=== PATIENT | female | born 1980 | race Caucasian/White ===

== ENCOUNTER → 2016-05-18 | Outpatient (REF) | payer BC ==
[~2016-05-18] MED LIST: /ESOM40CA PO; /ONDA4TA PO; ACET65TA OR; ALBU17IN INH; ALBU83IN INH; BACITAB3 PO; CETI10TA OR; CHOL4POW4 PO; CHOLPOW PO; CITA20TA4 PO; COUM1TAB17 PO; Celebrex PO; DOCU10CA PO; DYMI137S; FIRS1SOL3 PO; HYOS0.374 PO; IBUP80TA PO; LOPE-3 PO; LOVE0.8I3 SC; MAALOX OR; MAALSUS2 PO; MAALSUS8 PO; MACRODANTIN OR; METR500T10 PO; MULTTAB4 PO; MYLASUS2 PO; NORC5TAB PO; NORCOTAB PO; ONDA4TAB6 PO; PREN1TAB11 PO; PROT1TAB2 PO; PROTPAK PO; SING10TA32 PO; SUCR1TA PO; SUMA25TA3 PO; TYLE325T5 PO; Tramadol PO; VANC250C2 PO; VICO5TAB16 PO; VITA10002 PO; WARF-18 PO; WARF-23 PO; XARE20TA PO; ZOFR20TA PO; ZOFR4TAB3 PO; ZYRT10CA PO; prenatal vitamins OR
== END | disposition home or self-care (01) ==
LOC: M LAB REF 08:47
PROVIDERS: ATTEND Physician Assistant
DX: J11.1 Influenza due to unidentified influenza virus with other respiratory manifestations (principal)

== ENCOUNTER → 2016-06-17 | Outpatient (REF) | payer BC | LOC: M LAB REF 17:30 | PROVIDERS: ATTEND Advanced Practice Midwife | DX: Z12.4 Encounter for screening for malignant neoplasm of cervix (principal); R87.610 Atypical squamous cells of undetermined significance on cytologic smear of cervix (ASC-US) ==

== ENCOUNTER 2017-04-11 20:28 | Emergency (ER) | payer BC ==
[2017-04-11] MEDS: NS 1,000 ML IV (21:15)
[2017-04-11] MEDS: ONDANSETRON 4MG/2ML VIAL (J2405) IV (21:15)
[2017-04-11] MEDS: GASTROGRAFIN SOLUTION 30ML PO (21:30)
[2017-04-11 21:37] LABS: KETONE, URINE AUTO RFX TRACE mg/dL (NEGATIVE); LEUKOCYTE ESTERASE UR AUTO RFX NEGATIVE (NEGATIVE); MUCUS, URINE RFX SMALL (NEGATIVE); NITRITE, URINE AUTO RFX NEGATIVE (NEGATIVE); RBC, URINE AUTO RFX 2 /HPF (0-3); SPECIFIC GRAVITY UR AUTO RFX 1.025 (1.002-1.035); SQUAM EPITHELIAL CELL UR AURFX 1 /HPF (0-6); WBC, URINE AUTO RFX 2 /HPF (0-3)
[2017-04-11] MEDS: MORPHINE 2 MG/ML 1ML SYRINGE IV (21:55)
[2017-04-11 22:00] LABS: BASO # 0.1 10^3/uL (0.0-0.2); BASO % 0.3 % (0.0-1.0); EOS % 0.1 % (0.0-3.0); HEMATOCRIT 44.7 % (36.0-47.0); HEMOGLOBIN 14.6 g/dl (12.0-16.0); IMMATURE GRANULOCYTE # 0.1 10^3/uL (0-0); IMMATURE GRANULOCYTE % 0.4 % (0-0); LYMPH # 1.6 10^3/uL (1.5-4.5); LYMPH % 9.3 % (24.0-44.0); MEAN CORPUSCULAR HEMOGLOBIN 29.9 pg (27.0-33.0); MEAN CORPUSCULAR HGB CONC 32.7 g/dl (32.0-36.5); MEAN CORPUSCULAR VOLUME 91.6 fl (80.0-96.0); MONO # 0.6 10^3/uL (0.0-0.8); MONO % 3.7 % (0.0-5.0); NEUTROPHILS # 14.4 10^3/uL (1.8-7.7); NEUTROPHILS % 86.2 % (36.0-66.0); PLATELET COUNT, AUTOMATED 353 10^3/uL (150-450); RED BLOOD COUNT 4.88 10^6/uL (4.00-5.40); RED CELL DISTRIBUTION WIDTH 12.4 % (11.5-14.5); WHITE BLOOD COUNT 16.8 10^3/uL (4.0-10.0)
[2017-04-11 22:15] LABS: CONTROL LINE UCG INT CTR LINE PRESENT; URINE PREG TEST NEGATIVE (NEGATIVE)
[2017-04-11 22:16] LABS: INR 1.16
[2017-04-11 22:25] LABS: ALBUMIN 3.6 GM/DL (3.2-5.2); ALBUMIN/GLOBULIN RATIO 0.73 (1.00-1.93); ALKALINE PHOSPHATASE 146 U/L (45-117); ALT/SGPT 22 U/L (12-78); ANION GAP 8 MEQ/L (8-16); AST/SGOT 14 U/L (7-37); BILIRUBIN,DIRECT < 0.1 MG/DL (0.0-0.2); BILIRUBIN,TOTAL 0.3 MG/DL (0.2-1.0); BLOOD UREA NITROGEN 9 MG/DL (7-18); CALCIUM LEVEL 8.7 MG/DL (8.5-10.1); CARBON DIOXIDE LEVEL 25 MEQ/L (21-32); CHLORIDE LEVEL 107 MEQ/L (98-107); CREATININE FOR GFR 0.78 MG/DL (0.55-1.02); GLOMERULAR FILTRATION RATE > 60.0 (>60); GLUCOSE, FASTING 82 MG/DL (70-105); LIPASE 108 U/L (73-393); POTASSIUM SERUM 3.6 MEQ/L (3.5-5.1); SODIUM LEVEL 140 MEQ/L (136-145); TOTAL PROTEIN 8.5 GM/DL (6.4-8.2)
[2017-04-11] MEDS: GASTROGRAFIN SOLUTION 30ML (Q9963) PO (22:35)
[2017-04-11] MEDS ORDERED: ISOVUE-370 76% 100ML VIAL (Q9967) As Ordered (22:43)
[2017-04-12] MEDS: CIPROFLOXACIN 500 MG TAB PO (00:02)
[2017-04-12] MEDS: NORCO 5/325MG TABLET (BULK FOR ED) PO (00:03)
== END 2017-04-12 00:11 | disposition home or self-care (01) ==
LOC: M ED 04-12 00:11
DX: N83.299 Other ovarian cyst, unspecified side (principal); N39.0 Urinary tract infection, site not specified; R10.9 Unspecified abdominal pain; Z87.440 Personal history of urinary (tract) infections; K58.9 Irritable bowel syndrome, unspecified; K21.9 Gastro-esophageal reflux disease without esophagitis; K57.90 Diverticulosis of intestine, part unspecified, without perforation or abscess without bleeding; Z97.5 Presence of (intrauterine) contraceptive device; Z79.899 Other long term (current) drug therapy; Z88.0 Allergy status to penicillin; Z88.8 Allergy status to other drugs, medicaments and biological substances; Z88.5 Allergy status to narcotic agent
CPT/HCPCS: Q9963

== ENCOUNTER → 2017-04-17 | Outpatient (REF) | payer BC | LOC: M LAB REF 18:14 | DX: R31.9 Hematuria, unspecified (principal) | CPT/HCPCS: 87086 ==

== ENCOUNTER → 2017-09-21 | Outpatient (CLI) | payer SELFPAY | LOC: M WUC 15:52 | DX: S60.211A Contusion of right wrist, initial encounter (principal); X58.XXXA Exposure to other specified factors, initial encounter; Y92.9 Unspecified place or not applicable; Y93.9 Activity, unspecified | CPT/HCPCS: 73110 ==

== ENCOUNTER 2018-03-05 14:21 | Emergency (ER) | payer BC, OTHER, SELFPAY ==
[2018-03-05] MEDS ORDERED: GI COCKTAIL 50ML BTL(HYOSCYAMINE/MAALOX/LIDOCAINE VISCOUS)(1:3:1) As Ordered (15:32)
[2018-03-05] MEDS: GI COCKTAIL 50ML BTL(HYOSCYAMINE/MAALOX/LIDOCAINE VISCOUS)(1:3:1) PO (15:35)
[2018-03-05 15:44] LABS: BASO % 0.2 % (0.0-1.0); HEMATOCRIT 40.3 % (36.0-47.0); HEMOGLOBIN 13.3 g/dl (12.0-15.5); IMMATURE GRANULOCYTE % 0.3 % (0-3.0); LYMPH # 0.8 10^3/uL (1.5-4.5); LYMPH % 4.7 % (24.0-44.0); MEAN CORPUSCULAR HEMOGLOBIN 29.7 pg (27.0-33.0); MONO # 0.7 10^3/uL (0.0-0.8); NEUTROPHILS % 90.8 % (36.0-66.0); PLATELET COUNT, AUTOMATED 368 10^3/uL (150-450); RED BLOOD COUNT 4.48 10^6/uL (4.00-5.40); RED CELL DISTRIBUTION WIDTH 12.7 % (11.5-14.5); WHITE BLOOD COUNT 17.6 10^3/uL (4.0-10.0)
[2018-03-05 15:50] LABS: CONTROL LINE HCG INT CTR LINE PRESENT; HCG, SERUM QUALITATIVE NEGATIVE (NEGATIVE); INR 1.58; PROTHROMBIN TIME 19.2 SECONDS (12.1-14.4)
[2018-03-05 15:51] LABS: PARTIAL THROMBOPLASTIN TIME 34.4 SECONDS (25.4-37.6)
[2018-03-05 15:58] LABS: ANION GAP 8 MEQ/L (8-16); BLOOD UREA NITROGEN 9 MG/DL (7-18); C REACTIVE PROTEIN QUANTITATIV 2.37 MG/DL (0.00-0.30); CALCIUM LEVEL 8.5 MG/DL (8.5-10.1); CARBON DIOXIDE LEVEL 24 MEQ/L (21-32); CHLORIDE LEVEL 105 MEQ/L (98-107); CK-MB VALUE MASS < 1.0 NG/ML (<3.6); CPK CREATINE PHOSPHOKINASE 78 U/L (26-192); CREATININE FOR GFR 0.96 MG/DL (0.55-1.30); GLOMERULAR FILTRATION RATE > 60.0 (>60); GLUCOSE, FASTING 100 MG/DL (70-100); MB/CK RELATIVE INDEX 1.28 (< OR =4); NT-PRO BNP 47 PG/ML (<125); POTASSIUM SERUM 3.8 MEQ/L (3.5-5.1); SODIUM LEVEL 137 MEQ/L (136-145); TROPONIN I < 0.02 NG/ML (< 0.10)
[2018-03-05 16:02] LABS: ERYTHROCYTE SEDIMENTATION RATE 28 mm/hr (0-20)
[2018-03-05] MEDS: ACETAMINOPHEN TAB 650MG DOSE (2X325MG) PO (16:03)
[2018-03-05] MEDS: NS 1,000 ML IV (16:04)
[2018-03-05] MEDS: KETOROLAC 30 MG/ML VIAL (J1885) IV (18:30)
[2018-03-05] MEDS ORDERED: ISOVUE-370 76% 100ML VIAL (Q9967) As Ordered (18:33)
[2018-03-05] MEDS: CLINDAMYCIN 150 MG CAP PO (20:00)
[2018-03-05] MEDS: NORCO 5/325MG TABLET (BULK FOR ED) PO (20:15)
== END 2018-03-05 20:24 | disposition home or self-care (01) ==
LOC: M ED 14:21
DX: J69.0 Pneumonitis due to inhalation of food and vomit (principal); K21.9 Gastro-esophageal reflux disease without esophagitis; G43.909 Migraine, unspecified, not intractable, without status migrainosus; F90.9 Attention-deficit hyperactivity disorder, unspecified type; M19.90 Unspecified osteoarthritis, unspecified site; K58.9 Irritable bowel syndrome, unspecified; Z86.711 Personal history of pulmonary embolism; Z86.19 Personal history of other infectious and parasitic diseases; Z79.01 Long term (current) use of anticoagulants; Z87.891 Personal history of nicotine dependence
CPT/HCPCS: Q9967

== ENCOUNTER → 2018-03-11 | Outpatient (REF) | payer OTHER | LOC: M LAB REF 13:28 | DX: R19.7 Diarrhea, unspecified (principal) | CPT/HCPCS: 87507 ==

== ENCOUNTER → 2018-07-17 | Outpatient (REF) | payer OTHER ==
[~2018-07-17] MED LIST changes: -/ESOM40CA PO; -/ONDA4TA PO; +BACITAB PO; -BACITAB3 PO; +BUPR300T34 PO; +BUSP10TA PO; +CIPR-249 PO; -CITA20TA4 PO; +CITA20TA6 PO; +CLIN150C14 PO; +CLON0.5T8 PO; +FERR325T3 PO; -FIRS1SOL3 PO; +FIRS50SO PO; +HYDR-3715 PO; +MAGN200T PO; +MELA3TAB49 PO; +METR-265 PO; -METR500T10 PO; +MYLASUS16 PO; -MYLASUS2 PO; +NEXI1CAP3 PO; +NEXI40CA PO; +NORC1TAB7 PO; -NORC5TAB PO; -NORCOTAB PO; +ONDA-1 PO; +RANI150T PO; -VANC250C2 PO; +VANC250C3 PO; -VICO5TAB16 PO; +VICO5TAB17 PO; +VYVA30CA4 PO; -ZOFR20TA PO; +ZOFR4TAB14 PO; +ZOFR4TAB16 PO; -ZOFR4TAB3 PO
== END ==
LOC: M LAB REF 12:25
PROVIDERS: ATTEND Nurse Practitioner Family
DX: N76.0 Acute vaginitis (principal)

== ENCOUNTER → 2018-12-15 | Outpatient (REF) | payer OTHER ==
[~2018-12-15] MED LIST changes: +CYAN100049 PO; -VITA10002 PO
[2018-12-18 14:42] LABS: HPV HYBRID CAPTURE II Negative (Negative)
== END ==
LOC: M LAB REF 14:56
PROVIDERS: ATTEND Advanced Practice Midwife
DX: Z12.4 Encounter for screening for malignant neoplasm of cervix (principal)
CPT/HCPCS: 87624; G0123

== ENCOUNTER → 2018-12-15 | Outpatient (REF) | payer OTHER ==
[2018-12-15 15:15] LABS: CHLAMYDIA DNA AMPLIFICATION NEGATIVE (NEGATIVE); GC DNA AMPLIFICATION NEGATIVE (NEGATIVE)
== END ==
LOC: M LAB REF 13:18
PROVIDERS: ATTEND Advanced Practice Midwife
DX: R10.2 Pelvic and perineal pain (principal)

== ENCOUNTER → 2018-12-22 | Outpatient (CLI) | payer BC, OTHER ==
[~2018-12-22] MED LIST changes: -BUPR300T34 PO; +BUPR300T92 PO; +CLON0.5T2 PO; -CLON0.5T8 PO; +LEVA45AE INH; +OMEP-221 OR; +RISP0.5T3 OR; +TRAZ-257 OR
--- NOTE | 2018-12-22 09:54 | REPMRS ---
Patient History The patient states she had a clinical breast exam in 2018. Family history of breast cancer at age 58 in mother, ovarian cancer at age 60 in maternal aunt, bladder cancer in father. Taking hormonal contraceptives for 2 years 6 months. 3D TOMOSYNTHESIS WAS PERFORMED. Digital Mammo Diagnostic Bilateral: December 22, 2018 - Exam #: [id number] Bilateral CC and MLO view(s) were taken. Technologist: Daphne Hunter, Technologist FINDINGS: The breast tissue is extremely dense which could obscure a lesion on mammography. There is no evidence of cancer on this mammogram. Assessment: BI-RADS/ACR category 2 mammogram. Benign Findings. Recommendation Routine screening mammogram of both breasts in 1 year (for women over age 40). This mammogram was interpreted with the aid of an FDA-approved computer-aided dectection system. THE LIFETIME RISK OF BREAST CANCER IS 28.6%, THEREFORE SUPPLEMENTAL SCREENING MRI OF THE BREASTS IS RECOMMENDED IN 6 MONTHS. Electronically Signed By: Jose Aguilera MD 12/22/18 0974
--- NOTE | 2018-12-23 04:41 | REP ---
Clinical: Irregular menstrual cycles and menorrhagia . Technique: Transabdominal pelvic ultrasound with color Doppler evaluation of the ovaries. Findings: Bladder is unremarkable and measures 7.2 x 2.1 x 5.0 cm Normal anteverted uterus measures 8.8 x 3.8 x 5.6 cm . The endometrial complex measures 2.5 mm thickness. No discrete uterine or endometrial abnormalities are appreciated. IUD identified in satisfactory position. Bilateral ovaries are normal in appearance and vascularity without evidence for torsion. Right ovary measures 3.2 x 2.0 x 2.4 cm ; R I = 0.58 . Left ovary measures 3.2 x 1.3 x 1.9 cm ; R I = 0.70. Incidental 2.1 cm right ovarian cyst likely physiologic. No pelvic free fluid or adnexal mass lesion Impression: 1. Normal pelvic ultrasound. Electronically Signed by Lenny Chahal MD 12/23/2018 04:32 A
== END ==
LOC: M RAD 09:07
PROVIDERS: ATTEND Advanced Practice Midwife
DX: N63.20 Unspecified lump in the left breast, unspecified quadrant (principal); N92.6 Irregular menstruation, unspecified

== ENCOUNTER 2019-03-01 14:13 | Emergency (ER) | payer BC, OTHER ==
[~2019-03-01] VITALS: Ht 162.6 cm; Wt 103.4 kg
[~2019-03-01 14:13] MED LIST changes: +BUPR300T34 PO; -BUPR300T92 PO; -LEVA45AE INH; -OMEP-221 OR; -RISP0.5T3 OR; -TRAZ-257 OR
--- NOTE | 2019-03-01 14:56 | REP ---
Head CT without contrast: History: Injury in a fall. Patient on blood thinner. Comparison study: November 17, 2011. CT findings: Bone window settings demonstrate an intact bony calvarium. There is no evidence of skull fracture or incidental bony calvarial lesion. The visualized paranasal sinuses appear clear. No intraorbital abnormality is seen. On soft tissue window setting images; the lateral, third, and fourth ventricles are normal in size and position. Aguilera-white differentiation pattern is normal above and below the tentorium. There are is no evidence of intracranial hemorrhage. No mass, edema, infarction, or midline shift is seen. No extra-axial fluid collection is appreciated. Impression: Negative noncontrast head CT. Electronically Signed by Kam Hsu MD 03/01/2019 02:47 P
--- NOTE | 2019-03-01 14:57 | REP ---
CT study of the cervical spine without contrast: History: Injury in a fall. Patient on blood thinner. Technique: Helical scanning is acquired and overlapping 2 mm high resolution axial images were generated and reviewed at bone and soft tissue window settings. Coronal and sagittal multiplanar re-formations images are generated. CT findings: There is no evidence of cervical spine element fracture. No skull base fracture is seen. Cervical vertebral body heights are preserved. Alignment is normal. Facet joints are normally aligned bilaterally at each cervical level on multiplanar re-formations images. There is no evidence of intraspinal or paraspinal hematoma. No extra vertebral abnormality is seen. There is minimal degenerative uncovertebral spurring on the left at C3-C4. There is straightening. No other finding. Impression: Minimal discogenic uncovertebral spurring on the left at C3-4. Straightening. Otherwise negative CT study of the cervical spine without contrast. No fracture seen. Electronically Signed by Kam Hsu MD 03/01/2019 02:49 P
[2019-03-01] MEDS ORDERED: LEVA45AE INH (15:06)
[2019-03-01] MEDS ORDERED: RISP0.5T3 OR (15:06)
[2019-03-01] MEDS ORDERED: TRAZ-163 OR (15:06)
[2019-03-01] MEDS ORDERED: OMEP-221 OR (15:06)
[2019-03-01 15:37] LABS: BASO # 0.1 10^3/uL (0.0-0.2); BASO % 0.6 % (0.0-1.0); EOS # 0.1 10^3/uL (0.0-0.5); EOS % 0.8 % (0.0-3.0); HEMATOCRIT 42.2 % (36.0-47.0); HEMOGLOBIN 13.5 g/dl (12.0-15.5); LYMPH # 1.8 10^3/uL (1.5-5.0); LYMPH % 22.9 % (24.0-44.0); MEAN CORPUSCULAR HEMOGLOBIN 29.3 pg (27.0-33.0); MEAN CORPUSCULAR VOLUME 91.5 fl (80.0-96.0); MONO # 0.5 10^3/uL (0.0-0.8); MONO % 6.7 % (0.0-5.0); NEUTROPHILS # 5.4 10^3/uL (1.5-8.5); NEUTROPHILS % 68.6 % (36.0-66.0); PLATELET COUNT, AUTOMATED 346 10^3/uL (150-450); RED BLOOD COUNT 4.61 10^6/uL (4.00-5.40); WHITE BLOOD COUNT 7.9 10^3/uL (4.0-10.0)
[2019-03-01 16:04] LABS: ALBUMIN 3.3 GM/DL (3.2-5.2); ALT/SGPT 14 U/L (12-78); BILIRUBIN,DIRECT < 0.1 MG/DL (0.0-0.2); BILIRUBIN,TOTAL 0.2 MG/DL (0.2-1.0); BLOOD UREA NITROGEN 5 MG/DL (7-18); CALCIUM LEVEL 8.5 MG/DL (8.5-10.1); CARBON DIOXIDE LEVEL 26 MEQ/L (21-32); CHLORIDE LEVEL 106 MEQ/L (98-107); CREATININE FOR GFR 0.94 MG/DL (0.55-1.30); GLOMERULAR FILTRATION RATE > 60.0 (>60); GLUCOSE, FASTING 85 MG/DL (70-100); LIPASE 50 U/L (73-393); SODIUM LEVEL 139 MEQ/L (136-145); TOTAL PROTEIN 7.3 GM/DL (6.4-8.2)
[2019-03-01] MEDS ORDERED: ISOVUE-370 76% 100ML VIAL (Q9967) As Ordered ONE (16:09)
--- NOTE | 2019-03-01 16:32 | REP ---
RIGHT ELBOW, FOUR VIEWS: There is no evidence of an acute fracture, dislocation or intrinsic bone disease. IMPRESSION: No fracture or dislocation. Electronically Signed by Jose Aguilera MD 03/02/2019 09:52 A
--- NOTE | 2019-03-01 16:33 | REP ---
RIGHT WRIST, FOUR VIEWS: There is no evidence of an acute fracture, dislocation or intrinsic bone disease. IMPRESSION: No fracture or dislocation. Electronically Signed by Jose Aguilera MD 03/02/2019 09:52 A
--- NOTE | 2019-03-01 16:47 | REP ---
Clinical: Intra-abdominal trauma. Technique: Axial contrast enhanced images from the lung bases to the pubic symphysis with coronal and sagittal re-formations using 100 ml Isovue 370 intravenous contrast material. Comparison: 04/11/2017. Findings: Lung bases are clear. Visualized heart and pericardium normal. No evidence for solid organ injury. Liver, spleen, pancreas, bilateral adrenal glands and kidneys are normal. Evidence of prior cholecystectomy. The enteric system is without obstruction or acute inflammatory process. Pelvis demonstrates normal bladder and age-appropriate uterus/adnexa with IUD in satisfactory position. No ascites. No free air. No adenopathy. Abdominal aorta and vasculature appear normal. Musculoskeletal structures are intact. Impression: No acute abdominopelvic pathology or trauma/injury. Electronically Signed by Lenny Chahal MD 03/01/2019 04:39 P
--- NOTE | 2019-03-01 17:12 | REP ---
Lumbar spine series: Five views. History: Trauma. Findings: Five views of the lumbar spine presented. There are clips in right upper quadrant of the abdomen post cholecystectomy. An IUD is seen in the central pelvis. Lumbar vertebral body heights are preserved. Alignment is normal. Disc spaces are maintained. There is no evidence of spondylolysis or spondylolisthesis. No fracture or collapse is seen. No transverse process fracture is seen. Psoas margins are intact. Sacrum and SI joints are intact. There is mild facet hypertrophy bilaterally at L5-S1. Impression: Negative lumbar spine radiographs. No traumatic abnormality noted. Surgical clips in the right upper quadrant. IUD projects in the central pelvis. Electronically Signed by Kam Hsu MD 03/02/2019 10:44 A
[2019-03-01] MEDS ORDERED: ACETAMINOPHEN TAB 650MG DOSE (2X325MG) PO ONE (17:45)
[2019-03-01 18:11] VITALS: BP 125/72
== END 2019-03-01 18:15 | disposition home or self-care (01) ==
LOC: M ED 14:13
DX: S09.90XA Unspecified injury of head, initial encounter (principal); S50.01XA Contusion of right elbow, initial encounter; S63.501A Unspecified sprain of right wrist, initial encounter; S16.1XXA Strain of muscle, fascia and tendon at neck level, initial encounter; S30.0XXA Contusion of lower back and pelvis, initial encounter; W10.8XXA Fall (on) (from) other stairs and steps, initial encounter; Y92.018 Other place in single-family (private) house as the place of occurrence of the external cause; J45.909 Unspecified asthma, uncomplicated; F33.9 Major depressive disorder, recurrent, unspecified; F41.9 Anxiety disorder, unspecified; F43.10 Post-traumatic stress disorder, unspecified; Z79.899 Other long term (current) drug therapy; Z79.01 Long term (current) use of anticoagulants; Z88.0 Allergy status to penicillin; Z88.1 Allergy status to other antibiotic agents; Z88.5 Allergy status to narcotic agent; Z88.8 Allergy status to other drugs, medicaments and biological substances
CPT/HCPCS: 36415; 70450; 72110; 72125; 73080; 73110; 74177; 80048; 80076; 81001; 83690; 85025; 99283; Q9967

== ENCOUNTER → 2019-12-03 | Outpatient (CLI) | payer BC, OTHER ==
[~2019-12-03] MED LIST changes: +BUPR15TA PO; -BUPR300T34 PO; +BUPR300T92 PO; +FAMO40TA3 PO; +FROV2.5T6 PO; +LEVA45AE INH; +OMEP-221 OR; +PRED20TA PO; +RISP0.5T3 OR; +TRAZ-257 OR
--- NOTE | 2019-12-21 15:57 | REP ---
CHEST X-RAY: HISTORY: Costochondral junction syndrome. TECHNIQUE: PA and lateral COMPARISON: 07/31/15 FINDINGS: Mediastinum and cardiac silhouette are normal. Lung oviedo are clear. No focal consolidation, effusion or pneumothorax. Surrounding musculoskeletal structure are intact and normal in appearance. IMPRESSION: Normal chest x-ray. MTDD
== END ==
LOC: M WUC 11:42
PROVIDERS: ATTEND Registered Nurse
DX: M94.0 Chondrocostal junction syndrome [Tietze] (principal)

== ENCOUNTER 2020-01-03 19:58 | Emergency (ER) | payer BC, OTHER ==
[~2020-01-03] VITALS: Ht 162.6 cm; Wt 111.9 kg
[~2020-01-03 19:58] MED LIST changes: -BUPR15TA PO; -FAMO40TA3 PO; -FROV2.5T6 PO; -PRED20TA PO
[2020-01-03] MEDS ORDERED: FAMO40TA3 PO (20:16)
[2020-01-03] MEDS ORDERED: FROV2.5T6 PO (20:16)
[2020-01-03] MEDS ORDERED: BUPR15TA PO (20:19)
[2020-01-03] MEDS ORDERED: COMBIVENT RESPIMAT 100-20MCG INHALER 4GM INH SCH (21:00)
[2020-01-03] MEDS ORDERED: dexameTHASONE 20MG/5ML VIAL (J1100 PER 1MG) IV ONE (21:00)
[2020-01-03 21:10] LABS: BASO % 0.4 % (0.0-1.0); EOS # 0.1 10^3/uL (0.0-0.5); EOS % 0.9 % (0.0-3.0); HEMATOCRIT 39.6 % (36.0-47.0); HEMOGLOBIN 13.1 g/dl (12.0-15.5); LYMPH # 2.3 10^3/uL (1.5-5.0); LYMPH % 26.2 % (24.0-44.0); MEAN CORPUSCULAR HEMOGLOBIN 28.9 pg (27.0-33.0); MEAN CORPUSCULAR HGB CONC 33.1 g/dl (32.0-36.5); MEAN CORPUSCULAR VOLUME 87.2 fl (80.0-96.0); MONO # 0.5 10^3/uL (0.0-0.8); MONO % 5.8 % (0.0-5.0); NEUTROPHILS # 5.9 10^3/uL (1.5-8.5); NEUTROPHILS % 66.4 % (36.0-66.0); PLATELET COUNT, AUTOMATED 411 10^3/uL (150-450); RED BLOOD COUNT 4.54 10^6/uL (4.00-5.40); WHITE BLOOD COUNT 8.9 10^3/uL (4.0-10.0)
[2020-01-03 21:21] LABS: INR 1.13; PROTHROMBIN TIME 14.7 SECONDS (12.5-14.3)
[2020-01-03 21:45] LABS: ALBUMIN 3.2 GM/DL (3.2-5.2); ALT/SGPT 23 U/L (12-78); BILIRUBIN,DIRECT < 0.1 MG/DL (0.0-0.2); BILIRUBIN,TOTAL 0.2 MG/DL (0.2-1.0); BLOOD UREA NITROGEN 9 MG/DL (7-18); CALCIUM LEVEL 9.2 MG/DL (8.5-10.1); CARBON DIOXIDE LEVEL 24 MEQ/L (21-32); CHLORIDE LEVEL 107 MEQ/L (98-107); CK-MB VALUE MASS < 1.0 NG/ML (<3.6); CPK CREATINE PHOSPHOKINASE 63 U/L (26-192); GLOMERULAR FILTRATION RATE > 60.0 (>58); GLUCOSE, FASTING 88 MG/DL (70-100); MB/CK RELATIVE INDEX 1.59 (< OR =4); NT-PRO BNP 10 PG/ML (<125); SODIUM LEVEL 137 MEQ/L (136-145); THYROXINE (T4) 8.9 UG/DL (4.5-12.0); TOTAL PROTEIN 7.5 GM/DL (6.4-8.2); TROPONIN I < 0.02 NG/ML (< 0.10)
[2020-01-03 21:52] LABS: HCG, SERUM QUALITATIVE NEGATIVE (NEGATIVE)
--- NOTE | 2020-01-03 22:24 | REPVR ---
PROCEDURE INFORMATION: Exam: XR Chest, 1 View Exam date and time: 01/03/2020 8:47 PM Age: 39 years old Clinical indication: Chest pain; Type not specified; Additional info: Dyspnea/cough TECHNIQUE: Imaging protocol: XR of the chest Views: 1 view. COMPARISON: CR CHEST 2 VIEW 12/03/2019 11:57 AM FINDINGS: Lungs: Unremarkable. No consolidation. Pleural space: Unremarkable. No pleural effusion. No pneumothorax. Heart/Mediastinum: Unremarkable. No cardiomegaly. Bones/joints: Unremarkable. IMPRESSION: No acute findings. Electronically signed by: Maxim Figueroa On 01/03/2020 22:24:34 PM
[2020-01-03] MEDS ORDERED: PRED20TA PO (23:12)
[2020-01-03 23:30] VITALS: BP 120/83
--- NOTE | 2020-01-04 09:39 | ECGEPIP ---
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
== END 2020-01-03 23:57 | disposition home or self-care (01) ==
LOC: M ED 19:58
DX: J45.901 Unspecified asthma with (acute) exacerbation (principal); K21.9 Gastro-esophageal reflux disease without esophagitis; J30.2 Other seasonal allergic rhinitis; Z88.1 Allergy status to other antibiotic agents; Z88.8 Allergy status to other drugs, medicaments and biological substances; Z88.5 Allergy status to narcotic agent; Z79.3 Long term (current) use of hormonal contraceptives; Z79.899 Other long term (current) drug therapy
CPT/HCPCS: 71045; 80048; 80076; 82550; 82553; 83880; 84436; 84443; 84484; 84703; 85025; 85610; 87040; 93005; 93041; 94640; 94760; 96374; 99285; J1100

== ENCOUNTER → 2020-04-12 | Outpatient (CLI) | payer BC, OTHER ==
[~2020-04-12] MED LIST changes: +BUPR15TA PO; +FAMO40TA3 PO; +FROV2.5T6 PO; +PRED20TA PO; +RISP-7 OR; -RISP0.5T3 OR
[2020-04-12 14:30] LABS: MAGNESIUM LEVEL 2.2 MG/DL (1.8-2.4); PHOSPHORUS LEVEL 2.2 MG/DL (2.5-4.9)
== END ==
LOC: M LAB 12:09
PROVIDERS: ATTEND Internal Medicine
DX: M79.10 Myalgia, unspecified site (principal)

== ENCOUNTER → 2020-04-27 | Outpatient (CLI) | payer BC, OTHER ==
[~2020-04-27] MED LIST changes: -CLIN150C14 PO; +CLIN150C15 PO
--- NOTE | 2020-04-27 11:10 | REPMRS ---
Patient History The patient states she had a clinical breast exam in April 2020. Family history of breast cancer at age 58 in mother, ovarian cancer at age 60 in maternal aunt, unknown cancer in father. Took hormonal contraceptives for 4 years 10 months. 3D TOMOSYNTHESIS WAS PERFORMED. Volpara breast density a. Digital Woman Screen Mammo: April 27, 2020 - Exam #: [id number] Bilateral CC and MLO view(s) were taken. Technologist: Alix Crenshaw, Technologist Prior study comparison: December 22, 2018, digital mammo diagnostic bilateral, performed at [facility]. FINDINGS: There are scattered fibroglandular densities. There has been no change in the appearance of the mammogram from the prior studies. There is a mild amount of residual fibroglandular tissue which is fairly symmetric. There is no interval development of dominant mass, architectural distortion, or clustered microcalcification suggestive of malignancy. Assessment: BI-RADS/ACR category 1 mammogram. Negative Mammogram. Recommendation Routine screening mammogram in 1 year (for women over age 40). This mammogram was interpreted with the aid of an FDA-approved computer-aided dectection system. THE LIFETIME RISK OF BREAST CANCER IS 28.4%, THEREFORE SUPPLEMENTAL SCREENING MRI OF THE BREASTS IS RECOMMENDED IN 6 MONTHS. Electronically Signed By: Jose Aguilera MD 04/27/20 0232
== END ==
LOC: M WHC 09:33
PROVIDERS: ATTEND Advanced Practice Midwife
DX: Z12.31 Encounter for screening mammogram for malignant neoplasm of breast (principal)

== ENCOUNTER → 2020-05-25 | Outpatient (REF) | payer OTHER | LOC: M PLALAB 12:37 | PROVIDERS: ATTEND Nurse Practitioner Family | DX: E83.39 Other disorders of phosphorus metabolism (principal) ==

== ENCOUNTER → 2020-07-28 | Outpatient (REF) | payer OTHER | LOC: M SFHCRHEU 13:06 | PROVIDERS: ATTEND Internal Medicine | DX: E83.39 Other disorders of phosphorus metabolism (principal) ==

== ENCOUNTER → 2020-12-18 | Outpatient (CLI) | payer OTHER ==
[~2020-12-18] MED LIST changes: -CLIN150C15 PO; +CLIN150C17 PO
[2020-12-18 12:37] LABS: C REACTIVE PROTEIN QUANTITATIV 1.29 MG/DL (0.00-0.30); CPK CREATINE PHOSPHOKINASE 43 U/L (26-192); IRON (FE) 64 UG/DL (50-170); MAGNESIUM LEVEL 2.3 MG/DL (1.8-2.4); PHOSPHORUS LEVEL 2.1 MG/DL (2.5-4.9); RHEUMATOID FACTOR QUANT < 10.0 IU/ML (<15.0); TOTAL 25(OH) VITAMIN D 30.4 NG/ML (30.0-100.0); VITAMIN B12 LEVEL 432 PG/ML (247-911)
[2020-12-19 23:07] LABS: ANA (HEP2) Negative (.); CYCLIC CITRULLINATED PEPTIDE 7 units (0-19)
== END ==
LOC: M PLALAB 08:35
PROVIDERS: ATTEND Internal Medicine
DX: M79.10 Myalgia, unspecified site (principal); M25.50 Pain in unspecified joint

== ENCOUNTER → 2021-01-11 | Outpatient (CLI) | payer BC, OTHER ==
--- NOTE | 2021-01-16 16:41 | SLEEPHOME ---
DATE: 01/11/2021 ORDERED BY: Dr. Natalee Ramos Diagnostic home sleep testing was performed due to concern for the obstructive sleep apnea syndrome in this patient with a history of fatigue. For testing, a NOX T3 respiratory monitoring device was used. Continuous record was made of pulse, oxygen saturation, air flow, chest and abdominal strain, and body position. There was 9 hours and 59 minutes of data reviewed. There was 7 hours and 32 minutes marked as time in bed. During the interval marked time in bed, there were 41 respiratory events identified of 10 seconds in duration or greater for a respiratory event index of 5.4. The events were obstructive. Baseline pulse rate 85. Pulse rate ranged 67-105. Baseline saturation 95%. Saturations fell to 86%, and testing was performed in both the supine and nonsupine positions. IMPRESSION: Abnormal home sleep testing with repetitive respiratory events and oxygen desaturations to 86% with a respiratory event index of 5.4 is consistent with the obstructive sleep apnea syndrome. RECOMMENDATION: The patient should be encouraged to undergo formal sleep evaluation.
== END ==
LOC: M SLEEP HO 10:36
PROVIDERS: ATTEND Internal Medicine
DX: R53.83 Other fatigue (principal)

== ENCOUNTER 2021-02-14 20:24 | Emergency (ER) | payer BC, OTHER ==
[~2021-02-14] VITALS: Ht 162.6 cm; Wt 115.5 kg
--- OUTSIDE RECORDS SUMMARY | 2021-02-14 20:34 | CCD | Continuity of Care Document ---
Author Organization Unknown Address Unknown Phone Unavailable Care Team Providers Care Physiologist Name Role Phone Carol Tracey AUTM [phone] Rehana Hall AUTM [phone] Problems Description No Information Available Social History Type Date Description Comments Sex Unknown ETOH Use Denies alcohol use Tobacco Use Start: Unknown Patient has never smoked Allergies, Adverse Reactions, Alerts Active Allergies Criticality Reaction | Severity Comments Date Ceftin Unable to assess criticality Cruz 02/14/2015 Oxycodone Unable to assess criticality anxiety 02/14/2015 Inactive Allergies NKDA Unable to assess criticality 02/14/2015 Medications Active Medications SIG Qnty Indications Ordering Provide r Date Fluconazole 150mg Tablets Take 1 Tablet By Mouth Today. Repeat In 2 Days 2tabs KYLE Elizondo 12/15/2019 Famotidine 40mg Tablets Take 1 Tablet By Mouth Every Day 90tabs Chacorta Caicedo MD 07/13/2019 Nebulizer Device use as d irected Josefina Morales FNP 07/09/2019 Nebulizer Kit/Tubing/Mouthpiece K it use four times a day dx j44.9 Josefina Morales FNP Omeprazole 40mg Capsules DR Take 1 Capsule By Mouth Twice Daily 60caps KYLE Elizondo 02/08/20 17 Zyrtec Allergy 10mg Tablets 1 by mouth every day prn KYLE Traylor 01/05/2016 Tums 500mg Chewtabs as needed KYLE Florez 06/13/2015 Mirena 20mcg/24HR IUD Unknown 05/23/2015 Xarelto 20mg Tablets Take 1 Tablet By Mouth Every Day 30tabs Ratna Portillo M.D. 05/12/19 16 Hyoscyamine Sulfate ER 0.375mg Tablets ER 12HR Take 1 Tablet By Mouth Every 12 Hours as Directed 60tabs Rehana Hall, [facility] 2015 Zofran 4mg Tablets 1 by mouth every 6 hrs. as needed nausea 40tabs R19.7 Yrn Gil, [facility] 04/04/2015 [place] Carbonate 300mg Capsules one at bedtime Unknown Arnuity Ellipta 100mcg/Act Aerosol 1 inhalation daily Unknown Vyvanse 50mg Capsules Take one capsule PO once daily Unknown Aimovig 140mg/ml Solution Auto-Inject Unknown Benzonatate 100mg Capsules take 1 capsule by mouth three times a day as needed cough 60caps Colli molly Caicedo MD Trazodone HCL 100mg Tablets take one tablet by mouth at bedtime Unknown Frovatriptan Succinate 2.5mg Table ts take 1 tablet by mouth two times a day for 7 days before menses Unknown Levalbuterol Tartrate 45mcg/Act Ae rosol inhale 2 puffs by mouth four times a day Unknown Wellbutrin SR 150mg Tablets ER 12H R by mouth bid a day as directed Unknown Risperidone 0.5mg Tablets 1 by mouth Twice A Day Unknown Clonazepam 0.5mg Tablets 1 by mouth Twice a day Unknown Montelukast Sodium 10mg Tablets one at bedtime 30tabs KAMERON Melo JR 0 000 Medications Administered in Office Medication SIG Qnty Indications Ordering Provider Date Immunization Adminstration,1 Vaccine/Tox oid Injection Yrn Gil, [facility] 04/15/2018 Immunizations CPT Code Status Date Vaccine Lot # U-Flu Given 04/14/2020 Influenza,Unspecified [id number] Given 04/15/2018 Adacel- Tetanus Diphtheria P ertussis (Age64 & Under) [id number] Refused 01/23/2018 Influenza Virus Vaccine, Quadrivalent (Cciiv4), Derived From Cell [id number] Refused 01/13/2017 Influenza Vaccin e Quadrivalent Preser/Antibiotic Free Im Use [id number] Refused 01/13/2017 Influenza Vaccin e Quadrivalent Preser/Antibiotic Free Im Use Vital Signs Date Vital Result Comment 07/14/2020 11:29am BP Systolic 100 mmHg BP Diastolic 60 mmHg Height 64.25 inches 5'4.25" Weight 254.00 lb BMI (Body Mass Index) 43.3 kg/m2 12/09/2019 1:56pm BP Systolic 102 mmHg RT Arm BP Diastolic 60 mmHg RT Arm Heart Rate 108 /min Height 64.25 inches 5'4.25" Weight 247.00 lb BMI (Body Mass Index) 42.1 kg/m2 Results Test Acquired Date Facility Test Result H/L Range Note Laboratory test finding 12/18/2020 [facility] [address] [place] [address] [phone] Erythrocyte Sedimentation Rate 49 mm/hr High 0 -20 Phosphorus Level 2.1 mg/dL Low 2.5-4.9 CPK Creatine Phosphokinase 43 U/L Normal 26-192 Magnesium Level 2.3 mg/dL Normal 1.8-2.4 Iron (Fe) 64 g/dL Normal 50-170 Thyroid Stimulating Hormone 3.370 uIU/ML Normal 0.358-3.740 Vitamin B12 Level 432 pg/mL Normal 247-911 1 Total 25(Oh) Vitamin D 30.4 NG/ML Normal 30.0-100.0 Rheumatoid Factor Quant < 10.0 IU/mL Normal <15.0 C Reactive Protein Quantitativ 1.29 mg/dL High 0.00-0.30 Cyclic Citrullinated Peptide 7 units Normal 0-19 2 Landy Titer & Pattern 12/18/2020 [facility] nter [address] [place] [address] [phone] Landy (Hep2) Negative Normal . 3 1 VITAMIN B12 NORMAL RANGE NORMAL 247 - 911 PG/ML INDETERMINATE 211 - 246 PG/ML DEFICIENT LESS THAN 211 PG/ML 2 Negative <20 Weak positive 20 - 39 Moderate positive 40 - 59 Strong positive >59 3 Negative <1:80 Borderline 1:80 Positive >1:80 ICAP nomenclature: AC-0 For more information about Hep-2 cell patterns use ANApatterns.org, the official website for the International Consensus on Antinuclear Antibody (LANDY) Patterns (ICAP). Performed at: - [facility] [id number] Straddle Bug Operator: Dorinda Garcia MD, Phone: [phone] Performed at: - [facility] [address] [id number] Straddle Bug Operator: Claudia Butterfield MD, Phone: [phone] Procedures Date Code Description Status 07/14/2020 41537 Office/Outpatient Established Mo d MDM 30-39 Min Completed Medical Devices Description No Information Available Encounters Type Date Location Provider Dx Diagnosis Office Visit 07/14/2020 11:20a [facility] 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 Assessments Date Code Description Provider 07/14/2020 K58.0 Irritable bowel syndrome with di arrhea KAMERON Melo JR 07/14/2020 E55.9 Vitamin D deficiency, unspecifie d KAMERON Melo JR 07/14/2020 E78.00 Pure hypercholesterolemia, unspe cified KAMERON Melo JR 07/14/2020 F34.1 Dysthymic disorder KAMERON Schilling JR 07/14/2020 M94.0 Chondrocostal junction syndrome [Tietze] KAMERON Melo JR 07/14/2020 E66.01 Morbid (severe) obesity due to e xcess calories KAMERON Melo JR 07/14/2020 Z68.41 Body mass index [BMI]40.0-44.9, adult KAMERON Melo JR 07/14/2020 Z86.711 Personal history of pulmonary em bolism KAMERON Melo JR 07/14/2020 Z79.01 nursing home (current) use of antic oagulants KAMERON Melo JR Plan of Treatment Future Appointment(s):* 12/22/2020 11:20 am - KYLE Elizodno at [facility] 07/14/2020 - KAMERON Melo JR* K58.0 Irritable bowel syndrome with diarrhea* Comments:* Mostly stable at this time, continue diet and exercise, medications reviewed * E55.9 Vitamin D deficiency, unspecified* Comments:* Continues on supplementation at this time * E78.00 Pure hypercholesterolemia, unspecified* Comments:* reviewed diet and exercise recommendations * F34.1 Dysthymic disorder* Comments:* Follows with psych at [facility], medications reviewed and reconciled in the EMR. She gets all psych related meds there * M94.0 Chondrocostal junction syndrome [Tietze]* Comments:* Continues to have some issues, ibuprofen with relief on occasion * E66.01 Morbid (severe) obesity due to excess calories* Comments:* Diet and exercise reviewed in depth * Z68.41 Body mass index [BMI]40.0-44.9, adult * Z86.711 Personal history of pulmonary embolism* Comments:* Continues on Xarelto * Z79.01 nursing home (current) use of anticoagulants* Comments:* No active signs of bleeding Functional Status Description No Information Available Mental Status Description No Information Available Referrals Description No Information Available
--- OUTSIDE RECORDS SUMMARY | 2021-02-14 20:34 | CCD | Continuity of Care Document ---
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 05/12/19 16 Hyoscyamine Sulfate ER 0.375mg Tablets ER 12HR Take 1 Tablet By Mouth Every 12 Hours as Directed 60tabs Rehana Hall [facility] 2015 Zofran 4mg Tablets 1 by mouth every 6 hrs. as needed nausea 40tabs R19.7 Yrn Gil [facility] 04/04/2015 [place] Carbonate 300mg Capsules one at bedtime Unknown [...] Unknown Risperidone 0.5mg Tablets 1 by mouth tid Unknown Clonazepam 0.5mg Tablets 1 by mouth Twice a day Unknown Montelukast Sodium 10mg Tablets one at bedtime 30tabs KAMERON Melo JR 000 Medications Administered in Office Medication SIG Qnty Indications Ordering Provider Date Immunization Adminstration,1 Vaccine/Tox oid Injection Yrn Gil [facility] 04/15/2018 Immunizations CPT Code Status Date Vaccine Lot # U-Flu Given 04/14/2020 Influenza,Unspecified [id number] Given 04/15/2018 Adacel- Tetanus Diphtheria P ertussis [id number] Refused 01/23/2018 Influenza Virus Vaccine, Quadrivalent (Cciiv4), Derived From Cell [id number] Refused 01/13/2017 Influenza Vaccin e Quadrivalent Preser/Antibiotic Free Im Use 12931 Refused 01/13/2017 Influenza Vaccin e Quadrivalent Preser/Antibiotic Free Im Use Vital Signs Date Vital Result Comment 12/22/2020 11:26am BP Systolic 110 mmHg RT Arm BP Diastolic 80 mmHg RT Arm Heart Rate 100 /min Height 64.25 inches 5'4.25" Weight 256.25 lb BMI (Body Mass Index) 43.6 kg/m2 07/14/2020 11:29am BP Systolic 100 mmHg BP Diastolic 60 mmHg Height 64.25 inches 5'4.25" Weight 254.00 lb BMI (Body Mass Index) 43.3 kg/m2 Results Test Acquired Date Facility Test Result H/L Range Note Laboratory test finding 12/18/2020 [facility] [address] [place] [address] [phone] Erythrocyte Sedimentation Rate 49 mm/hr High 0 [...] 0-19 2 Landy Titer & Pattern 12/18/2020 [facility] nter [address] [place] [address] [phone] Landy (Hep2) Negative Normal . 3 1 VITAMIN B12 NORMAL RANGE NORMAL 247 - 911 PG/ML INDETERMINATE 211 - 246 PG/ML DEFICIENT LESS THAN 211 PG/ML 2 Negative <20 Weak positive 20 - 39 Moderate positive 40 - 59 Strong positive >59 3 Negative <1:80 Borderline 1:80 Positive >1:80 ICAP nomenclature: AC-0 For more information about Hep-2 cell patterns use ANArayoermolly.org, the official website for the International Consensus on Antinuclear Antibody (LANDY) Patterns (ICAP). Performed at: - [facility] [id number] Environmental Education Specialist: Dorinda Garcia MD, Phone: [phone] Performed at: - [facility] [address] [id number] Environmental Education Specialist: Claudia Butterfield MD, Phone: [phone] Procedures Date Code Description Status 07/14/2020 93302 Office/Outpatient Established Mo d MDM 30-39 Min Completed Medical Devices Description No Information Available Encounters Type Date Location Provider Dx Diagnosis Office Visit 07/14/2020 11:20a [facility] 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
--- OUTSIDE RECORDS SUMMARY | 2021-02-14 20:34 | CCD | Continuity of Care Document ---
Author Author Ness MARKHAM [facility] Organization Unknown Address [address] [place] [address] Phone [phone] Care Team Providers Care Licensed Professional Counselor Name Role Phone Carol Tracey ANP AUTM [phone] Rehana Markham AUTM [phone] Problems Description No Information Available Social History [...] by mouth every day prn Yrn Gil [employer] 01/05/2016 Tums 500mg Chewtabs as needed KYLE Florez 06/13/2015 Mirena 20mcg/24HR IUD Unknown 05/23/2015 Xarelto 20mg Tablets Take 1 Tablet By Mouth Every Day 30tabs Ratna Portillo M.D. 05/12/19 16 Hyoscyamine Sulfate ER 0.375mg Tablets ER 12HR Take 1 Tablet By Mouth Every 12 Hours as Directed 60tabs Rehana Markham [facility] 2015 Zofran 4mg Tablets 1 by mouth every 6 hrs. as needed nausea 40tabs R19.7 Yrn Gil [facility] 04/04/2015 Bergman Carbonate 300mg Capsules one at bedtime Unknown [...] Immunization Adminstration,1 Vaccine/Tox oid Injection Yrn Gil [facility] 04/15/2018 Immunizations CPT Code Status Date Vaccine Lot # U-Flu Given 04/14/2020 Influenza,Unspecified 65224 Given 04/15/2018 Adacel- Tetanus Diphtheria P ertussis [id number] Refused 01/23/2018 Influenza Virus Vaccine, Quadrivalent (Cciiv4), Derived From Cell [id number] Refused 01/13/2017 Influenza Vaccin e Quadrivalent Preser/Antibiotic Free Im Use [id number] Refused 01/13/2017 Influenza Vaccin e Quadrivalent Preser/Antibiotic [...] H/L Range Note Laboratory test finding 12/18/2020 [facility] [address] [place] [address] [phone] Erythrocyte Sedimentation Rate 49 mm/hr High 0 [...] 0-19 2 Landy Titer & Pattern 12/18/2020 [facility] nter [address] [place] [address] [phone] Landy (Hep2) Negative Normal . 3 1 [...] Antibody (LANDY) Patterns (ICAP). Performed at: - [facility] [id number] Intelligence Officer: Dorinda Garcia MD, Phone: [phone] Performed at: - [facility] [address] [id number] Intelligence Officer: Claudia Butterfield MD, Phone: [phone] Procedures Date Code Description Status 12/22/2020 44856 Office/Outpatient Established Mo d MDM 30-39 Min Completed 07/14/2020 17376 Office/Outpatient Established Mo d MDM 30-39 Min Completed Medical Devices Description No Information Available Encounters Type Date Location Provider Dx Diagnosis Office Visit 12/22/2020 11:20a [facility], [facility] G89.29 Other chronic pain E55.9 Vitamin D deficiency, unspec ified E78.00 Pure hypercholesterolemia, u nspecified Z86.711 Personal history of pulmonar y embolism Z79.01 assisted (current) use of a nticoagulants F34.1 Dysthymic disorder Office Visit 07/14/2020 11:20a [facility]CKAMERON Guidry JR K58.0 Irritable bowel syndrome wit h diarrhea E55.9 Vitamin D deficiency, unspec ified E78.00 Pure hypercholesterolemia, u nspecified F34.1 Dysthymic disorder M94.0 Chondrocostal junction syndr ome [Tietze] E66.01 Morbid (severe) obesity due to excess calories Z68.41 Body mass index [BMI] 40.0-4 4.9, adult Z86.711 Personal history of pulmonar y embolism 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 Assessments Date Code Description Provider 12/22/2020 G89.29 Other chronic pain Rehana Markham , [facility] 12/22/2020 E55.9 Vitamin D deficiency, unspecifie d Rehana Markham, [facility] 12/22/2020 E78.00 Pure hypercholesterolemia, unspe cified Rehana Markham, [facility] 12/22/2020 Z86.711 Personal history of pulmonary em bolism Rehana Moralesra, KYLE 12/22/2020 Z79.01 assisted (current) use of antic oagulants Rehana KYLE Markham 12/22/2020 F34.1 Dysthymic disorder Rehana Markham KYLE 07/14/2020 K58.0 Irritable bowel syndrome with di [...] em bolism KAMERON Melo JR 07/14/2020 Z79.01 assisted (current) use of antic oagulants KAMERON Melo JR Plan of Treatment Future Appointment(s):* 07/05/2021 11:00 am - KYLE Elizondo at [facility] 12/22/2020 - KYLE Elizondo* G89.29 Other chronic pain* Comments:* Following with [facility] Rheumatology. CRP remains elevated, RF is negative. Dr. Ramos has ordered a sleep study, but the patient reports that she and Dr. Ramos both be lieve her symptoms are caused by fibromyalgia. * E55.9 Vitamin D deficiency, unspecified* Comments:* Not currently supplemented. Last checked by rheumatology. * E78.00 Pure hypercholesterolemia, unspecified* Comments:* Check lipids in the spring at [facility]. No current pharmacotherapy. Weight loss, diet and exercise discussed and reinforced. * Z86.711 Personal history of pulmonary embolism* Comments:* On Xarelto at this point. 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 Functional Status Description No Information Available Mental Status Description No Information Available Referrals Description No Information Available
--- OUTSIDE RECORDS SUMMARY | 2021-02-14 20:34 | CCD | Continuity of Care Document ---
Author Organization Unknown Address Unknown Phone Unavailable Care Team Providers Care Allergy Physician Name Role Phone Carol Tracey AUTM [phone] Rehana Hall AUTM [phone] Problems Description No Information Available Social History [...] 12 Hours as Directed 60tabs Rehana Hall, [facility] 2015 Zofran 4mg Tablets 1 by mouth every 6 hrs. as needed nausea 40tabs R19.7 Yrn Gil, [facility] 04/04/2015 [place] Carbonate 300mg Capsules one at bedtime Unknown [...] Immunization Adminstration,1 Vaccine/Tox oid Injection Yrn Gil, [facility] 04/15/2018 Immunizations CPT Code Status Date Vaccine Lot # U-Flu Given 04/14/2020 Influenza,Unspecified 15913 Given 04/15/2018 Adacel- Tetanus Diphtheria P ertussis (Age64 & Under) [id number] Refused 01/23/2018 Influenza Virus Vaccine, Quadrivalent (Cciiv4), Derived From Cell [id number] Refused 01/13/2017 Influenza Vaccin e Quadrivalent Preser/Antibiotic Free Im Use [id number] Refused 01/13/2017 Influenza Vaccin e Quadrivalent Preser/Antibiotic [...] H/L Range Note Laboratory test finding 12/18/[address] [address] [phone] Erythrocyte Sedimentation Rate 49 mm/hr High 0 [...] Reactive Protein Quantitativ 1.29 mg/dL High 0.00-0.30 1 VITAMIN B12 NORMAL RANGE NORMAL 247 - 911 PG/ML INDETERMINATE 211 - 246 PG/ML DEFICIENT LESS THAN 211 PG/ML Procedures Date Code Description Status 07/14/2020 53699 Office/Outpatient Established Mo d MDM 30-39 Min Completed Medical Devices Description No Information Available Encounters Type Date Location Provider Dx Diagnosis Office Visit 07/14/2020 11:20a [facility] 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 07/14/2020 - KAMERON Melo JR* K58.0 Irritable bowel syndrome with diarrhea* Comments:* Mostly stable at this time, continue diet and exercise, medications reviewed * E55.9 Vitamin D deficiency, unspecified* Comments:* Continues on supplementation at this time * E78.00 Pure hypercholesterolemia, unspecified* Comments:* reviewed diet and exercise recommendations * F34.1 Dysthymic disorder* Comments:* Follows with psych at [place], medications reviewed and reconciled in the EMR. [...] embolism* Comments:* Continues on Xarelto * Z79.01 custodial (current) use of anticoagulants* Comments:* No active signs of bleeding Functional Status Description No Information Available Mental Status Description No Information Available Referrals Description No Information Available
--- OUTSIDE RECORDS SUMMARY | 2021-02-14 20:35 | CCD ---
Author Author [facility] Organization [facility] Address Unknown Phone Unavailable Care Team Providers Care Residential Care Facility Manager Name Role Phone Maring, Wang PA Unavailable Unavailable Maring, Wang PA Unavailable Unavailable Maring, Wang PA Unavailable Unavailable Maring, Wang PA Unavailable Unavailable Maring, Wang PA Unavailable Unavailable Maring, Wang PA Unavailable Unavailable Maring, Wang PA Unavailable Unavailable Maring, Wang PA Unavailable Unavailable Maring, Wang PA Unavailable Unavailable Maring, Wang PA Unavailable Unavailable Maring, Wang PA Unavailable Unavailable Maring, Wang PA Unavailable Unavailable Maring, Wang PA Unavailable Unavailable Maring, Wang PA Unavailable Unavailable Maring, Wang PA Unavailable Unavailable Maring, Wang PA Unavailable Unavailable Isabel, Rehana MACHINE LACER Unavailable Unavailable Isabel, Rehana MACHINE LACER Unavailable Unavailable Isabel, Rehana MACHINE LACER Unavailable Unavailable Isabel, Rehana MACHINE LACER Unavailable Unavailable Isabel, Rehana MACHINE LACER Unavailable Unavailable Isabel, Rehana MACHINE LACER Unavailable Unavailable Isabel, Rehana MACHINE LACER Unavailable Unavailable Isabel, Rehana MACHINE LACER Unavailable Unavailable Isabel, Rehana MACHINE LACER Unavailable Unavailable Isabel, Rehana MACHINE LACER Unavailable Unavailable Isabel, Rehana MACHINE LACER Unavailable Unavailable Isabel, Rehana MACHINE LACER Unavailable Unavailable Isabel, Rehana MACHINE LACER Unavailable Unavailable Isabel, Rehana MACHINE LACER Unavailable Unavailable Isabel, Rehana MACHINE LACER Unavailable Unavailable Isabel, Rehana MACHINE LACER Unavailable Unavailable Isabel, Rehana MACHINE LACER Unavailable Unavailable Isabel, Rehana MACHINE LACER Unavailable Unavailable Isabel, Rehana MACHINE LACER Unavailable Unavailable Isabel, Rehana MACHINE LACER Unavailable Unavailable Isabel, Rehana MACHINE LACER Unavailable Unavailable Isabel, Rehana MACHINE LACER Unavailable Unavailable Isabel, Rehana MACHINE LACER Unavailable Unavailable Isabel, Rehana MACHINE LACER Unavailable Unavailable Isabel, Rehana MACHINE LACER Unavailable Unavailable Isabel, Rehana MACHINE LACER Unavailable Unavailable Isabel, Rehana MACHINE LACER Unavailable Unavailable Isabel, Rehana MACHINE LACER Unavailable Unavailable Isabel, Rehana MACHINE LACER Unavailable Unavailable Isabel, Rehana MACHINE LACER Unavailable Unavailable Isabel, Rehana MACHINE LACER Unavailable Unavailable Isabel, Rehana MACHINE LACER Unavailable Unavailable Isabel, Rehana MACHINE LACER Unavailable Unavailable Isabel, Rehana MACHINE LACER Unavailable Unavailable Isabel, Rehana MACHINE LACER Unavailable Unavailable AVIS KERN MD Unavailable Unavailable AVIS KERN MD Unavailable Unavailable AVIS KERN MD Unavailable Unavailable CHROSTAVIS NOVA MD Unavailable Unavailable CHROSTAVIS NOVA MD Unavailable Unavailable CHROSTAVIS NOVA MD Unavailable Unavailable CHROSTAVIS NOVA MD Unavailable Unavailable CHRAVIS FRENCH MD Unavailable Unavailable ADOSTAVIS NOVA MD Unavailable Unavailable CHROSTAVIS NOVA MD Unavailable Unavailable CHROSTAVIS NOVA MD Unavailable Unavailable CHROSTAVIS NOVA MD Unavailable Unavailable AVIS KERN MD Unavailable Unavailable CHRAVIS FRENCH MD Unavailable Unavailable AVIS KERN MD Unavailable Unavailable AVIS KERN MD Unavailable Unavailable CHRAVIS FRENCH MD Unavailable Unavailable CHRAVIS FRENCH MD Unavailable Unavailable CHRAVIS FRENCH MD Unavailable Unavailable CHROSTAVIS NOVA MD Unavailable Unavailable CHROSTAVIS NOVA MD Unavailable Unavailable CHROSTAVIS NOVA MD Unavailable Unavailable CHROSTAVIS NOVA MD Unavailable Unavailable CHROSTAVIS NOVA MD Unavailable Unavailable CHROSTAVIS NOVA MD Unavailable Unavailable CHROSTAVIS NOVA MD Unavailable Unavailable CHROSTAVIS NOVA MD Unavailable Unavailable CHROSTAVIS NOVA MD Unavailable Unavailable CHROSTAVIS NOVA MD Unavailable Unavailable CHROSTAVIS NOVA MD Unavailable Unavailable CHROSTAVIS NOVA MD Unavailable Unavailable CHROSTAVIS NOVA MD Unavailable Unavailable CHROSTAVIS NOVA MD Unavailable Unavailable CHROSTAVIS NOVA MD Unavailable Unavailable CHROSTAVIS NOVA MD Unavailable Unavailable CHROSTAVIS NOVA MD Unavailable Unavailable CHRAVIS FRENCH MD Unavailable Unavailable CHRAVIS FRENCH MD Unavailable Unavailable CHRAVIS FRENCH MD Unavailable Unavailable LAROCK, Dylan NEAL GOLF COURSE EQUIPMENT OPERATOR Unavailable Unavailable LAROCK, Dylan NEAL GOLF COURSE EQUIPMENT OPERATOR Unavailable Unavailable LAROCK, Dylan NEAL GOLF COURSE EQUIPMENT OPERATOR Unavailable Unavailable LAROCK, Dylan NEAL GOLF COURSE EQUIPMENT OPERATOR Unavailable Unavailable LAROCK, Dylan NEAL GOLF COURSE EQUIPMENT OPERATOR Unavailable Unavailable LAROCK, Dylan NEAL GOLF COURSE EQUIPMENT OPERATOR Unavailable Unavailable LAROCK, Dylan NEAL GOLF COURSE EQUIPMENT OPERATOR Unavailable Unavailable LAROCK, Dylan NEAL GOLF COURSE EQUIPMENT OPERATOR Unavailable Unavailable LAROCK, Dylan NEAL GOLF COURSE EQUIPMENT OPERATOR Unavailable Unavailable LAROCK, Dylan NEAL GOLF COURSE EQUIPMENT OPERATOR Unavailable Unavailable LAROCK, Dylan NEAL GOLF COURSE EQUIPMENT OPERATOR Unavailable Unavailable LAROCK, Dylan NEAL GOLF COURSE EQUIPMENT OPERATOR Unavailable Unavailable LAROCK, Dylan NEAL GOLF COURSE EQUIPMENT OPERATOR Unavailable Unavailable LAROCK, Dylan NEAL GOLF COURSE EQUIPMENT OPERATOR Unavailable Unavailable LAROCK, Dylan NEAL GOLF COURSE EQUIPMENT OPERATOR Unavailable Unavailable LAROCK, Dylna NEAL GOLF COURSE EQUIPMENT OPERATOR Unavailable Unavailable LAROCK, Dylan NEAL GOLF COURSE EQUIPMENT OPERATOR Unavailable Unavailable LAROCK, Dylan NEAL GOLF COURSE EQUIPMENT OPERATOR Unavailable Unavailable LAROCK, Dylan NEAL GOLF COURSE EQUIPMENT OPERATOR Unavailable Unavailable LAROCK, Dylan NEAL GOLF COURSE EQUIPMENT OPERATOR Unavailable Unavailable LAROCK, Dylan NEAL GOLF COURSE EQUIPMENT OPERATOR Unavailable Unavailable LAROCK, Dylan NEAL GOLF COURSE EQUIPMENT OPERATOR Unavailable Unavailable Feola, T Guillermina PA Unavailable Unavailable Feola, T Guillermina PA Unavailable Unavailable Feola, T Guillermina PA Unavailable Unavailable Feola, T Guillermina PA Unavailable Unavailable Feola, T Guillermina PA Unavailable Unavailable Feola, T Guillermina PA Unavailable Unavailable Feola, T Guillermina PA Unavailable Unavailable Feola, T Guillermina PA Unavailable Unavailable Feola, T Guillermina PA Unavailable Unavailable Feola, T Guillermina PA Unavailable Unavailable Feola, T Guillermina PA Unavailable Unavailable Feola, T Guillermina PA Unavailable Unavailable Feola, T Guillermina PA Unavailable Unavailable Feola, T Guillermina PA Unavailable Unavailable Feola, T Guillermian PA Unavailable Unavailable Feola, T Guillermina PA Unavailable Unavailable Feola, T Guillermina PA Unavailable Unavailable Feola, T Guillermina PA Unavailable Unavailable Feola, T Guillermina PA Unavailable Unavailable Feola, T Guillermina PA Unavailable Unavailable Feola, T Guillermina PA Unavailable Unavailable Feola, T Guillermina PA Unavailable Unavailable Feola, T Guillermina PA Unavailable Unavailable Feola, T Guillermina PA Unavailable Unavailable Feola, T Guillermina PA Unavailable Unavailable Feola, T Guillermina PA Unavailable Unavailable Feola, T Guillermina PA Unavailable Unavailable Feola, T Guillermina PA Unavailable Unavailable Feola, T Guillermina PA Unavailable Unavailable Feola, T Guillermina PA Unavailable Unavailable Feola, T Guillermina PA Unavailable Unavailable Feola, T Guillermina PA Unavailable Unavailable Feola, T Guillermina PA Unavailable Unavailable Feola, T Guillermina PA Unavailable Unavailable Feola, T Guillermina PA Unavailable Unavailable Feola, T Guillermina PA Unavailable Unavailable Feola, T Guillermina PA Unavailable Unavailable Feola, T Guillermina PA Unavailable Unavailable Feola, T Guillermina PA Unavailable Unavailable Feola, T Guillermina PA Unavailable Unavailable Feola, T Guillermina PA Unavailable Unavailable Amparo Marquez MD Unavailable Unavailable Amparo Marquez MD Unavailable Unavailable Amparo Marquez MD Unavailable Unavailable Amparo Marquez MD Unavailable Unavailable Amparo Marquez MD Unavailable Unavailable Amparo Marquez MD Unavailable Unavailable Amparo Marquez MD Unavailable Unavailable Amparo Marquez MD Unavailable Unavailable Amparo Marquez MD Unavailable Unavailable Amparo Marquez MD Unavailable Unavailable Amparo Marquez MD Unavailable Unavailable Amparo Marquez MD Unavailable Unavailable Amparo Marquez MD Unavailable Unavailable Amparo Marquez MD Unavailable Unavailable Amparo Marquez MD Unavailable Unavailable Amparo Marquez MD Unavailable Unavailable Amparo Marquez MD Unavailable Unavailable Amparo Marquez MD Unavailable Unavailable Amparo Marquez MD Unavailable Unavailable Amparo Marquez MD Unavailable Unavailable Amparo Marquez MD Unavailable Unavailable Amparo Marquez MD Unavailable Unavailable Amparo Marquez MD Unavailable Unavailable Amparo Marquez MD Unavailable Unavailable Amparo Marquez MD Unavailable Unavailable Amparo Marquez MD Unavailable Unavailable Amparo Marquez MD Unavailable Unavailable Amparo Marquez MD Unavailable Unavailable Amparo Marquez MD Unavailable Unavailable Amparo Marquez MD Unavailable Unavailable Amparo Marquez MD Unavailable Unavailable Amparo Marquez MD Unavailable Unavailable Amparo Marquez MD Unavailable Unavailable Amparo Marquez MD Unavailable Unavailable Amparo Marquez MD Unavailable Unavailable Amparo Marquez MD Unavailable Unavailable AliAmparo MD Unavailable Unavailable Amparo Marquez MD Unavailable Unavailable Amparo Marquez MD Unavailable Unavailable AliAmparo MD Unavailable Unavailable AliAmparo MD Unavailable Unavailable AliAmparo MD Unavailable Unavailable AliAmparo MD Unavailable Unavailable AliAmparo MD Unavailable Unavailable AliAmparo MD Unavailable Unavailable AliAmparo MD Unavailable Unavailable AliAmparo MD Unavailable Unavailable AliAmparo MD Unavailable Unavailable AliAmparo MD Unavailable Unavailable AliAmparo MD Unavailable Unavailable AliAmparo MD Unavailable Unavailable PICKERAL JR, J KAVON PA-C Unavailable Unavailable PICKERAL JR, J KAVON PA-C Unavailable Unavailable PICKERAL JR, J KAVON PA-C Unavailable Unavailable PICKERAL JR, J KAVON PA-C Unavailable Unavailable PICKERAL JR, J KAVON PA-C Unavailable Unavailable PICKERAL JR, J KAVON PA-C Unavailable Unavailable PICKERAL JR, J KAVON PA-C Unavailable Unavailable PICKERAL JR, J KAVON PA-C Unavailable Unavailable PICKERAL JR, J KAVON PA-C Unavailable Unavailable PICKERAL JR, J KAVON PA-C Unavailable Unavailable PICKERAL JR, J KAVON PA-C Unavailable Unavailable PICKERAL JR, J KAVON PA-C Unavailable Unavailable PICKERAL JR, J KAVON PA-C Unavailable Unavailable PICKERAL JR, J KAVON PA-C Unavailable Unavailable PICKERAL JR, J KAVON PA-C Unavailable Unavailable PICKERAL JR, J KAVON PA-C Unavailable Unavailable PICKERAL JR, J KAVON PA-C Unavailable Unavailable PICKERAL JR, J KAVON PA-C Unavailable Unavailable PICKERAL JR, J KAVON PA-C Unavailable Unavailable PICKERAL JR, J KAVON PA-C Unavailable Unavailable PICKERAL JR, J KAVON PA-C Unavailable Unavailable PICKERAL JR, J KAVON PA-C Unavailable Unavailable PICKERAL JR, J KAVON PA-C Unavailable Unavailable PICKERAL JR, J KAVON PA-C Unavailable Unavailable PICKERAL JR, J KAVON PA-C Unavailable Unavailable PICKERAL JR, J KAVON PA-C Unavailable Unavailable PICKERAL JR, J KAVON PA-C Unavailable Unavailable PhanToya Yanique PA-C Unavailable Unavailable PhanToya Yanique PA-C Unavailable Unavailable PhanToya Yanique PA-C Unavailable Unavailable PhanToya Yanique PA-C Unavailable Unavailable PhanToya Yanique PA-C Unavailable Unavailable PhanToya Yanique PA-C Unavailable Unavailable PhanToya Yanique PA-C Unavailable Unavailable Phan, Toya Yanique PA-C Unavailable Unavailable Phan, Toya Yanique PA-C Unavailable Unavailable Phan, Toya Yanique PA-C Unavailable Unavailable Phan, Toya Yanique PA-C Unavailable Unavailable Phan, Toya Yanique PA-C Unavailable Unavailable Phan, Toya Yanique PA-C Unavailable Unavailable Phan, Toya Yanique PA-C Unavailable Unavailable Phan, Toya Yanique PA-C Unavailable Unavailable Phan, Toya Yanique PA-C Unavailable Unavailable Phan, Toya Yanique PA-C Unavailable Unavailable Phan, Toya Yanique PA-C Unavailable Unavailable Phan, Toya Yaniuqe PA-C Unavailable Unavailable Phan, Toya Yanique PA-C Unavailable Unavailable Phan, Toya Yanique PA-C Unavailable Unavailable Phan, Toya Yanique PA-C Unavailable Unavailable Phan, Toya Yanique PA-C Unavailable Unavailable Phan, Toya Yanique PA-C Unavailable Unavailable Phan, Toya Yanique PA-C Unavailable Unavailable DESJARLAIS, AWILDA GOLF COURSE EQUIPMENT OPERATOR Unavailable Unavailable DESJARLAIS, AWILDA GOLF COURSE EQUIPMENT OPERATOR Unavailable Unavailable DESJARLAIS, AWILDA GOLF COURSE EQUIPMENT OPERATOR Unavailable Unavailable DESJARLAIS, AWILDA GOLF COURSE EQUIPMENT OPERATOR Unavailable Unavailable DESJARLAIS, AWILDA GOLF COURSE EQUIPMENT OPERATOR Unavailable Unavailable DESJARLAIS, AWILDA GOLF COURSE EQUIPMENT OPERATOR Unavailable Unavailable DESJARLAIS, AWILDA GOLF COURSE EQUIPMENT OPERATOR Unavailable Unavailable DESJARLAIS, AWILDA GOLF COURSE EQUIPMENT OPERATOR Unavailable Unavailable DESJARLAIS, AWILDA GOLF COURSE EQUIPMENT OPERATOR Unavailable Unavailable DESJARLAIS, AWILDA GOLF COURSE EQUIPMENT OPERATOR Unavailable Unavailable Re-disclosure Warning The records that you are about to access may contain information from federally-assisted alcohol or drug abuse programs. If such information is present, then the following federally mandated warning applies: This information has been disclosed to you from records protected by federal confidentiality rules (42 CFR part 2). The federal rules prohibit you from making any further disclosure of this information unless further disclosure is expressly permitted by the written consent of the person to whom it pertains or as otherwise permitted by 42 CFR part 2. A general authorization for the release of medical or other information is NOT sufficient for this purpose. The Federal rules restrict any use of the information to criminally investigate or prosecute any alcohol or drug abuse patient.The records that you are about to access may contain highly sensitive health information, the redisclosure of which is protected by Article 27-F of the [facility] Public Health law. If you continue you may have access to information: Regarding HIV / AIDS; Provided by facilities licensed or operated by the [facility] Office of Mental Health; or Provided by the [facility] Office for People With Developmental Disabilities. If such information is present, then the following [facility] mandated warning applies: This information has been disclosed to you from confidential records which are protected by state law. State law prohibits you from making any further disclosure of this information without the specific written consent of the person to whom it pertains, or as otherwise permitted by law. Any unauthorized further disclosure in violation of state law may result in a fine or usp sentence or both. A general authorization for the release of medical or other information is NOT sufficient authorization for further disc losure. Family History Family Member Name Family Member Gender Family Member Status Date o f Status Description Data Source(s) Unknown Unknown Problem [facility] ([facility]) Encounters Encounter Providers Location Date Indications Data Source(s ) Outpatient Attender: Yanique Phan PA-C 01/06 12:40:35 PM EDT - 01/29/2021 01:50:18 PM EDT [facility] ([facility] ) Outpatient Attender: Wang MELO 01/28/20 08:31:49 AM EDT - 01/27/2021 08:58:46 AM EDT [facility] ([facility] ) Outpatient Attender: AWILDA JOHNSON NP 01/24/2021 11: 00:00 AM [facility] Outpatient Attender: Rehana Mcclelland 11:20:00 AM EDT [facility] ([facility] ) Outpatient Attender: AWILDA JOHNSON NP 12/21/2020 01: 00:00 PM [facility] Outpatient Attender: AWILDA JOHNSON NP 11/30/2020 04: 40:00 PM [facility] Outpatient Attender: Amparo Marquez MD Main office - [place] 10/26/2020 02:30:00 PM EDT [facility] ([facility]) Outpatient Attender: AVIS KERN MD Main Office 10/19/2020 02:15:00 PM EDT [facility] ([facility]) Outpatient Attender: AWILDA JOHNSON NP 10/05/2020 02: 20:00 PM [facility] Outpatient Attender: AWILDA JOHNSON GOLF COURSE EQUIPMENT OPERATOR 08/25/2020 01: 20:00 PM [facility] Outpatient Attender: AWILDA JOHNSON GOLF COURSE EQUIPMENT OPERATOR 08/02/2020 04: 00:00 PM [facility] Outpatient Attender: KAVON MASTERSON JR Sascha Mcclelland 0 07/14/2020 11:20:00 AM EDT [facility] ([facility] ) Outpatient Attender: AWILDA JOHNSON NP 06/14/2020 08: 28:00 AM [facility] Outpatient Attender: ÁNGEL MUNGUIA NP 05/09 12:32:17 PM [facility] - 06/01/2020 01:26:51 PM EST [facility] ([facility] ) Outpatient Attender: AWILDA JOHNSON NP 05/26/2020 04: 40:00 PM [facility] Outpatient Attender: Guillermina MELO 021 04:42:41 PM [facility] - 05/22/2020 05:29:27 PM EST [facility] ([facility] ) Outpatient Attender: Guillermina MELO 021 04:49:56 PM [facility] - 05/17/2020 05:44:24 PM EST [facility] ([facility] ) Outpatient Attender: AWILDA JOHNSON NP 04/28/2020 04: 40:00 PM [facility] Outpatient Attender: AVIS KERN MD Main Office 04/20/2020 01:15:00 PM EST [facility] ([facility]) Outpatient Attender: AWILDA JOHNSON NP 03/16/2020 04: 40:00 PM [facility] Outpatient Attender: AWILDA JOHNSON NP 01/28/2020 04: 40:00 PM [facility] Outpatient Attender: Amparo Marquez MD Main office [facility] 01/28/2020 09:30:00 AM EDT [facility] ([facility]) Outpatient Attender: AVIS KERN MD Main Office 01/27/2020 10:15:00 AM EDT [facility] ([facility]) Immunizations Vaccine Date Status Description Data Source(s) COVID-19 VACCINE Pfizer 07/09/2020 12:00:00 AM EDT completed [facility] Vaccine Series Complete: YESThis Data wa s Submitted to [facility] Via [employer]. COVID-19 VACCINE Pfizer 06/18/2020 12:00:00 AM EST completed [facility] Vaccine Series Complete: NOThis Data was Submitted to [facility] Via [employer]. This CVX code allows reporting of a vacc ination when formulation is unknown (for example, when recording a Influenza vaccination when noted on a vaccination card) 04/14/2020 09:45:00 AM EST completed [facility]EN T ([facility]) Medications Medication Brand Name Start Date Product Form Dose Route Admi nistrative Instructions Pharmacy Instructions Status Indications Reaction Description Data Source(s) 14 ACTUAT fluticasone furoate 0.1 MG/ACTUAT Dry Powder Inhaler [Arnuity] Arnuity Ellipta 02/08/2020 12:00:00 AM EST RESPIRATORY active [facility] ([facility]) 120 ACTUAT mometasone furoate 0.1 MG/ACTUAT Metered Do se Inhaler [Asmanex] Asmanex HFA 02/01/2020 12:00:00 AM EDT RESPIRATORY compl eted [facility] ([facility]) zonisamide 50 MG Oral Capsule Zonisamide 01/28/2020 12:00:00 AM EDT ORAL active [facility] ([facility] ) Flonase Allergy Relief Flonase Allergy Relief 01/27/2020 12:00:00 AM E DT completed [facility] ([facility] 14 ACTUAT fluticasone furoate 0.1 MG/ACTUAT Dry Powder Inhaler [Arnuity] Arnuity Ellipta 01/27/2020 12:00:00 AM EDT RESPIRATORY complete d [facility] ([facility]) Insurance Providers Payer name Policy type / Coverage type Policy ID Covered republican ID Covered republican's relationship to boyer Policy [place] Plan Information SOFIA CROSS [id number] [facility] 010/510 [id number] [employer] BCBS Health Maintenance Organization (HMO) [id number] BC[place] 010/510 [id number] BC/BS Of [facility] [id number] Family Depende nt BS [place] Trad/[place] Commercial [id number] Family Dependent BS [place] Trad/MX Medigap Part B [id number] Family Dependent [id number] BS Luis Alfredo Trad/MX Commercial [id number] Family Dependent [id number] [place] 010/510 [id number] [employer] Commercial [employer] Co. [id number] Spouse [id number] [employer] Commercial Insurance Co. [id number] Spouse [id number] [employer] [place] Commercial [id number] Family Dependent [id number] BCBS .[id number] Blue Cross/Bl ue Shield ..[id number] [place] .[id number] Commercial Insur ance Co. .[id number] [employer] [id number] SPO [id number] [employer] [place] Commercial [id number] Family Dependent [id number] [employer] [place] Commercial [id number] Family Dependent [id number] SELF PAY ONLY 0 SP 0 [facility] [id number] Family Dependent [id number] [facility] [email or web address] [id number] Family Dependent [id number] O UNAVAILABLE UNAVAILA BLE BCBS [place] WATN PPO 302/307 [id number] [place] BCBS B [id number] P D [id number] BCBS [place] WATN PPO 302/307 [id number] HU2 [id number] BCBS-[place] Ppo Commercial [id number] Family Dependent BS [place] Commercial [id number] Family Dependent BLUE CROSS BLUE SHIELD-O/P [id number] BCBS [facility] DIV [id number] HU2 [id number] [facility] [id number] HU2 [id number] [facility] [id number] SPO [id number] [facility] [id number] SPO [id number] BCBS [facility] DIV [id number] HU2 [id number] [facility] [id number] SP [id number] [facility] O [id number] S [id number] BCBS [facility] DIV [id number] BCBS [facility] 010/510 [id number] HU2 [id number] [facility] [email or web address] [id number] Dependent [id number] Problems, Conditions, and Diagnoses Code Display Name Description Problem Type Effective Dates Data Source(s) G47.00 Insomnia, unspecified INSOMNIA, UNSPECIFIED Diagnosis 12/21/2020 01:00:00 PM [facility] F43.23 Adjustment disorder with mixed anxiety a nd depressed mood ADJUSTMENT DISORDER WITH MIXED ANXIETY AND DEPRESS Diagnosis 11/30/2020 04:40:00 PM [facility] F90.1 Attention-deficit hyperactivity disorder , predominantly hyperactive type ATTN-DEFCT HYPERACTIVITY DISORDER, PREDOM HYPERACT Diagnosis 04:40:00 PM [facility] F41.1 Generalized anxiety disorder GENERALIZED ANXIETY DISOR FOREIGN Diagnosis 11/30/2020 04:40:00 PM [facility] F90.9 Attention-deficit hyperactivity disorder , unspecified type ATTENTION- DEFICIT HYPERACTIVITY DISORDER, UNSPECIFIED TYPE Diagnosis 10/05 02:20:00 PM [facility] Surgeries/Procedures Procedure Description Date Indications Data Source(s) OFFICE OUTPATIENT VISIT 25 MINUTES 12/22/2020 12:00:00 AM EDT [facility] ([facility]) OFFICE OUTPATIENT VISIT 25 MINUTES 10/26/2020 12:00:00 AM EDT [facility] ([facility] ) BRNCDILAT RSPSE SPMTRY PRE&POST-BRNCDILAT ADMN 021 12:00:00 AM EDT [facility] ([facility] OFFICE OUTPATIENT VISIT 15 MINUTES 10/19/2020 12:00:00 AM EDT [facility] OFFICE OUTPATIENT VISIT 25 MINUTES 07/14/2020 12:00:00 AM EDT [facility] ([facility]) BRNCDILAT RSPSE SPMTRY PRE&POST-BRNCDILAT ADMN 12:00:00 AM EST [facility] ([facility]) PERCUTANEOUS TESTS W/ALLERGENIC EXTRACTS 04/20/2020 12 :00:00 AM EST [facility] ([facility]) NITRIC OXIDE GAS DETERMINATION 04/20/2020 12:0 0:00 AM EST [facility] ([facility]) INTRACUTANEOUS TESTS W/ALLERGENIC EXTRACTS 04/20/2020 12:00:00 AM EST [facility] ([facility]) Results ID Date Data Source [id number] 01/27/2021 08:45:00 AM EDT [facility] Name Value Range Interpretation Code Description Data Fidelina rce(s) Supporting Document(s) SARS-CoV-2 RNA Resp Ql KSENIA+probe NOT DETECTED [facility] This lab was ordered by SAM montoya and reported by SAM Rubalcava. ID Date Data Source [id number] 12/18/2020 08:45:00 AM EDT [facility] ([facility]) Name Value Range Interpretation Code Description Data Fidelina rce(s) Supporting Document(s) Yoselin (Hep2) Laboratory test result [facility] ([facility]) <content>Negative <1:80</content>
<content>Borderline 1:80</content>
<content>Positive >1:80</content>
<content>ICAP nomenclature: AC-0</content>
<content>For more information about Hep-2 cell patterns use</content>
<content>ANApatterns.org, the official website for the</content>
<content>International Consensus on Antinuclear Antibody (YOSELIN)</content>
<content>Patterns (ICAP).</content>
<content>Performed at: - [facility]</content>
<content>[address] [place] [id number]</content>
<content>Av Specialist: Dorinda Garcia MD, Phone: [phone]</content>
<content>Performed at: - [facility]</content>
<content>[address], [place] [id number]</content>
<content>Av Specialist: Claudia Butterfield MD, Phone: [phone]</content>
<content></content> ID Date Data Source [id number] 12/18/2020 08:45:00 AM EDT [facility] ([facility]) Name Value Range Interpretation Code Description Data Fidelina rce(s) Supporting Document(s) Phosphate [Moles/volume] in Serum or Plasma 2.1 mg/dL 2.5-4.9 [facility] ([facility]) Erythrocyte sedimentation rate by Westergren method 49 mm/hr 0-20 [facility] ([facility]) Creatine kinase [Enzymatic activity/volume] in Serum or Plasma 43 U /L 26-192 [facility] ([facility]) Magnesium [Moles/volume] in Serum or Plasma 2.3 mg/dL 1.8-2.4 [facility] Thyrotropin [Units/volume] in Serum or Plasma by Detec tion limit <= 0.05 mIU/L 3.370 uIU/ML 0.358-3.740 [facility] Iron [Mass/volume] in Serum or Plasma 64 ug/dL 50-170 [facility] Calcidiol [Mass/volume] in Serum or Plasma 30.4 ng/mL 30.0-100.0 [facility] Cobalamin (Vitamin B12) [Mass/volume] in Serum or Plasma 432 pg/mL 2 47-911 [facility] VITAMIN B12 NORMAL RANGE NORMAL 247 - 911 PG/ML INDETERMINATE 211 - 246 PG/ML DEFICIENT LESS THAN 211 PG/ML Rheumatoid Factor Quant Laboratory test result [facility] Cyclic citrullinated peptide IgG Ab [Units/volume] in Serum or Plasma 7 units 0-19 [facility] ([facility]) <content>Negative <20</con tent>
<content>Weak positive 20 - 39</content>
<content>Moderate positive 40 - 59</content>
<content>Strong positive >59</content>
<content></content> C reactive protein [Mass/volume] in Serum or Plasma by High sensitivity method 1.29 mg/dL 0.00-0.30 [facility] ([facility] ) ID Date Data Source [id number] 06/02/2020 06:16:00 PM EST [facility] Name Value Range Interpretation Code Description Data Fidelina rce(s) Supporting Document(s) BHD COVID-19 RT-PCR NASAL SWAB Not Detected Not Detected [facility] This test has received Emergency Use Aut horization (EUA). We willcontinue to follow federal and state requirements for COVID-19reporting. This test was developed and its performance characteristicsdetermined by [facility]. It has not been cleared orapproved by the U.S. Food and Drug Administration but has been givenemergency use authorization. Results should be used in conjunctionwith clinical findings and should not form the sole basis for adiagnosis or treatment decision. Methods: SARS-CoV-2 Multiplex RT-PCRAssayA not detected (negative) test result for this test means that SARS-CoV-2 RNA was not present in the specimen above the limit ofdetection. Laboratory test results should always be considered in thecontext of clinical observations and epidemiological data in making afinal diagnosis and patient management decisions. Results will bereported to government agencies as required. ID Date Data Source [id number] 06/01/2020 01:00:00 PM EST [facility] Name Value Range Interpretation Code Description Data Fidelina rce(s) Supporting Document(s) SARS coronavirus 2 RNA [Presence] in Res piratory specimen by KSENIA with probe detection NEGATIVE [facility] This lab was ordered by [facility] and reported by [facility]. ID Date Data Source [id number] 06/01/2020 12:00:00 AM EST [facility] Name Value Range Interpretation Code Description Data Fidelina rce(s) Supporting Document(s) Carestart Rapid COVID Antigen Test Negative [facility] This lab was reported by [facility] Lovely thomas. ID Date Data Source [id number] 05/17/2020 12:00:00 AM EST [facility] Name Value Range Interpretation Code Description Data Fidelina rce(s) Supporting Document(s) SARS coronavirus 2 RNA [Presence] in Res piratory specimen by KSENIA with probe detection NEGATIVE [facility] This lab was ordered by [facility] and reported by [facility]. ID Date Data Source [id number] 05/17/2020 12:00:00 AM EST [facility] Name Value Range Interpretation Code Description Data Fidelina rce(s) Supporting Document(s) Carestart Rapid COVID Antigen Test Negative [facility] This lab was reported by [facility] martha. ID Date Data Source [id number] 04/12/2020 12:24:00 PM EST [facility] ([facility]) Name Value Range Interpretation Code Description Data Fidelina rce(s) Supporting Document(s) Phosphate [Moles/volume] in Serum or Plasma 2.2 mg/dL 2.5-4.9 [facility] Magnesium [Moles/volume] in Serum or Plasma 2.2 mg/dL 1.8-2.4 [facility] ([facility]) Creatine kinase [Enzymatic activity/volume] in Serum or Plasma 63 U /L 26-192 [facility] Cobalamin (Vitamin B12) [Mass/volume] in Serum or Plasma 410 pg/mL 2 47-911 [facility] ([facility]) VITAMIN B12 NORMAL RANGE NORMAL 247 - 911 PG/ML INDETERMINATE 211 - 246 PG/ML DEFICIENT LESS THAN 211 PG/ML Calcidiol [Mass/volume] in Serum or Plasma 47.0 ng/mL 30.0-100.0 [facility]) ID Date Data Source [id number] 01/03/2020 08:50:00 PM EDT [facility]) Name Value Range Interpretation Code Description Data [facility] rce(s) Supporting Document(s) Natriuretic peptide.B prohormone N-Terminal [Mass/volu me] in Serum or Plasma 10 pg/mL [facility] ) Thyroxine (T4) Ab [Units/volume] in Serum 8.9 ug/dL 4.5-12.0 [facility] ([facility]) Thyrotropin [Units/volume] in Serum or Plasma by Detec tion limit <= 0.05 mIU/L 2.670 uIU/ML 0.358-3.740 [facility] ) HCG Serum Qualitative Laboratory test result [facility] Bacteria identified in Blood by Culture Laboratory test result [facility]) No growth after 72 hours . All specimens observed for 5 days. Results final at that time. No growth after 48 hours . All specimens observed for 5 days. Results final at that time. No growth after 24 hours . All specimens observed for 5 days. Results final at that time. NO GROWTH AFTER 5 DAYS ID Date Data Source [id number] 01/03/2020 08:50:00 PM EDT [facility] ([facility]) Name Value Range Interpretation Code Description Data Fidelina e(s) Supporting Document(s) Glucose, Fasting 88 mg/dL 70-100 [facility] ([facility]) Blood Urea Nitrogen 9 mg/dL 7-18 [facility] ([facility]) Creatinine For GFR 0.90 mg/dL 0.55-1.30 [facility] ([facility]) Glomerular Filtration Rate Laboratory test result [facility] ([facility]) <content>Units are mL/min/1.73 m2</content>
<content></content>
<content>Chronic Kidney Disease Staging per NKF:</content>
<content></content>
<content>Stage I & II GFR >=60 Normal to Mildly Decreased</content>
<content>Stage III GFR 30- 59 Moderately Decreased</content>
<content>Stage IV GFR 15-29 Severely Decreased</content>
<content>Stage V GFR <15 Very Little GFR Left</content>
<content>ESRD GFR <15 on INSTRUCTIONAL DESIGN TECHNOLOGIST</content>
<content></content> Sodium Level 137 meq/L 136-145 [facility] ([facility]) Potassium Serum 4.0 meq/L 3.5-5.1 [facility] ([facility]) Carbon Dioxide Level 24 meq/L 21-32 [facility] ([facility]) Anion Gap 6 meq/L 8-16 [facility] Chloride Level 107 meq/L 98-107 [facility] ([facility]) Calcium Level 9.2 mg/dL 8.5-10.1 [facility] ([facility]) ID Date Data Source [id number] 01/03/2020 08:50:00 PM EDT [facility] ([facility]) Name Value Range Interpretation Code Description Data Fidelina rc(s) Supporting Document(s) Alt/SGPT 23 U/L 12-78 [facility] Ast/Sgot 11 U/L 7-37 [facility]) Bilirubin,Direct Laboratory test result 0.0-0.2 [facility] ([facility]) Alkaline Phosphatase 152 U/L 45-117 [facility] ([facility]) Bilirubin,Total 0.2 mg/dL 0.2-1.0 [facility] ([facility]) Total Protein 7.5 GM/DL 6.4-8.2 [facility] ([facility]) Albumin 3.2 GM/DL 3.2-5.2 [facility]) Albumin/Globulin Ratio 0.7 1.2-2.2 [facility] ([facility]) ID Date Data Source [id number] 01/03/2020 08:50:00 PM EDT [facility] ([facility]) Name Value Range Interpretation Code Description Data Fidelina rce(s) Supporting Document(s) CPK Creatine Phosphokinase 63 U/L 26-192 [facility] ([facility]) MB/CK Relative Index 1.59 [facility] ([facility]) <content>DIAGNOSIS CRITERIA</content>
<content>MMB ng/ml Relative Index (RI)</content>
<content>NON-AMI < or = 5 N/A</content>
<content>GARSIA ZONE > 5 < or = 4</content>
<content>AMI > 5 > 4</content>
<content></content> Troponin I Laboratory test result [facility] ([facility]) <content>Troponin I Reference Interval f or Siemens [place] LOCI:</content>
<content></content>
<content>99th Percentile= 0.00-0.045 ng/ml</content>
<content></content>
<content>Risk Stratification:</content>
<content><= 0.10 ng/ml Decreased Risk for Adverse Clinical</content>
<content>Events.</content>
<content>0.10-1.50 ng/ml Increased Risk for Adverse Clinical</content>
<content>Events. Evaluation of additional</content>
<content>criterion and/or repeat testing in 2-6</content>
<content>hours is suggested to rule out myocardial</content>
<content>damage.</content>
<content>>= 1.50 ng/ml Indicative of Myocardial Injury.</content>
<content></content> CK-MB Value Mass Laboratory test result [facility] ([facility]) ID Date Data Source [id number] 01/03/2020 08:50:00 PM EDT [facility] ([facility]) Name Value Range Interpretation Code Description Data Fidelina rce(s) Supporting Document(s) Inr 1.13 [facility] THERAPUTIC HUMAN INR VALUES INDICATIONS NORMAL RANGES PROPHYLAXIS/TREATMENT OF: VENOUS THROMBOSIS 2.0-3.0 PULMONARY EMBOLISM 2.0-3.0 PREVENTION OF SYSTEMIC EMBOLISM FROM: TISSUE HEART VALVES 2.0-3.0 ACUTE MYOCARDIAL INFARCTION 2.0-3.0 VALVULAR HEART DISEASE 2.0-3.0 ATRIAL FIBRILLATION 2.0-3.0 MECHANICAL VALVES(HIGH RISK) 2.5-3.5 RECURRENT MYOCARDIAL INFARCTION 2.5-3.5 Prothrombin Time 14.7 s 12.5-14.3 [facility] ([facility]) ID Date Data Source [id number] 01/03/2020 08:50:00 PM EDT [facility] ([facility]) Name Value Range Interpretation Code Description Data Fidelina rce(s) Supporting Document(s) White Blood Count 8.9 10 4.0-10.0 [facility] ([facility]) Hemoglobin 13.1 g/dL 12.0-15.5 [facility] Hematocrit 39.6 % 36.0-47.0 [facility] Red Blood Count 4.54 10 4.00-5.40 [facility] Mean Corpuscular Hemoglobin 28.9 pg 27.0-33.0 [place] [facility] ([facility]) Mean Corpuscular HGB Conc 33.1 g/dL 32.0-36.5 [facility] NT ([facility]) Mean Corpuscular Volume 87.2 fl 80.0-96.0 [facility] Red Cell Distribution Width 13.2 % 11.5-14.5 [place] [facility] Platelet Count, Automated 411 10 150-450 [facility] NT ([facility]) Neutrophils % 66.4 % 36.0-66.0 [facility] ([facility]) [place] % 5.8 % 0.0-5.0 [facility]) Lymph % 26.2 % 24.0-44.0 [facility]) Eos % 0.9 % 0.0-3.0 [facility] Baso % 0.4 % 0.0-1.0 [facility]) Immature Granulocyte % 0.3 % 0-3.0 [facility] ([facility]) Neutrophils # 5.9 10 1.5-8.5 [facility] ([facility]) Nucleated Red Blood Cell % 0.0 % 0-0 [facility] ([facility]) [place] # 0.5 10 0.0-0.8 [facility] Lymph # 2.3 10 1.5-5.0 [facility] Eos # 0.1 10 0.0-0.5 [facility] Baso # 0.0 10 0.0-0.2 [facility] ID Date Data Source [id number] 01/03/2020 08:45:00 PM EDT [facility] ([facility]) Name Value Range Interpretation Code Description Data Fidelina rce(s) Supporting Document(s) Blood Culture Laboratory test result [facility] No growth after 72 hours . All specimens observed for 5 days. Results final at that time. No growth after 48 hours . All specimens observed for 5 days. Results final at that time. No growth after 24 hours . All specimens observed for 5 days. Results final at that time. NO GROWTH AFTER 5 DAYS Procedure Social History Code Duration Value Status Description Data Source(s ) Smoking 10/19/2020 12:00:00 AM EDT Patient has never smoked co mpleted Patient has never smoked [facility] ([facility] ) Vital Signs ID Date Data Source UNK Name Value Range Interpretation Code Description Data Source(s) Systolic blood pressure 110 mm[Hg] 110 mm[Hg] M EDENT ([facility]) RT Arm Diastolic blood pressure 80 mm[Hg] 80 mm[Hg] [facility] ([facility]) RT Arm Heart rate 100 /min 100 /min [facility] ([facility]) Body height 64.25 [in_i] 64.25 [in_i] [facility] 5'4.25" Body weight 256.25 [lb_av] 256.25 [lb_av] MED[facility] T ([facility]) Body mass index (BMI) [Ratio] 43.6 kg/m2 43.6 k g/m2 [facility] ([facility]) Body mass index (BMI) [Ratio] 43.1 kg/m2 43.1 k g/m2 [facility] Diastolic blood pressure 76 mm[Hg] 76 mm[Hg] [facility] Body weight 251.12 [lb_av] 251.12 [lb_av] [facility] T ([facility] Body height 64 [in_i] 64 [in_i] [facility] 5'4" Heart rate 128 /min 128 /min [facility] Respiratory rate 20 /min 20 /min [facility] ( [facility]) Systolic blood pressure 108 mm[Hg] 108 mm[Hg] [facility] ([facility] Body height 64.25 [in_i] 64.25 [in_i] [facility] 5'4.25" Diastolic blood pressure 60 mm[Hg] 60 mm[Hg] [facility] ([facility]) Systolic blood pressure 100 mm[Hg] 100 mm[Hg] [facility] ([facility]) Body weight 254.00 [lb_av] 254.00 [lb_av] [facility] T ([facility]) Body mass index (BMI) [Ratio] 43.3 kg/m2 43.3 k g/m2 [facility] ([facility]) Heart rate 114 /min 114 /min [facility] Body weight 247.12 [lb_av] 247.12 [lb_av] [facility] T ([facility] Body height 64 [in_i] 64 [in_i] [facility] 5'4" Respiratory rate 18 /min 18 /min [facility] ( [facility] Systolic blood pressure 97 mm[Hg] 97 mm[Hg] M [facility] ([facility] Diastolic blood pressure 67 mm[Hg] 67 mm[Hg] [facility] ([facility] Body mass index (BMI) [Ratio] 42.4 kg/m2 42.4 k g/m2 [facility] ([facility] Heart rate 99 /min 99 /min [facility] Respiratory rate 16 /min 16 /min [facility] ( [facility]) Systolic blood pressure 110 mm[Hg] 110 mm[Hg] M [facility] ([facility] Body weight 249.00 [lb_av] 249.00 [lb_av] [facility] T ([facility] Body height 64 [in_i] 64 [in_i] [facility] 5'4" Diastolic blood pressure 75 mm[Hg] 75 mm[Hg] [facility] ([facility] Body mass index (BMI) [Ratio] 42.7 kg/m2 42.7 k g/m2 [facility] ([facility])
[2021-02-14 21:39] LABS: RSV AMPLIFICATION NEGATIVE (NEGATIVE)
[2021-02-15] MEDS ORDERED: ACETAMINOPHEN 500 MG TAB PO ONE (00:20)
[2021-02-15 00:21] LABS: CK-MB VALUE MASS < 1.0 NG/ML (<3.6); CPK CREATINE PHOSPHOKINASE 71 U/L (26-192); FREE T4 1.05 NG/DL (0.76-1.46); MB/CK RELATIVE INDEX 1.41 (< OR =4); TROPONIN I < 0.02 NG/ML (< 0.10)
[2021-02-15 00:39] LABS: BASO # 0.1 10^3/uL (0.0-0.2); BASO % 0.4 % (0.0-1.0); EOS # 0.1 10^3/uL (0.0-0.5); EOS % 0.9 % (0.0-3.0); HEMATOCRIT 39.9 % (36.0-47.0); HEMOGLOBIN 12.7 g/dl (12.0-15.5); LYMPH # 3.1 10^3/uL (1.5-5.0); LYMPH % 27.2 % (24.0-44.0); MEAN CORPUSCULAR HEMOGLOBIN 28.7 pg (27.0-33.0); MEAN CORPUSCULAR HGB CONC 31.8 g/dl (32.0-36.5); MEAN CORPUSCULAR VOLUME 90.3 fl (80.0-96.0); MONO # 0.7 10^3/uL (0.0-0.8); MONO % 6.2 % (2.0-8.0); NEUTROPHILS # 7.3 10^3/uL (1.5-8.5); NEUTROPHILS % 64.8 % (36.0-66.0); PLATELET COUNT, AUTOMATED 399 10^3/uL (150-450); RED BLOOD COUNT 4.42 10^6/uL (4.00-5.40); WHITE BLOOD COUNT 11.3 10^3/uL (4.0-10.0)
--- NOTE | 2021-02-15 00:58 | REPVR ---
PROCEDURE INFORMATION: Exam: XR Chest Exam date and time: 02/14/2021 12:13 AM Age: 40 years old Clinical indication: Shortness of breath; Additional info: SOB TECHNIQUE: Imaging protocol: XR of the chest. Views: 1 view. COMPARISON: CR PORTABLE CHEST X-RAY 01/03/2020 10:08 PM FINDINGS: Lungs: Left basilar atelectasis and/or infiltrate. Right lung is clear. Pleural spaces: Unremarkable. No pleural effusion. No pneumothorax. Heart/Mediastinum: Unremarkable. No cardiomegaly. Bones/joints: Unremarkable. IMPRESSION: Mild left basilar atelectasis and/or infiltrate. Electronically signed by: Clay Maxwell On 02/15/2021 00:57:56 AM
[2021-02-15] MEDS ORDERED: DOXYCYCLINE HYCLATE 100MG TABLET PO ONE (01:25)
[2021-02-15] MEDS ORDERED: DOXY-342 PO (01:26)
[2021-02-15 01:42] VITALS: BP 141/71
--- NOTE | 2021-02-15 11:05 | ECGEPIP ---
[facility] - ED Test Date: 2021-02-14 Pat Name: KRISTEN LOVETT Department: Room: - Gender: Female Forcer Maker: KSENIA : 1980 Requested By: TACHO WRIGHT Order Number: [id number] Reading MD: Anthony Frias Measurements Intervals Anthony Rate: 108 P: 48 AR: 150 QRS: 1 QRSD: 80 T: 48 QT: 324 QTc: 434 Interpretive Statements Sinus tachycardia Possible Inferior infarct , age undetermined SIMILAR TO 01/03/20 Electronically Signed on 02-15-2021 11:04:55 EST by Anthony Frias
== END 2021-02-15 01:44 | disposition home or self-care (01) ==
LOC: M ED 20:24
DX: J18.9 Pneumonia, unspecified organism (principal); E03.9 Hypothyroidism, unspecified; J98.11 Atelectasis; R00.0 Tachycardia, unspecified; J02.9 Acute pharyngitis, unspecified; R53.83 Other fatigue; K21.9 Gastro-esophageal reflux disease without esophagitis; Z86.711 Personal history of pulmonary embolism; Z88.1 Allergy status to other antibiotic agents; Z88.5 Allergy status to narcotic agent; Z88.8 Allergy status to other drugs, medicaments and biological substances; Z79.899 Other long term (current) drug therapy

== ENCOUNTER 2021-02-18 19:49 | Emergency (ER) | payer BC, OTHER ==
[~2021-02-18] VITALS: Ht 162.6 cm; Wt 119.8 kg
[~2021-02-18 19:49] MED LIST changes: +DOXY-342 PO
[2021-02-18 19:50] VITALS: BP 130/80
--- OUTSIDE RECORDS SUMMARY | 2021-02-18 19:54 | CCD ---
Continuity of Care Document (CCD) Created on: 02/16/2021 Ness Christopher External Reference #: [id number] : [id number] Sex: Female Author Author Ness HALL [facility] Organization Unknown Address [address] [facility] [address] [place] [address] Phone [phone] Care Team Providers Care Cupola Mechanic Name Role Phone Carol Tracey AUTM [phone] Rehana Hall AUTM [phone] Problems Description No Information Available Social History Type Date Description Comments Sex Unknown ETOH Use Denies alcohol use Tobacco Use Start: Unknown Patient has never smoked Allergies and adverse reactions Active Allergies Criticality Reaction | Severity Comments Date Ceftin Unable to assess criticality Cruz 02/14/2015 Oxycodone Unable to assess criticality anxiety 02/14/2015 Inactive Allergies NKDA Unable to assess criticality 02/14/2015 Medications Active Medications SIG Qnty Indications Ordering Provide r Date Fluconazole 150mg Tablets take 1 tablet by mouth today. repeat in 2 days 2tabs Ratna Portillo M.D. 12/15/2019 Famotidine 40mg Tablets Take 1 Tablet [...] 12 Hours as Directed 60tabs Rehana Hall, [facility] 2015 Zofran 4mg Tablets 1 by mouth every 6 hrs. as needed nausea 40tabs R19.7 Yrn Villarine, [facility] 04/04/2015 [place] Carbonate 300mg Capsules one at bedtime Unknown [...] puffs by mouth four times a day as needed 15gm Chacorta Caicedo MD Wellbutrin SR 150mg Tablets ER 12H R by mouth bid a day as directed Unknown Risperidone 0.5mg Tablets 1 by mouth tid Unknown Clonazepam 0.5mg Tablets 1 by mouth Twice a day Unknown Montelukast Sodium 10mg Tablets Take 1 Tablet By Mouth AT Bedtime 30tabs KAMERON Melo JR Medications Administered in Office Medication SIG Qnty Indications Ordering Provider Date Immunization Adminstration,1 Vaccine/Tox oid Injection Yrn Gil [facility] 04/15/2018 Immunizations CPT Code Status Date Vaccine Lot # [id number] Given 04/14/2020 Influenza,Unspecified [id number] Given 04/15/2018 Adacel- Tetanus Diphtheria P ertussis [id number] Refused 01/23/2018 Influenza Virus Vaccine, Quadrivalent ([id number]), Derived From Cell [id number] Refused 01/13/2017 Influenza Vaccin e Quadrivalent Preser/Antibiotic Free Im Use [id number] Refused 01/13/2017 Influenza Vaccin e Quadrivalent Preser/Antibiotic [...] Date Facility Test Result H/L Range Note Gats (Negative Strep Screen) 02/15/[address] [id number] [phone] Gats Culture (Neg Strep SCR) FULL REPORT IN L <SEE N OTE> Normal 1 Laboratory test finding 02/14/[address] [address] [phone] iSTAT B-hCG < 5.0 Normal 2 Istat Chem8+ Panel 02/14/2021 [facility] nter [address] [place] [address] [id number] [phone] iSTAT HCT 41.0 % Normal 38.0-51.0 iSTAT Glucose 83 mg/dL Normal 70-105 iSTAT Sodium 140 mEq/L Normal 136-145 iSTAT Potassium 3.4 mEq/L Low 3.5-5.1 iSTAT CA++ 4.7 mg/dL Normal 4.5-5.3 iSTAT Chloride 102 mEq/L Normal 98-109 iSTAT Co2 27.0 MM/L Normal 23.0-27.0 iSTAT BUN 6 mg/dL Low 8-26 iSTAT Creatinine 0.7 mg/dL Normal 0.6-1.3 Laboratory test finding 12/18/[address] [id number] [phone] Erythrocyte Sedimentation Rate 49 mm/hr High 0 -20 Phosphorus Level 2.1 mg/dL Low 2.5-4.9 CPK Creatine Phosphokinase 43 U/L Normal 26-192 Magnesium Level 2.3 mg/dL Normal 1.8-2.4 Iron (Fe) 64 g/dL Normal 50-170 Thyroid Stimulating Hormone 3.370 uIU/ML Normal 0.358-3.740 Vitamin B12 Level 432 pg/mL Normal 247-911 3 Total 25(Oh) Vitamin D 30.4 NG/ML Normal 30.0-100.0 Rheumatoid Factor Quant < 10.0 IU/mL Normal <15.0 C Reactive Protein Quantitativ 1.29 mg/dL High 0.00-0.30 Cyclic Citrullinated Peptide 7 units Normal 0-19 4 Landy Titer & Pattern 12/18/2020 [facility] nter [address] [id number] [phone] Landy (Hep2) Negative Normal . 5 1 FULL REPORT IN LAB NOTES (eC W and Medtrever). NEGATIVE FOR STREP PYOGENES (GROUP A) 2 QUANTITATIVE RESULT QUALITATIVE INTERPRETATION <5.0 IU/L NEGATIVE 5.0 - 25.0 IU/L INDETER MINATE >25.0 IU/L POSITIVE 3 VITAMIN B12 NORMAL RANGE NORMAL 247 - 911 PG/ML INDETERMINATE 211 - 246 PG/ML DEFICIENT LESS THAN 211 PG/ML 4 Negative <20 Weak positive 20 - 39 Moderate positive 40 - 59 Strong positive >59 5 Negative <1:80 Borderline 1:80 Positive >1:80 ICAP nomenclature: AC-0 For more information about Hep-2 cell patterns use ANApatterns.org, the official website for the International Consensus on Antinuclear Antibody (LANDY) Patterns (ICAP). Performed at: - [facility] [id number] Supervisor Metal Placing: Dorinda Garcia MD, Phone: [phone] Performed at: - [facility] [address] [id number] Supervisor Metal Placing: Claudia Butterfield MD, Phone: [phone] Procedures Date Code Description Status 12/22/2020 94774 Office/Outpatient Established Mo d MDM 30-39 Min Completed Medical Devices Description No Information Available Encounters Type Date Location Provider Dx Diagnosis Office Visit 12/22/2020 11:20a [facility] Rehana quigley, [employer] G89.29 Other chronic pain E55.9 Vitamin D deficiency, unspec ified E78.00 Pure hypercholesterolemia, u nspecified Z86.711 Personal history of pulmonar y embolism Z79.01 custodial (current) use of a nticoagulants F34.1 Dysthymic disorder Assessments Date Code Description Provider 12/22/2020 G89.29 Other chronic pain eRhana Hall , [facility] 12/22/2020 E55.9 Vitamin D deficiency, unspecifie d Rehana Hall, [facility] 12/22/2020 E78.00 Pure hypercholesterolemia, unspe cified Rehana Hall, [facility] 12/22/2020 Z86.711 Personal history of pulmonary em bolism Rehana Hall, [facility] 12/22/2020 Z79.01 custodial (current) use of antic oagulants Rehana Hall, [facility] 12/22/2020 F34.1 Dysthymic disorder KYLE Elizondo Plan of Treatment Future Appointment(s):* 07/05/2021 11:00 am - KYLE Elizondo at [facility] 12/22/2020 - KYLE Elizondo* G89.29 Other chronic pain* Comments:* Following with [facility] Rheumatology. CRP remains elevated, RF is negative. [...] On Xarelto at this point. * Z79.01 custodial (current) use of anticoagulants * F34.1 Dysthymic disorder* Comments:* Managed by the [facility] and follows there routinely; medications managed by their office. Functional Status Description No Information Available Mental Status Description No Information Available Referrals Description No Information Available
--- OUTSIDE RECORDS SUMMARY | 2021-02-18 19:55 | CCD ---
Author Author [facility] Organization [facility] Address Unknown Phone Unavailable Care Team Providers Care Formation Fracturing Operator Name Role Phone Maring, Wang PA Unavailable [...] Maring, Wang PA Unavailable Unavailable Isabel, Rehana INDUSTRIAL HIRE SALES ASSISTANT Unavailable Unavailable Isabel, Rehana INDUSTRIAL HIRE SALES ASSISTANT Unavailable Unavailable Isabel, Rehana INDUSTRIAL HIRE SALES ASSISTANT Unavailable Unavailable Isabel, Rehana INDUSTRIAL HIRE SALES ASSISTANT Unavailable Unavailable Isabel, Rehana INDUSTRIAL HIRE SALES ASSISTANT Unavailable Unavailable Isabel, Rehana INDUSTRIAL HIRE SALES ASSISTANT Unavailable Unavailable Isabel, Erhana INDUSTRIAL HIRE SALES ASSISTANT Unavailable Unavailable Isabel, Rehana INDUSTRIAL HIRE SALES ASSISTANT Unavailable Unavailable Isabel, Rehana INDUSTRIAL HIRE SALES ASSISTANT Unavailable Unavailable Isabel, Rehana INDUSTRIAL HIRE SALES ASSISTANT Unavailable Unavailable Isabel, Rehana INDUSTRIAL HIRE SALES ASSISTANT Unavailable Unavailable Isabel, Rehana INDUSTRIAL HIRE SALES ASSISTANT Unavailable Unavailable Isabel, Rehana INDUSTRIAL HIRE SALES ASSISTANT Unavailable Unavailable Isabel, Rehana INDUSTRIAL HIRE SALES ASSISTANT Unavailable Unavailable Isabel, Rehana INDUSTRIAL HIRE SALES ASSISTANT Unavailable Unavailable Isabel, Rehana INDUSTRIAL HIRE SALES ASSISTANT Unavailable Unavailable Isabel, Rehana INDUSTRIAL HIRE SALES ASSISTANT Unavailable Unavailable Isabel, Rehana INDUSTRIAL HIRE SALES ASSISTANT Unavailable Unavailable Isabel, Rehana INDUSTRIAL HIRE SALES ASSISTANT Unavailable Unavailable Isabel, Rehana INDUSTRIAL HIRE SALES ASSISTANT Unavailable Unavailable Isabel, Rehana INDUSTRIAL HIRE SALES ASSISTANT Unavailable Unavailable Isabel, Rehana INDUSTRIAL HIRE SALES ASSISTANT Unavailable Unavailable Isabel, Rehana INDUSTRIAL HIRE SALES ASSISTANT Unavailable Unavailable Isabel, Rehana INDUSTRIAL HIRE SALES ASSISTANT Unavailable Unavailable Isabel, Rehana INDUSTRIAL HIRE SALES ASSISTANT Unavailable Unavailable Isabel, Rehana INDUSTRIAL HIRE SALES ASSISTANT Unavailable Unavailable Isabel, Rehana INDUSTRIAL HIRE SALES ASSISTANT Unavailable Unavailable Isabel, Rehana INDUSTRIAL HIRE SALES ASSISTANT Unavailable Unavailable Isabel, Rehana INDUSTRIAL HIRE SALES ASSISTANT Unavailable Unavailable Isabel, Rehana INDUSTRIAL HIRE SALES ASSISTANT Unavailable Unavailable Isabel, Rehana INDUSTRIAL HIRE SALES ASSISTANT Unavailable Unavailable Isabel, Rehana INDUSTRIAL HIRE SALES ASSISTANT Unavailable Unavailable Isabel, Rehana INDUSTRIAL HIRE SALES ASSISTANT Unavailable Unavailable Isabel, Rehana INDUSTRIAL HIRE SALES ASSISTANT Unavailable Unavailable Isabel, Rehana INDUSTRIAL HIRE SALES ASSISTANT Unavailable Unavailable AVIS KERN MD Unavailable Unavailable [...] FRENCH MD Unavailable Unavailable LAROCK, Dylan NEAL LOFT PATTERNMAKER Unavailable Unavailable LAROCK, Dylan NEAL LOFT PATTERNMAKER Unavailable Unavailable LAROCK, Dylan NEAL LOFT PATTERNMAKER Unavailable Unavailable LAROCK, Dylan NEAL LOFT PATTERNMAKER Unavailable Unavailable LAROCK, Dylan NEAL LOFT PATTERNMAKER Unavailable Unavailable LAROCK, Dylan NEAL LOFT PATTERNMAKER Unavailable Unavailable LAROCK, Dylan NEAL LOFT PATTERNMAKER Unavailable Unavailable LAROCK, Dylan NEAL LOFT PATTERNMAKER Unavailable Unavailable LAROCK, Dylan NEAL LOFT PATTERNMAKER Unavailable Unavailable LAROCK, Dylan NEAL LOFT PATTERNMAKER Unavailable Unavailable LAROCK, Dylan NEAL LOFT PATTERNMAKER Unavailable Unavailable LAROCK, Dylan NEAL LOFT PATTERNMAKER Unavailable Unavailable LAROCK, Dylan NEAL LOFT PATTERNMAKER Unavailable Unavailable LAROCK, Dylan NEAL LOFT PATTERNMAKER Unavailable Unavailable LAROCK, Dylan NEAL LOFT PATTERNMAKER Unavailable Unavailable LAROCK, Dylan NEAL LOFT PATTERNMAKER Unavailable Unavailable LAROCK, Dylan NEAL LOFT PATTERNMAKER Unavailable Unavailable LAROCK, Dylan NEAL LOFT PATTERNMAKER Unavailable Unavailable LAROCK, Dylan NEAL LOFT PATTERNMAKER Unavailable Unavailable LAROCK, Dylan NEAL LOFT PATTERNMAKER Unavailable Unavailable LAROCK, Dylan NEAL LOFT PATTERNMAKER Unavailable Unavailable LAROCK, Dylan NEAL LOFT PATTERNMAKER Unavailable Unavailable Feola, T Guillermina PA Unavailable [...] Unavailable Unavailable Amparo Marquez MD Unavailable Unavailable Ampaor Marquez MD Unavailable Unavailable Amparo Marquez MD [...] Toya Yanique PA-C Unavailable Unavailable DESJARLAIS, AWILDA LOFT PATTERNMAKER Unavailable Unavailable DESJARLAIS, AWILDA LOFT PATTERNMAKER Unavailable Unavailable DESJARLAIS, AWILDA LOFT PATTERNMAKER Unavailable Unavailable DESJARLAIS, AWILDA LOFT PATTERNMAKER Unavailable Unavailable DESJARLAIS, AWILDA LOFT PATTERNMAKER Unavailable Unavailable DESJARLAIS, AWILDA LOFT PATTERNMAKER Unavailable Unavailable DESJARLAIS, AWILDA LOFT PATTERNMAKER Unavailable Unavailable DESJARLAIS, AWILDA LOFT PATTERNMAKER Unavailable Unavailable DESJARLAIS, AWILDA LOFT PATTERNMAKER Unavailable Unavailable DESJARLAIS, AWILDA LOFT PATTERNMAKER Unavailable Unavailable Re-disclosure Warning The records that [...] is protected by Article 27-F of the [facility] Public Health law. If you continue you may have access to information: Regarding HIV / AIDS; Provided by facilities licensed or operated by the [facility] Office of Mental Health; or Provided by the [facility] Office for People With Developmental Disabilities. If such information is present, then the following [facility] mandated warning applies: This information has [...] law may result in a fine or fdc sentence or both. A general authorization for the release of medical or other information is NOT sufficient authorization for further disc losure. Family History Family Member Name Family Member Gender Family Member Status Date o f Status Description Data Source(s) Unknown Unknown Problem [facility] ([facility]) Encounters Encounter Providers Location Date Indications Data Source(s ) Outpatient Attender: Yanique Phan PA-C 01/06 12:40:35 PM EDT - 01/29/2021 01:50:18 PM EDT [facility] ([facility] ) Outpatient Attender: Wang MELO 01/28/20 08:31:49 AM EDT - 01/27/2021 08:58:46 AM EDT [facility] ([facility] ) Outpatient Attender: AWILDA JOHNSON NP 01/24/2021 11: 00:00 AM [facility] Outpatient Attender: Rehana Mcclelland 11:20:00 AM EDT [facility] ([facility] ) Outpatient Attender: AWILDA JOHNSON NP 12/21/2020 01: 00:00 PM [facility] Outpatient Attender: AWILDA JOHNSON NP 11/30/2020 04: 40:00 PM [facility] Outpatient Attender: Amparo Marquez MD Main office - [place] 10/26/2020 02:30:00 PM EDT [facility] ([facility]) Outpatient Attender: AVIS KERN MD Main Office 10/19/2020 02:15:00 PM EDT [facility] ([facility] Outpatient Attender: AWILDA JOHNSON NP 10/05/2020 02: 20:00 PM [facility] Outpatient Attender: AWILDA JOHNSON LOFT PATTERNMAKER 08/25/2020 01: 20:00 PM [facility] Outpatient Attender: AWILDA JOHNSON LOFT PATTERNMAKER 08/02/2020 04: 00:00 PM [facility] Outpatient Attender: KAVON MASTERSON JR Sascha Mcclelland 0 07/14/2020 11:20:00 AM EDT [facility] ([facility] ) Outpatient Attender: AWILDA JOHNSON NP 06/14/2020 08: 28:00 AM [facility] Outpatient Attender: ÁNGEL MUNGUIA NP 05/09 12:32:17 PM [facility] - 06/01/2020 01:26:51 PM EST [facility] ([facility] ) Outpatient Attender: AWILDA JOHNSON NP 05/26/2020 04: 40:00 PM [facility] Outpatient Attender: Guillermina MELO 021 04:42:41 PM [facility] - 05/22/2020 05:29:27 PM EST [facility] ([facility] ) Outpatient Attender: Guillermina MELO 021 04:49:56 PM [facility] - 05/17/2020 05:44:24 PM EST [facility] ([facility] ) Outpatient Attender: AWILDA JOHNSON NP 04/28/2020 04: 40:00 PM [facility] Outpatient Attender: AVIS KERN MD Main Office 04/20/2020 01:15:00 PM EST [facility] ([facility] Outpatient Attender: AWILDA JOHNSON NP 03/16/2020 04: 40:00 PM [facility] Outpatient Attender: AWILDA JOHNSON NP 01/28/2020 04: 40:00 PM [facility] Outpatient Attender: Amparo Marquez MD Main office [facility] 01/28/2020 09:30:00 AM EDT [facility] ([facility]) Outpatient Attender: AVIS KERN MD Main Office 01/27/2020 10:15:00 AM EDT [facility] ([facility]) Immunizations Vaccine Date Status Description Data Source(s) COVID-19 VACCINE Pfizer 07/09/2020 12:00:00 AM EDT completed [facility] Vaccine Series Complete: YESThis Data wa s Submitted to [facility] Via Fingerprint. COVID-19 VACCINE Pfizer 06/18/2020 12:00:00 AM EST completed [facility] Vaccine Series Complete: NOThis Data was Submitted to [facility] Via Fingerprint. This CVX code allows reporting of a vacc ination when formulation is unknown (for example, when recording a Influenza vaccination when noted on a vaccination card) 04/14/2020 09:45:00 AM EST completed MEDEN T ([facility]) Medications Medication Brand Name Start Date [...] 01/28/2020 12:00:00 AM EDT ORAL active [facility] ([facility] ) Flonase Allergy Relief Flonase [...] relationship to boyer Policy Boyer Plan Information [facility] 010/510 [id number] HU2 [id number] [employer] BCBS Health Maintenance Organization (HMO) [id number] BCBS OF [place] 010/510 [id number] 2 [id number] BLUE CROSS [id number] SP [id number] BS Luis Alfredo Trad/MX Medigap Part B [id number] Family Dependent [id number] BS [place] Trad/MX Commercial [id number] Family Dependent BS Luis Alfredo Trad/MX Commercial [id number] Family Dependent [id number] BC/BS Of [facility] [id number] Family Depende nt BCBS OF [place] 010/510 [id number] 2 [id number] [employer] [facility] Commercial Insurance Co. [id number] Spouse [id number] [employer] Commercial Insurance Co. [id number] Spouse [id number] BCBS ..[id number] Blue Cross/Bl ue Shield ..[id number] [place] .[id number] Commercial Insur ance Co. .[id number] [employer] [id number] SPO [id number] [employer] [place] Commercial [id number] Family Dependent [id number] [employer] [place] Commercial [id number] Family Dependent [id number] SELF PAY ONLY 0 SP 0 [employer] [facility] [place] Commercial [id number] Family Dependent [id number] [employer] [place] Commercial [id number] Family Dependent [id number] O UNAVAILABLE UNAVAILA BLE BCBS [place] WATN PPO 302/307 [id number] HU2 [id number] [place] BCBS B [id number] P D [id number] BCBS [place] WATN PPO 302/307 [id number] HU2 [id number] BCBS-Al Ppo Commercial [id number] Family Dependent BS [place] Commercial [id number] Family Dependent BLUE CROSS BLUE SHIELD-O/P [id number] BCBS EMPIRE URI DIV [id number] [id number] [facility] [id number] HU2 [id number] [employer] [id number] SPO [id number] [employer] [id number] SPO [id number] BCBS EMPIRE URI DIV [id number] HU2 [id number] UNITED HEALTHCARE [id number] SP [id number] UNITED HEALTHCARE O [id number] S [id number] BCBS EMPIRE URI DIV [id number] HU2 [id number] BCBS OF [place] 010/510 [id number] HU2 [id number] [employer] [place] Commercial [id number] Family Dependent [id number] [facility] [place] Commercial [id number] Family Dependent [id number] Problems, Conditions, and Diagnoses Code Display Name Description Problem Type Effective Dates Data Source(s) G47.00 Insomnia, unspecified INSOMNIA, UNSPECIFIED Diagnosis 12/21/2020 01:00:00 PM [facility] F43.23 Adjustment disorder with mixed anxiety a nd depressed mood ADJUSTMENT DISORDER WITH MIXED ANXIETY AND DEPRESS Diagnosis 11/30/2020 04:40:00 PM [facility] F90.1 Attention-deficit hyperactivity disorder , predominantly hyperactive type ATTN-DEFCT HYPERACTIVITY DISORDER, PREDOM HYPERACT Diagnosis 04:40:00 PM [facility] F41.1 Generalized anxiety disorder GENERALIZED ANXIETY DISOR FOREIGN Diagnosis 11/30/2020 04:40:00 PM [facility] F90.9 Attention-deficit hyperactivity disorder , unspecified type ATTENTION- DEFICIT HYPERACTIVITY DISORDER, UNSPECIFIED TYPE Diagnosis 10/05 02:20:00 PM [facility] Surgeries/Procedures Procedure Description Date Indications Data Source(s) OFFICE OUTPATIENT VISIT 25 MINUTES 12/22/2020 12:00:00 AM EDT [facility] ([facility]) OFFICE OUTPATIENT VISIT 25 MINUTES 10/26/2020 12:00:00 AM EDT [facility] ([facility] ) BRNCDILAT RSPSE SPMTRY PRE&POST-BRNCDILAT ADMN 021 12:00:00 AM EDT [facility] ([facility]) OFFICE OUTPATIENT VISIT 15 MINUTES 10/19/2020 12:00:00 AM EDT [facility] ([facility] OFFICE OUTPATIENT VISIT 25 MINUTES 07/14/2020 12:00:00 AM EDT [facility] ([facility]) BRNCDILAT RSPSE SPMTRY PRE&POST-BRNCDILAT ADMN 021 12:00:00 AM EST [facility] ([facility]) PERCUTANEOUS TESTS W/ALLERGENIC EXTRACTS 04/20/2020 12 :00:00 AM EST [facility] ([facility]) NITRIC OXIDE GAS DETERMINATION 04/20/2020 12:0 0:00 AM EST [facility] ([facility]) INTRACUTANEOUS TESTS W/ALLERGENIC EXTRACTS 04/20/2020 12:00:00 AM EST [facility] ([facility]) Results ID Date Data Source [id number] 02/15/2021 01:36:00 AM EST [facility] ([facility]) Name Value Range Interpretation Code Description Data Fidelina rce(s) Supporting Document(s) Gats Culture (Neg Strep SCR) Laboratory test result [facility] ([facility]) FULL REPORT IN LAB NOTES ([facility] and [facility] ). NEGATIVE FOR STREP PYOGENES (GROUP A) ID Date Data Source [id number] 02/14/2021 11:43:00 PM EST [facility] ([facility]) Name Value Range Interpretation Code Description Data Fidelina rce(s) Supporting Document(s) Choriogonadotropin.beta subunit [Moles/volume] in Seru m or Plasma Laboratory test result [facility] ([facility] ) <content>QUANTITATIVE RESULT QU ALITATIVE INTERPRETATION</content>
<content> </content>
<content><5.0 IU/L NEGATIVE</content>
<content>5.0 - 25.0 IU/L INDETERMINATE</content>
<content>>25.0 IU/L POSITIVE</content>
<content></content> ID Date Data Source [id number] 02/14/2021 11:40:00 PM EST [facility] ([facility]) Name Value Range Interpretation Code Description Data Fidelina rce(s) Supporting Document(s) Laboratory test finding (navigational concept) 41.0 % 38.0-51.0 [facility] ([facility]) Laboratory test finding (navigational concept) 140 meq/L 136-145 [facility] ([place] [facility]) Laboratory test finding (navigational concept) 83 mg/dL 70-105 [facility] ([place] [facility]) Laboratory test finding (navigational concept) 4.7 mg/dL 4.5-5.3 [facility] ([facility]) Laboratory test finding (navigational concept) 102 meq/L 98-109 [facility] ([place]) Laboratory test finding (navigational concept) 3.4 meq/L 3.5-5.1 [facility] ([facility] [facility]) Laboratory test finding (navigational concept) 6 mg/dL 8-26 [facility] ([facility]) Laboratory test finding (navigational concept) 27.0 MM/L 23.0-27.0 [facility] ([facility]) Laboratory test finding (navigational concept) 0.7 mg/dL 0.6-1.3 [facility] ([facility]) ID Date Data Source [id number] 01/27/2021 08:45:00 AM EDT [facility] Name Value Range Interpretation Code Description Data Fidelina rce(s) Supporting Document(s) SARS-CoV-2 RNA Resp Ql KSENIA+probe NOT DETECTED [facility] This lab was ordered by SAM montoya and reported by SAM Rubalcava. ID Date Data Source [id number] 12/18/2020 08:45:00 AM EDT [facility] ([facility]) Name Value Range Interpretation Code Description Data Fidelina rce(s) Supporting Document(s) Yoselin (Hep2) Laboratory test result [facility] ([place] [facility]) <content>Negative <1:80</content>
<content>Borderline 1:80</content>
<content>Positive >1:80</content>
<content>ICAP nomenclature: AC-0</content>
<content>For more information about Hep-2 cell patterns use</content>
<content>ANApatterns.org, the official website for the</content>
<content>International Consensus on Antinuclear Antibody (YOSELIN)</content>
<content>Patterns (ICAP).</content>
<content>Performed at: [facility] - [facility]</content>
<content>[address] [place], [place] [id number]</content>
<content>Tariff Expert: Dorinda Garcia MD, Phone: [phone]</content>
<content>Performed at: RN - [facility]</content>
<content>[address], [place] [id number]</content>
<content>Tariff Expert: Claudia Butterfield MD, Phone: [phone]</content>
<content></content> ID Date Data Source [id number] 12/18/2020 08:45:00 AM EDT [facility]) Name Value Range Interpretation Code Description Data Fidelina rce(s) Supporting Document(s) Phosphate [Moles/volume] in Serum or Plasma 2.1 mg/dL 2.5-4.9 [facility] ([place] [facility]) Erythrocyte sedimentation rate by Westergren method 49 mm/hr 0-20 [facility] ([facility]) Magnesium [Moles/volume] in Serum or Plasma 2.3 mg/dL 1.8-2.4 [facility] ([facility]) Creatine kinase [Enzymatic activity/volume] in Serum or Plasma 43 U /L 26-192 [facility] ([facility]) Iron [Mass/volume] in Serum or Plasma 64 ug/dL 50-170 [facility] ([facility]) Calcidiol [Mass/volume] in Serum or Plasma 30.4 ng/mL 30.0-100.0 [facility] ([facility]) Cobalamin (Vitamin B12) [Mass/volume] in Serum or Plasma 432 pg/mL 2 47-911 [facility] ([facility]) VITAMIN B12 NORMAL RANGE NORMAL 247 - 911 PG/ML INDETERMINATE 211 - 246 PG/ML DEFICIENT LESS THAN 211 PG/ML Thyrotropin [Units/volume] in Serum or Plasma by Detec tion limit <= 0.05 mIU/L 3.370 uIU/ML 0.358-3.740 [facility] ([facility] ) Rheumatoid Factor Quant Laboratory test result [facility] ([facility]) C reactive protein [Mass/volume] in Serum or Plasma by High sensitivity method 1.29 mg/dL 0.00-0.30 [facility] ([facility] ) Cyclic citrullinated peptide IgG Ab [Units/volume] in Serum or Plasma 7 units 0-19 [facility] ([facility]) <content>Negative <20</con tent>
<content>Weak positive 20 - 39</content>
<content>Moderate positive 40 - 59</content>
<content>Strong positive >59</content>
<content></content> ID Date Data Source [id number] 06/02/2020 06:16:00 PM EST [facility] Name Value Range Interpretation Code Description Data Fidelina rce(s) Supporting Document(s) BHD COVID-19 RT-PCR NASAL SWAB Not Detected Not Detected [facility] This test has received Emergency Use Aut horization (EUA). We willcontinue to follow federal and state requirements for COVID-19reporting. This test was developed and its performance characteristicsdetermined by [facility]. It has not been cleared orapproved by [...] agencies as required. ID Date Data Source [id number] 06/01/2020 01:00:00 PM EST [facility] Name Value Range Interpretation Code Description Data Fidelina rce(s) Supporting Document(s) SARS coronavirus 2 RNA [Presence] in Res piratory specimen by KSENIA with probe detection NEGATIVE [facility] This lab was ordered by [facility] and reported by [facility]. ID Date Data Source [id number] 06/01/2020 12:00:00 AM EST [facility] Name Value Range Interpretation Code Description Data Fidelina rce(s) Supporting Document(s) Carestart Rapid COVID Antigen Test Negative [facility] Katt thomas. ID Date Data Source [id number] 05/17/2020 12:00:00 AM EST [facility] Name Value Range Interpretation Code Description Data Fidelina rce(s) Supporting Document(s) SARS coronavirus 2 RNA [Presence] in Res piratory specimen by KSENIA with probe detection NEGATIVE [facility] This lab was ordered by [facility] and reported by [facility]. ID Date Data Source [id number] 05/17/2020 12:00:00 AM EST [facility] Name Value Range Interpretation Code Description Data Fidelina rce(s) Supporting Document(s) Carestart Rapid [facility] Antigen Test Negative [facility] This lab was reported by Christel thomas. ID Date Data Source [id number] 04/12/2020 12:24:00 PM EST [facility] ([facility]) Name Value Range Interpretation Code Description Data Fidelina rce(s) Supporting Document(s) Phosphate [Moles/volume] in Serum or Plasma 2.2 mg/dL 2.5-4.9 [facility] ([facility]) Magnesium [Moles/volume] in Serum or Plasma 2.2 mg/dL 1.8-2.4 [facility] ([facility]) Creatine kinase [Enzymatic activity/volume] in Serum or Plasma 63 U /L 26-192 [facility] ([facility]) Cobalamin (Vitamin B12) [Mass/volume] in Serum or Plasma 410 pg/mL 2 47-911 [facility] ([facility]) VITAMIN B12 NORMAL RANGE NORMAL 247 - 911 PG/ML INDETERMINATE 211 - 246 PG/ML DEFICIENT LESS THAN 211 PG/ML Calcidiol [Mass/volume] in Serum or Plasma 47.0 ng/mL 30.0-100.0 [facility] ([place] [facility]) ID Date Data Source [id number] 01/03/2020 08:50:00 PM EDT [facility] ([facility]) Name Value Range Interpretation Code Description Data Fidelina rce(s) Supporting Document(s) Natriuretic peptide.B prohormone N-Terminal [Mass/volu me] in Serum or Plasma 10 pg/mL [facility] ([facility] ) Thyroxine (T4) Ab [Units/volume] in Serum 8.9 ug/dL 4.5-12.0 [facility] ([facility]) Thyrotropin [Units/volume] in Serum or Plasma by Detec tion limit <= 0.05 mIU/L 2.670 uIU/ML 0.358-3.740 [facility] ([facility] ) HCG Serum Qualitative Laboratory test result [facility] ([facility]) Bacteria identified in Blood by Culture Laboratory test result [facility] ([facility]) No growth after 72 hours . All specimens observed for 5 days. Results final at that time. No growth after 48 hours . All specimens observed for 5 days. Results final at that time. No growth after 24 hours . All specimens observed for 5 days. Results final at that time. NO GROWTH AFTER 5 DAYS ID Date Data Source [id number] 01/03/2020 08:50:00 PM EDT [facility] ([facility]) Name Value Range Interpretation Code Description Data Fidelina rce(s) Supporting Document(s) Glucose, Fasting 88 mg/dL 70-100 [facility] ([facility]) Blood Urea Nitrogen 9 mg/dL 7-18 [facility] ([facility]) Creatinine For GFR 0.90 mg/dL 0.55-1.30 [facility] ([facility]) Glomerular Filtration Rate Laboratory test result [facility] ([place] [facility]) <content>Units are mL/min/1.73 m2</content>
<content></content>
<content>Chronic Kidney Disease Staging per [facility]:</content>
<content></content>
<content>Stage I & II GFR >=60 Normal to Mildly Decreased</content>
<content>Stage III GFR 30- 59 Moderately Decreased</content>
<content>Stage IV GFR 15-29 Severely Decreased</content>
<content>Stage V GFR <15 Very Little GFR Left</content>
<content>ESRD GFR <15 on [employer]</content>
<content></content> Sodium Level 137 meq/L 136-145 [facility] ([facility]) Potassium Serum 4.0 meq/L 3.5-5.1 [facility] ([facility]) Carbon Dioxide Level 24 meq/L 21-32 [facility] Anion Gap 6 meq/L 8-16 [facility]) Chloride Level 107 meq/L 98-107 [facility] ([facility]) Calcium Level 9.2 mg/dL 8.5-10.1 [facility] ([facility]) ID Date Data Source [id number] 01/03/2020 08:50:00 PM EDT [facility] ([facility]) Name Value Range Interpretation Code Description Data Fidelina rce(s) Supporting Document(s) Alt/SGPT 23 U/L 12-78 [facility] ([place] [facility]) Ast/Sgot 11 U/L 7-37 [facility] ([place] [facility]) Bilirubin,Direct Laboratory test result 0.0-0.2 [facility] ([facility]) Alkaline Phosphatase 152 U/L 45-117 [facility] ([facility]) Bilirubin,Total 0.2 mg/dL 0.2-1.0 [facility] ([facility]) Total Protein 7.5 GM/DL 6.4-8.2 [facility] ([facility]) Albumin 3.2 GM/DL 3.2-5.2 [facility] ([place] [facility]) Albumin/Globulin Ratio 0.7 1.2-2.2 [facility] ([facility]) ID Date Data Source [id number] 01/03/2020 08:50:00 PM EDT [facility] ([facility]) Name Value Range Interpretation Code Description Data Fidelina rce(s) Supporting Document(s) CPK Creatine Phosphokinase 63 U/L 26-192 [facility] ([facility]) MB/CK Relative Index 1.59 [facility] ([facility]) <content>DIAGNOSIS CRITERIA</content>
<content>MMB ng/ml Relative Index (RI)</content>
<content>NON-AMI < or = 5 N/A</content>
<content>GARSIA ZONE > 5 < or = 4</content>
<content>AMI > 5 > 4</content>
<content></content> Troponin I Laboratory test result [facility] ([facility]) <content>Troponin I Reference Interval f or Siemens [place] LOCI:</content>
<content></content>
<content>99th Percentile= 0.00-0.045 ng/ml</content>
<content></content>
<content>Risk Stratification:</content>
<content><= 0.10 ng/ml Decreased Risk for Adverse Clinical</content>
<content>Events.</content>
<content>0.10-1.50 ng/ml Increased Risk for Adverse Clinical</content>
<content>Events. Evaluation of additional</content>
<content>criterion and/or repeat testing in 2-6</content>
<content>hours is suggested to rule out myocardial</content>
<content>damage.</content>
<content>>= 1.50 ng/ml Indicative of Myocardial Injury.</content>
<content></content> CK-MB Value Mass Laboratory test result [facility] ([facility]) ID Date Data Source [id number] 01/03/2020 08:50:00 PM EDT [facility] ([facility]) Name Value Range Interpretation Code Description Data Fidelina rce(s) Supporting Document(s) Inr 1.13 [facility] ([place] [facility]) THERAPUTIC HUMAN INR VALUES INDICATIONS NORMAL RANGES PROPHYLAXIS/TREATMENT OF: VENOUS THROMBOSIS 2.0-3.0 PULMONARY EMBOLISM 2.0-3.0 PREVENTION OF SYSTEMIC EMBOLISM FROM: TISSUE HEART VALVES 2.0-3.0 ACUTE MYOCARDIAL INFARCTION 2.0-3.0 VALVULAR HEART DISEASE 2.0-3.0 ATRIAL FIBRILLATION 2.0-3.0 MECHANICAL VALVES(HIGH RISK) 2.5-3.5 RECURRENT MYOCARDIAL INFARCTION 2.5-3.5 Prothrombin Time 14.7 s 12.5-14.3 [facility] ([facility]) ID Date Data Source [id number] 01/03/2020 08:50:00 PM EDT [facility] ([facility]) Name Value Range Interpretation Code Description Data Fidelina rce(s) Supporting Document(s) White Blood Count 8.9 10 4.0-10.0 [facility] ([facility]) Hemoglobin 13.1 g/dL 12.0-15.5 [facility] ([facility]) Hematocrit 39.6 % 36.0-47.0 [facility]) Red Blood Count 4.54 10 4.00-5.40 [facility] ([facility]) Mean Corpuscular Hemoglobin 28.9 pg 27.0-33.0 [facility] ([facility]) Mean Corpuscular HGB Conc 33.1 g/dL 32.0-36.5 [facility] ([facility]) Mean Corpuscular Volume 87.2 fl 80.0-96.0 [facility] ([facility]) Red Cell Distribution Width 13.2 % 11.5-14.5 [facility] ([facility]) Platelet Count, Automated 411 10 150-450 [facility] ([facility]) Neutrophils % 66.4 % 36.0-66.0 [facility] ([facility]) [place] % 5.8 % 0.0-5.0 [facility] [facility]) Lymph % 26.2 % 24.0-44.0 [facility] [facility]) Eos % 0.9 % 0.0-3.0 [facility]) Baso % 0.4 % 0.0-1.0 [facility] Immature Granulocyte % 0.3 % 0-3.0 [facility] ([facility]) Neutrophils # 5.9 10 1.5-8.5 [facility] ([facility]) Nucleated Red Blood Cell % 0.0 % 0-0 [facility] ([facility]) [place] # 0.5 10 0.0-0.8 [facility]) Lymph # 2.3 10 1.5-5.0 [facility]) Eos # 0.1 10 0.0-0.5 [facility]) Baso # 0.0 10 0.0-0.2 [facility]) ID Date Data Source [id number] 01/03/2020 08:45:00 PM EDT [facility] ([facility]) Name Value Range Interpretation Code Description Data Fidelina rce(s) Supporting Document(s) Blood Culture Laboratory test result [facility] ([facility]) No growth after 72 hours . All [...] smoked [facility] ([facility] ) Vital Signs ID Date Data Source UNK Name Value Range Interpretation Code Description Data Source(s) Diastolic blood pressure 80 mm[Hg] 80 mm[Hg] [facility] ([facility]) RT Arm Systolic blood pressure 110 mm[Hg] 110 mm[Hg] [facility] ([facility]) RT Arm Body mass index (BMI) [Ratio] 43.6 kg/m2 43.6 k g/m2 [facility] ([facility]) Body height 64.25 [in_i] 64.25 [in_i] [facility] ([facility]) 5'4.25" Body weight 256.25 [lb_av] 256.25 [lb_av] [facility] T ([facility]) Heart rate 100 /min 100 /min [facility] ([facility]) Diastolic blood pressure 76 mm[Hg] 76 mm[Hg] [facility] Body mass index (BMI) [Ratio] 43.1 kg/m2 43.1 k g/m2 [facility] Body weight 251.12 [lb_av] 251.12 [lb_av] [facility] ([facility] Body height 64 [in_i] 64 [in_i] [facility] 5'4" Heart rate 128 /min 128 /min [facility] Respiratory rate 20 /min 20 /min [facility] ( [facility]) Systolic blood pressure 108 mm[Hg] 108 mm[Hg] [facility] ([facility] Body mass index (BMI) [Ratio] 43.3 kg/m2 43.3 k g/m2 [facility] ([facility]) Systolic blood pressure 100 mm[Hg] 100 mm[Hg] M [facility] ([facility]) Body weight 254.00 [lb_av] 254.00 [lb_av] [facility] T ([facility]) Body height 64.25 [in_i] 64.25 [in_i] [facility] ([facility]) 5'4.25" Diastolic blood pressure 60 mm[Hg] 60 mm[Hg] [facility] ([facility]) Body weight 247.12 [lb_av] 247.12 [lb_av] [facility] T ([facility] Body height 64 [in_i] 64 [in_i] [facility] 5'4" Respiratory rate 18 /min 18 /min [facility] ( [facility]) Heart rate 114 /min 114 /min [facility] Systolic blood pressure 97 mm[Hg] 97 mm[Hg] [facility] ([facility] [...] Systolic blood pressure 110 mm[Hg] 110 mm[Hg] [facility] ([facility]) [...]
[2021-02-18 20:17] VITALS: O2SAT 98
--- OUTSIDE RECORDS SUMMARY | 2021-02-18 21:20 | CCD ---
Author Author [facility] Organization [facility] Address Unknown Phone Unavailable Care Team Providers Care Public Affairs Director Name Role Phone Maring, Wang PA Unavailable [...] Maring, Wang PA Unavailable Unavailable Isabel, Rehana VISUAL SUPERVISOR Unavailable Unavailable Isabel, Rehana VISUAL SUPERVISOR Unavailable Unavailable Isabel, Rehana VISUAL SUPERVISOR Unavailable Unavailable Isabel, Rehana VISUAL SUPERVISOR Unavailable Unavailable Isabel, Rehana VISUAL SUPERVISOR Unavailable Unavailable Isabel, Rehana VISUAL SUPERVISOR Unavailable Unavailable Isabel, Rehana VISUAL SUPERVISOR Unavailable Unavailable Isabel, Rehana VISUAL SUPERVISOR Unavailable Unavailable Isabel, Rehana VISUAL SUPERVISOR Unavailable Unavailable Isabel, Rehana VISUAL SUPERVISOR Unavailable Unavailable Isabel, Rehana VISUAL SUPERVISOR Unavailable Unavailable Isabel, Rehana VISUAL SUPERVISOR Unavailable Unavailable Isabel, Rehana VISUAL SUPERVISOR Unavailable Unavailable Isabel, Rheana VISUAL SUPERVISOR Unavailable Unavailable Isabel, Rehana VISUAL SUPERVISOR Unavailable Unavailable Isabel, Rehana VISUAL SUPERVISOR Unavailable Unavailable Isabel, Rehana VISUAL SUPERVISOR Unavailable Unavailable Isabel, Rehana VISUAL SUPERVISOR Unavailable Unavailable Isabel, Rehana VISUAL SUPERVISOR Unavailable Unavailable Isabel, Rehana VISUAL SUPERVISOR Unavailable Unavailable Isabel, Rehana VISUAL SUPERVISOR Unavailable Unavailable Isabel, Rehana VISUAL SUPERVISOR Unavailable Unavailable Isabel, Rehana VISUAL SUPERVISOR Unavailable Unavailable Isabel, Rehana VISUAL SUPERVISOR Unavailable Unavailable Isabel, Rehana VISUAL SUPERVISOR Unavailable Unavailable Isabel, Rehana VISUAL SUPERVISOR Unavailable Unavailable Isabel, Rehana VISUAL SUPERVISOR Unavailable Unavailable Isabel, Rehana VISUAL SUPERVISOR Unavailable Unavailable Isabel, Rehana VISUAL SUPERVISOR Unavailable Unavailable Isabel, Rehana VISUAL SUPERVISOR Unavailable Unavailable Isabel, Rehana VISUAL SUPERVISOR Unavailable Unavailable Isabel, Rehana VISUAL SUPERVISOR Unavailable Unavailable Isabel, Rehana VISUAL SUPERVISOR Unavailable Unavailable Isabel, Rehana VISUAL SUPERVISOR Unavailable Unavailable Isabel, Rehana VISUAL SUPERVISOR Unavailable Unavailable AVIS KERN MD Unavailable Unavailable [...] FRENCH MD Unavailable Unavailable LAROCK, Dylan NEAL TIME BUYER Unavailable Unavailable LAROCK, Dylan NEAL TIME BUYER Unavailable Unavailable LAROCK, Dylan NEAL TIME BUYER Unavailable Unavailable LAROCK, Dylan NEAL TIME BUYER Unavailable Unavailable LAROCK, Dylan NEAL TIME BUYER Unavailable Unavailable LAROCK, Dylan NEAL TIME BUYER Unavailable Unavailable LAROCK, Dylan NEAL TIME BUYER Unavailable Unavailable LAROCK, Dylan NEAL TIME BUYER Unavailable Unavailable LAROCK, Dylan NEAL TIME BUYER Unavailable Unavailable LAROCK, Dylan NEAL TIME BUYER Unavailable Unavailable LAROCK, Dylan NEAL TIME BUYER Unavailable Unavailable LAROCK, Dylan NEAL TIME BUYER Unavailable Unavailable LAROCK, Dylan NEAL TIME BUYER Unavailable Unavailable LAROCK, Dlyan NEAL TIME BUYER Unavailable Unavailable LAROCK, Dylan NEAL TIME BUYER Unavailable Unavailable LAROCK, Dylan NEAL TIME BUYER Unavailable Unavailable LAROCK, Dylan NEAL TIME BUYER Unavailable Unavailable LAROCK, Dylan NEAL TIME BUYER Unavailable Unavailable LAROCK, Dylan NEAL TIME BUYER Unavailable Unavailable LAROCK, Dylan NEAL TIME BUYER Unavailable Unavailable LAROCK, Dylan NEAL TIME BUYER Unavailable Unavailable LAROCK, Dylan NEAL TIME BUYER Unavailable Unavailable Feola, T Guillermina PA Unavailable Unavailable Feola, T Guillermina PA Unavailable Unavailable Feola, T Guillermina PA Unavailable Unavailable Feola, T Guillerimna PA Unavailable Unavailable Feola, T Guillermina PA [...] Unavailable Unavailable Amparo Marquez MD Unavailable Unavailable Amapro Marquez MD Unavailable Unavailable AliAmparo MD Unavailable [...] Unavailable Phan, Toya Yanique PA-C Unavailable Unavailable Hpan, Toya Yanique PA-C Unavailable Unavailable Phan, Toya Yanique PA-C Unavailable Unavailable DESJARLAIS, AWILDA TIME BUYER Unavailable Unavailable DESJARLAIS, AWILDA TIME BUYER Unavailable Unavailable DESJARLAIS, AWILDA TIME BUYER Unavailable Unavailable DESJARLAIS, AWILDA TIME BUYER Unavailable Unavailable DESJARLAIS, AWILDA TIME BUYER Unavailable Unavailable DESJARLAIS, AWILDA TIME BUYER Unavailable Unavailable DESJARLAIS, AWILDA TIME BUYER Unavailable Unavailable DESJARLAIS, AWILDA TIME BUYER Unavailable Unavailable DESJARLAIS, AWILDA TIME BUYER Unavailable Unavailable DESJARLAIS, AWILDA TIME BUYER Unavailable Unavailable Re-disclosure Warning The records that [...] is protected by Article 27-F of the [facility] Public Health law. If you continue you may have access to information: Regarding HIV / AIDS; Provided by facilities licensed or operated by the [facility] Office of Mental Health; or Provided by the [facility] Office for People With Developmental Disabilities. If such information is present, then the following [facility] mandated warning applies: This information has been [...] law may result in a fine or half-way sentence or both. A general authorization for the release of medical or other information is NOT sufficient authorization for further disc losure. Family History Family Member Name Family Member Gender Family Member Status Date o f Status Description Data Source(s) Unknown Unknown Problem [facility] ([facility]) Encounters Encounter Providers Location Date Indications Data Source(s ) Outpatient Attender: Yanique Phan PA-C 01/06 12:40:35 PM EDT - 01/29/2021 01:50:18 PM EDT [facility] ([facility] ) Outpatient Attender: Wang MELO 01/28/20 08:31:49 AM EDT - 01/27/2021 08:58:46 AM EDT [facility] ([facility] ) Outpatient Attender: AWILDA JOHNSON NP 01/24/2021 11: 00:00 AM [facility] Outpatient Attender: Rehana Mcclelland 11:20:00 AM EDT [facility] ([facility] ) Outpatient Attender: AWILDA JOHNSON NP 12/21/2020 01: 00:00 PM [facility] Outpatient Attender: AWILDA JOHNSON NP 11/30/2020 04: 40:00 PM [facility] Outpatient Attender: Amparo Marquez MD Main office - [place] 10/26/2020 02:30:00 PM EDT [facility] ([facility]) Outpatient Attender: AVIS KERN MD Main Office 10/19/2020 02:15:00 PM EDT [facility] ([facility] Outpatient Attender: AWILDA JOHNSON NP 10/05/2020 02: 20:00 PM [facility] Outpatient Attender: AWILDA JOHNSON TIME BUYER 08/25/2020 01: 20:00 PM [facility] Outpatient Attender: AWILDA JOHNSON TIME BUYER 08/02/2020 04: 00:00 PM [facility] Outpatient Attender: KAVON MASTERSON JR Sascha Mcclelland 0 07/14/2020 11:20:00 AM EDT [facility] ([facility] ) Outpatient Attender: AWILDA JOHNSON NP 06/14/2020 08: 28:00 AM [facility] Outpatient Attender: ÁNGEL MUNGUIA NP 05/09 12:32:17 PM [facility] - 06/01/2020 01:26:51 PM EST [facility] ([facility] ) Outpatient Attender: AWILDA JOHNSON NP 05/26/2020 04: 40:00 PM [facility] Outpatient Attender: Guillermina MELO 021 04:42:41 PM [facility] - 05/22/2020 05:29:27 PM EST [facility] ([facility] ) Outpatient Attender: Guillermina MELO 021 04:49:56 PM [facility] - 05/17/2020 05:44:24 PM EST [facility] ([facility] ) Outpatient Attender: AWILDA JOHNSON NP 04/28/2020 04: 40:00 PM [facility] Outpatient Attender: AVIS KERN MD Main Office 04/20/2020 01:15:00 PM EST [facility] ([facility] Outpatient Attender: AWILDA JOHNSON NP 03/16/2020 04: 40:00 PM [facility] Outpatient Attender: AWILDA JOHNSON NP 01/28/2020 04: 40:00 PM [facility] Outpatient Attender: Amparo Marquez MD Main office [facility] 01/28/2020 09:30:00 AM EDT [facility] ([facility]) Outpatient Attender: AVIS KERN MD Main Office 01/27/2020 10:15:00 AM EDT [facility] ([facility]) Immunizations Vaccine Date Status Description Data Source(s) COVID-19 VACCINE Pfizer 07/09/2020 12:00:00 AM EDT completed [facility] Vaccine Series Complete: YESThis Data wa s Submitted to [facility] Via [facility]. COVID-19 VACCINE Pfizer 06/18/2020 12:00:00 AM EST completed [facility] Vaccine Series Complete: NOThis Data was Submitted to [facility] Via [employer]. This CVX code allows reporting of a vacc ination when formulation is unknown (for example, when recording a Influenza vaccination when noted on a vaccination card) 04/14/2020 09:45:00 AM EST completed MEDEN T ([facility]) Medications Medication Brand Name Start Date [...] 01/28/2020 12:00:00 AM EDT ORAL active [facility] ([facility] ) Flonase Allergy Relief Flonase [...] relationship to boyer Policy Boyer Plan Information [facility] 010/510 [id number] HU2 [id number] [employer] BCBS Health Maintenance Organization (HMO) [id number] BC[place] 010/510 [id number] BLUE CROSS [id number] SP [id number] BS Luis Alfredo Trad/MX Medigap Part B [id number] Family Dependent [id number] BS Hodge Trad/MX Commercial [id number] Family Dependent BS Luis Alfredo Trad/MX Commercial [id number] Family Dependent [id number] BC/BS Of [facility] [id number] Family Depende nt BCBS [place] 010/510 [id number] [employer] Commercial Insurance Co. [id number] Spouse [id number] [employer] Commercial Insurance Co. [id number] Spouse [id number] BCBS ..[id number] Blue Cross/Bl ue Shield ..[id number] [place] .[id number] Commercial Insur ance Co. .[id number] [employer] [id number] SPO [id number] [facility] [place] Commercial [id number] Family Dependent [id number] [facility] [place] Commercial [id number] Family Dependent [id number] SELF PAY ONLY 0 SP 0 [employer] [facility] [place] Commercial [id number] Family Dependent [id number] [facility] [place] Commercial [id number] Family Dependent [id number] O UNAVAILABLE UNAVAILA BLE BCBS [place] WATN PPO 302/307 [id number] HU2 [id number] [employer] BCBS B [id number] P D [id number] [place]BS [place] WATN PPO 302/307 [id number] HU2 [id number] BCBS-[place] Ppo Commercial [id number] Family Dependent BS [place] Commercial [id number] Family Dependent BLUE CROSS BLUE SHIELD-O/P [id number] 01 [id number] BCBS EMPIRE URI DIV [id number] HU2 [id number] [facility] [id number] HU2 [id number] [employer] [id number] SPO [id number] [employer] [id number] SPO [id number] BCBS EMPIRE URI DIV [id number] HU2 [id number] UNITED HEALTHCARE [id number] SP [id number] UNITED HEALTHCARE O [id number] S [id number] BCBS EMPIRE URI DIV [id number] HU2 [id number] BCBS OF [place] 010/510 [id number] HU2 [id number] [facility] [place] Commercial [id number] Family Dependent [id number] [facility] [place] Commercial [id number] Family Dependent [id number] Problems, Conditions, and Diagnoses Code Display Name Description Problem Type Effective Dates Data Source(s) G47.00 Insomnia, unspecified INSOMNIA, UNSPECIFIED Diagnosis 12/21/2020 01:00:00 PM [facility] F43.23 Adjustment disorder with mixed anxiety a nd depressed mood ADJUSTMENT DISORDER WITH MIXED ANXIETY AND DEPRESS Diagnosis 11/30/2020 04:40:00 PM [facility] F90.1 Attention-deficit hyperactivity disorder , predominantly hyperactive type ATTN-DEFCT HYPERACTIVITY DISORDER, PREDOM HYPERACT Diagnosis 04:40:00 PM [facility] F41.1 Generalized anxiety disorder GENERALIZED ANXIETY DISOR FOREIGN Diagnosis 11/30/2020 04:40:00 PM [facility] F90.9 Attention-deficit hyperactivity disorder , unspecified type ATTENTION- DEFICIT HYPERACTIVITY DISORDER, UNSPECIFIED TYPE Diagnosis 10/05 02:20:00 PM [facility] Surgeries/Procedures Procedure Description Date Indications Data Source(s) OFFICE OUTPATIENT VISIT 25 MINUTES 12/22/2020 12:00:00 AM EDT [facility] ([facility]) OFFICE OUTPATIENT VISIT 25 MINUTES 10/26/2020 12:00:00 AM EDT [facility] ([facility] ) BRNCDILAT RSPSE SPMTRY PRE&POST-BRNCDILAT ADMN 021 12:00:00 AM EDT [facility] ([facility]) OFFICE OUTPATIENT VISIT 15 MINUTES 10/19/2020 12:00:00 AM EDT [facility] OFFICE OUTPATIENT VISIT 25 MINUTES 07/14/2020 12:00:00 AM EDT [facility] ([facility]) BRNCDILAT RSPSE SPMTRY PRE&POST-BRNCDILAT ADMN 021 [...] of [place]) Results ID Date Data Source [id number] 02/15/2021 01:36:00 AM EST [facility] ([facility]) Name Value Range Interpretation Code Description Data Fidelina rce(s) Supporting Document(s) Gats Culture (Neg Strep SCR) Laboratory test result [facility] ([facility]) FULL REPORT IN LAB NOTES (eCW and [facility] ). NEGATIVE FOR STREP PYOGENES (GROUP A) ID Date Data Source [id number] 02/14/2021 11:43:00 PM EST [facility] ([facility]) Name Value Range Interpretation Code Description Data Fidelina rce(s) Supporting Document(s) Choriogonadotropin.beta subunit [Moles/volume] in Seru m or Plasma Laboratory test result [facility] ([facility] ) <content>QUANTITATIVE RESULT QU ALITATIVE INTERPRETATION</content>
<content> </content>
<content><5.0 IU/L NEGATIVE</content>
<content>5.0 - 25.0 IU/L INDETERMINATE</content>
<content>>25.0 IU/L POSITIVE</content>
<content></content> ID Date Data Source [id number] 02/14/2021 11:40:00 PM EST [facility] ([facility]) Name Value Range Interpretation Code Description Data Fidelina rce(s) Supporting Document(s) Laboratory test finding (navigational concept) 41.0 % 38.0-51.0 [facility] ([facility]) Laboratory test finding (navigational concept) 140 meq/L 136-145 [facility] Laboratory test finding (navigational concept) 83 mg/dL 70-105 [facility] Laboratory test finding (navigational concept) 4.7 mg/dL 4.5-5.3 [facility] Laboratory test finding (navigational concept) 102 meq/L 98-109 [facility] Laboratory test finding (navigational concept) 3.4 meq/L 3.5-5.1 [facility] Laboratory test finding (navigational concept) 6 mg/dL 8-26 [facility] ([facility]) Laboratory test finding (navigational concept) 27.0 MM/L 23.0-27.0 [facility] ([facility]) Laboratory test finding (navigational concept) 0.7 mg/dL 0.6-1.3 [facility] ([facility]) ID Date Data Source [id number] 01/27/2021 08:45:00 AM EDT [facility] Name Value Range Interpretation Code Description Data Fidelina rce(s) Supporting Document(s) SARS-CoV-2 RNA Resp Ql KSENIA+probe NOT DETECTED [facility] This lab was ordered by SAM montoya and reported by SAM Rubalcava. ID Date Data Source [id number] 12/18/2020 08:45:00 AM EDT [facility] ([facility]) Name Value Range Interpretation Code Description Data Fidelina rce(s) Supporting Document(s) Yoselin (Hep2) Laboratory test result [facility]) <content>Negative <1:80</content>
<content>Borderline 1:80</content>
<content>Positive >1:80</content>
<content>ICAP nomenclature: AC-0</content>
<content>For more information about Hep-2 cell patterns use</content>
<content>ANApatterns.org, the official website for the</content>
<content>International Consensus on Antinuclear Antibody (YOSELIN)</content>
<content>Patterns (ICAP).</content>
<content>Performed at: [facility] - [facility]</content>
<content>[address], [place] [id number]</content>
<content>Steaming Cabinet Tender: Dorinda Garcia MD, Phone: [phone]</content>
<content>Performed at: RN - [facility]</content>
<content>[address], [place] [id number]</content>
<content>Steaming Cabinet Tender: Claudia Butterfield MD, Phone: [phone]</content>
<content></content> ID Date Data Source [id number] 12/18/2020 08:45:00 AM EDT [facility] Name Value Range Interpretation Code Description Data Fidelina rce(s) Supporting Document(s) Phosphate [Moles/volume] in Serum or Plasma 2.1 mg/dL 2.5-4.9 [facility] Erythrocyte sedimentation rate by Westergren method 49 mm/hr 0-20 [facility] ([facility]) Magnesium [Moles/volume] in Serum or Plasma 2.3 mg/dL 1.8-2.4 [facility] ([facility]) Creatine kinase [Enzymatic activity/volume] in Serum or Plasma 43 U /L 26-192 [facility] ([facility]) Iron [Mass/volume] in Serum or Plasma 64 ug/dL 50-170 [facility] ([facility]) Calcidiol [Mass/volume] in Serum or Plasma 30.4 ng/mL 30.0-100.0 [facility] ([facility]) Cobalamin (Vitamin B12) [Mass/volume] in Serum or Plasma 432 pg/mL 2 47-911 [facility] ([facility]) VITAMIN B12 NORMAL RANGE NORMAL 247 - 911 PG/ML INDETERMINATE 211 - 246 PG/ML DEFICIENT LESS THAN 211 PG/ML Thyrotropin [Units/volume] in Serum or Plasma by Detec tion limit <= 0.05 mIU/L 3.370 uIU/ML 0.358-3.740 [facility] ([facility] ) Rheumatoid Factor Quant Laboratory test result [facility] ([facility]) C reactive protein [Mass/volume] in Serum or Plasma by High sensitivity method 1.29 mg/dL 0.00-0.30 [facility] ([facility] ) Cyclic citrullinated peptide IgG Ab [Units/volume] in Serum or Plasma 7 units 0-19 [facility] ([facility]) <content>Negative <20</con tent>
<content>Weak positive 20 - 39</content>
<content>Moderate positive 40 - 59</content>
<content>Strong positive >59</content>
<content></content> ID Date Data Source [id number] 06/02/2020 06:16:00 PM EST [facility] Name Value Range Interpretation Code Description Data Fidelina rce(s) Supporting Document(s) BHD COVID-19 RT-PCR NASAL SWAB Not Detected Not Detected [facility] This test has received Emergency Use Aut horization (EUA). We willcontinue to follow federal and state requirements for COVID-19reporting. This test was developed and its performance characteristicsdetermined by [facility] [facility]. It has not been cleared orapproved by [...] agencies as required. ID Date Data Source [id number] 06/01/2020 01:00:00 PM EST [facility] Name Value Range Interpretation Code Description Data Fidelina rce(s) Supporting Document(s) SARS coronavirus 2 RNA [Presence] in Res piratory specimen by KSENIA with probe detection NEGATIVE [facility] This lab was ordered by [facility] and reported by [facility] [facility]. ID Date Data Source [id number] 06/01/2020 12:00:00 AM EST [facility] Name Value Range Interpretation Code Description Data Fidelina rce(s) Supporting Document(s) Carestart Rapid COVID Antigen Test Negative [facility] Katt tohmas. ID Date Data Source [id number] 05/17/2020 12:00:00 AM EST [facility] Name Value Range Interpretation Code Description Data Fidelina rce(s) Supporting Document(s) SARS coronavirus 2 RNA [Presence] in Res piratory specimen by KSENIA with probe detection NEGATIVE [facility] This lab was ordered by [facility] and reported by [employer] [facility]. ID Date Data Source [id number] 05/17/2020 12:00:00 AM EST [facility] Name Value Range Interpretation Code Description Data Fidelina rce(s) Supporting Document(s) Carestart Rapid COVID Antigen Test Negative [facility] This lab was reported by Christel thomas. ID Date Data Source [id number] 04/12/2020 12:24:00 PM EST [facility] ([facility]) Name Value Range Interpretation Code Description Data Fidelina rce(s) Supporting Document(s) Phosphate [Moles/volume] in Serum or Plasma 2.2 mg/dL 2.5-4.9 [facility] ([facility]) Magnesium [Moles/volume] in Serum or Plasma 2.2 mg/dL 1.8-2.4 [facility] ([facility]) Creatine kinase [Enzymatic activity/volume] in Serum or Plasma 63 U /L 26-192 [facility] ([facility]) Cobalamin (Vitamin B12) [Mass/volume] in Serum or Plasma 410 pg/mL 2 47-911 [facility] ([facility]) VITAMIN B12 NORMAL RANGE NORMAL 247 - 911 PG/ML INDETERMINATE 211 - 246 PG/ML DEFICIENT LESS THAN 211 PG/ML Calcidiol [Mass/volume] in Serum or Plasma 47.0 ng/mL 30.0-100.0 [facility] ID Date Data Source [id number] 01/03/2020 08:50:00 PM EDT [facility] ([facility]) Name Value Range Interpretation Code Description Data Fidelina rce(s) Supporting Document(s) Natriuretic peptide.B prohormone N-Terminal [Mass/volu me] in Serum or Plasma 10 pg/mL [facility] ([facility] ) Thyroxine (T4) Ab [Units/volume] in Serum 8.9 ug/dL 4.5-12.0 [facility] ([facility]) Thyrotropin [Units/volume] in Serum or Plasma by Detec tion limit <= 0.05 mIU/L 2.670 uIU/ML 0.358-3.740 [facility] ([facility] ) HCG Serum Qualitative Laboratory test result [facility] ([facility]) Bacteria identified in Blood by Culture Laboratory test result [facility] ([facility]) No growth after 72 hours . All specimens observed for 5 days. Results final at that time. No growth after 48 hours . All specimens observed for 5 days. Results final at that time. No growth after 24 hours . All specimens observed for 5 days. Results final at that time. NO GROWTH AFTER 5 DAYS ID Date Data Source [id number] 01/03/2020 08:50:00 PM EDT [facility] ([facility]) Name Value Range Interpretation Code Description Data Fidelina rce(s) Supporting Document(s) Glucose, Fasting 88 mg/dL 70-100 [facility] ([facility]) Blood Urea Nitrogen 9 mg/dL 7-18 [facility] ([facility]) Creatinine For GFR 0.90 mg/dL 0.55-1.30 [facility] ([facility]) Glomerular Filtration Rate Laboratory test result [facility] <content>Units are mL/min/1.73 m2</content>
<content></content>
<content>Chronic Kidney Disease Staging per NKF:</content>
<content></content>
<content>Stage I & II GFR >=60 Normal to Mildly Decreased</content>
<content>Stage III GFR 30- 59 Moderately Decreased</content>
<content>Stage IV GFR 15-29 Severely Decreased</content>
<content>Stage V GFR <15 Very Little GFR Left</content>
<content>ESRD GFR <15 on BOTTOM PRESSER</content>
<content></content> Sodium Level 137 meq/L 136-145 [facility] ([facility]) Potassium Serum 4.0 meq/L 3.5-5.1 [facility] ([facility]) Carbon Dioxide Level 24 meq/L 21-32 [facility] Anion Gap 6 meq/L 8-16 [facility] ([place] [facility]) Chloride Level 107 meq/L 98-107 [facility] ([facility]) Calcium Level 9.2 mg/dL 8.5-10.1 [facility] ([facility]) ID Date Data Source [id number] 01/03/2020 08:50:00 PM EDT [facility] ([facility]) Name Value Range Interpretation Code Description Data Fidelina rce(s) Supporting Document(s) Alt/SGPT 23 U/L 12-78 [facility] ([place] [facility]) Ast/Sgot 11 U/L 7-37 [facility] ([facility] [place] [facility]) Bilirubin,Direct Laboratory test result 0.0-0.2 [facility] ([facility]) Alkaline Phosphatase 152 U/L 45-117 [facility] ([facility]) Bilirubin,Total 0.2 mg/dL 0.2-1.0 [facility] ([facility]) Total Protein 7.5 GM/DL 6.4-8.2 [facility] ([facility]) Albumin 3.2 GM/DL 3.2-5.2 [facility] ([place] [facility]) Albumin/Globulin Ratio 0.7 1.2-2.2 [facility] ([facility]) ID Date Data Source [id number] 01/03/2020 08:50:00 PM EDT [facility] ([facility]) Name Value Range Interpretation Code Description Data Fidelina rce(s) Supporting Document(s) CPK Creatine Phosphokinase 63 U/L 26-192 [facility] ([facility]) MB/CK Relative Index 1.59 [facility] ([facility]) <content>DIAGNOSIS CRITERIA</content>
<content>MMB ng/ml Relative Index (RI)</content>
<content>NON-AMI < or = 5 N/A</content>
<content>GARSIA ZONE > 5 < or = 4</content>
<content>AMI > 5 > 4</content>
<content></content> Troponin I Laboratory test result [facility] ([place] [place] [facility]) <content>Troponin I Reference Interval f or Siemens [place] LOCI:</content>
<content></content>
<content>99th Percentile= 0.00-0.045 ng/ml</content>
<content></content>
<content>Risk Stratification:</content>
<content><= 0.10 ng/ml Decreased Risk for Adverse Clinical</content>
<content>Events.</content>
<content>0.10-1.50 ng/ml Increased Risk for Adverse Clinical</content>
<content>Events. Evaluation of additional</content>
<content>criterion and/or repeat testing in 2-6</content>
<content>hours is suggested to rule out myocardial</content>
<content>damage.</content>
<content>>= 1.50 ng/ml Indicative of Myocardial Injury.</content>
<content></content> CK-MB Value Mass Laboratory test result [facility] ([place] [facility]) ID Date Data Source [id number] 01/03/2020 08:50:00 PM EDT [facility] ([facility]) Name Value Range Interpretation Code Description Data Fidelina rce(s) Supporting Document(s) Inr 1.13 [facility] ([place] [facility] THERAPUTIC HUMAN INR VALUES INDICATIONS NORMAL RANGES PROPHYLAXIS/TREATMENT OF: VENOUS THROMBOSIS 2.0-3.0 PULMONARY EMBOLISM 2.0-3.0 PREVENTION OF SYSTEMIC EMBOLISM FROM: TISSUE HEART VALVES 2.0-3.0 ACUTE MYOCARDIAL INFARCTION 2.0-3.0 VALVULAR HEART DISEASE 2.0-3.0 ATRIAL FIBRILLATION 2.0-3.0 MECHANICAL VALVES(HIGH RISK) 2.5-3.5 RECURRENT MYOCARDIAL INFARCTION 2.5-3.5 Prothrombin Time 14.7 s 12.5-14.3 [facility] ([facility]) ID Date Data Source [id number] 01/03/2020 08:50:00 PM EDT [facility] ([facility]) Name Value Range Interpretation Code Description Data Fidelina rce(s) Supporting Document(s) White Blood Count 8.9 10 4.0-10.0 [facility] ([facility]) Hemoglobin 13.1 g/dL 12.0-15.5 [facility] ([facility]) Hematocrit 39.6 % 36.0-47.0 [facility] ([place] [facility]) Red Blood Count 4.54 10 4.00-5.40 [facility] ([facility]) Mean Corpuscular Hemoglobin 28.9 pg 27.0-33.0 [place] [facility] ([facility] [place] [facility]) Mean Corpuscular HGB Conc 33.1 g/dL 32.0-36.5 [facility] ([facility] [place] [facility]) Mean Corpuscular Volume 87.2 fl 80.0-96.0 [facility] ([facility] [place] [facility]) Red Cell Distribution Width 13.2 % 11.5-14.5 [place] [facility] ([facility] [place] [facility]) Platelet Count, Automated 411 10 150-450 [facility] ([facility] [place] [facility]) Neutrophils % 66.4 % 36.0-66.0 [facility] ([facility]) [place] % 5.8 % 0.0-5.0 [facility] ([place] [facility]) Lymph % 26.2 % 24.0-44.0 [facility] ([place] [facility]) Eos % 0.9 % 0.0-3.0 [facility] ([place] [facility]) Baso % 0.4 % 0.0-1.0 [facility] [facility] Immature Granulocyte % 0.3 % 0-3.0 [facility] ([facility] [place] [facility]) Neutrophils # 5.9 10 1.5-8.5 [facility] ([facility]) Nucleated Red Blood Cell % 0.0 % 0-0 [facility] ([facility] [place] [facility]) [place] # 0.5 10 0.0-0.8 [facility] ([place] [facility]) Lymph # 2.3 10 1.5-5.0 [facility] ([place] [facility]) Eos # 0.1 10 0.0-0.5 [facility] ([place] [facility]) Baso # 0.0 10 0.0-0.2 [facility] ([place] [facility]) ID Date Data Source [id number] 01/03/2020 08:45:00 PM EDT [facility] ([facility]) Name Value Range Interpretation Code Description Data Fidelina rce(s) Supporting Document(s) Blood Culture Laboratory test result [facility] ([facility] [place] [facility]) No growth after 72 hours . [...] smoked [facility] ([facility] ) Vital Signs ID Date Data Source [id number] Name Value Range Interpretation Code Description Data Source(s) Systolic blood pressure 110 mm[Hg] 110 mm[Hg] M EDENT ([facility]) RT Arm Diastolic blood pressure 80 mm[Hg] 80 mm[Hg] [facility] ([facility] [place] [facility]) RT Arm Heart rate 100 /min 100 /min [facility] ([facility]) Body weight 256.25 [lb_av] 256.25 [lb_av] MEDEN T ([facility]) Body mass index (BMI) [Ratio] 43.6 kg/m2 43.6 k g/m2 [facility] ([facility] [place] [facility]) Body height 64.25 [in_i] 64.25 [in_i] [facility] 5'4.25" Diastolic blood pressure 76 mm[Hg] 76 mm[Hg] [facility] Body mass index (BMI) [Ratio] 43.1 kg/m2 43.1 k g/m2 [facility] Body weight 251.12 [lb_av] 251.12 [lb_av] [facility] T ([facility] Body height 64 [in_i] 64 [in_i] [facility] 5'4" Heart rate 128 /min 128 /min [facility] Respiratory rate 20 /min 20 /min [facility] ( [facility]) Systolic blood pressure 108 mm[Hg] 108 mm[Hg] M EDENT ([facility]) Body weight 254.00 [lb_av] 254.00 [lb_av] MEDEN T ([facility]) Systolic blood pressure 100 mm[Hg] 100 mm[Hg] EDENT ([facility]) Body mass index (BMI) [Ratio] 43.3 kg/m2 43.3 k g/m2 [facility] ([facility] [place] [facility]) Body height 64.25 [in_i] 64.25 [in_i] [facility] ([facility]) 5'4.25" Diastolic blood pressure 60 mm[Hg] 60 mm[Hg] [facility] ([facility] [place] [facility]) Heart rate 114 /min 114 /min [...]
[2021-02-18 22:02] LABS: BASO % 0.3 % (0.0-1.0); EOS # 0.1 10^3/uL (0.0-0.5); EOS % 1.1 % (0.0-3.0); HEMATOCRIT 40.7 % (36.0-47.0); HEMOGLOBIN 13.1 g/dl (12.0-15.5); LYMPH # 2.4 10^3/uL (1.5-5.0); MEAN CORPUSCULAR HGB CONC 32.2 g/dl (32.0-36.5); MEAN CORPUSCULAR VOLUME 90.2 fl (80.0-96.0); MONO # 0.6 10^3/uL (0.0-0.8); MONO % 5.7 % (2.0-8.0); NEUTROPHILS # 7.1 10^3/uL (1.5-8.5); NEUTROPHILS % 69.5 % (36.0-66.0); PLATELET COUNT, AUTOMATED 408 10^3/uL (150-450); RED BLOOD COUNT 4.51 10^6/uL (4.00-5.40); WHITE BLOOD COUNT 10.2 10^3/uL (4.0-10.0)
[2021-02-18 22:26] LABS: INR 1.09; PARTIAL THROMBOPLASTIN TIME 32.5 SECONDS (25.9-37.0); PROTHROMBIN TIME 14.5 SECONDS (12.7-14.5)
[2021-02-18 22:32] LABS: CK-MB VALUE MASS < 1.0 NG/ML (<3.6); CPK CREATINE PHOSPHOKINASE 58 U/L (26-192); MB/CK RELATIVE INDEX 1.72 (< OR =4); TROPONIN I < 0.02 NG/ML (< 0.10)
[2021-02-18] MEDS ORDERED: ISOVUE-370 76% 100ML VIAL As Ordered ONE (22:35)
--- NOTE | 2021-02-18 23:41 | REPVR ---
PROCEDURE INFORMATION: Exam: CTA Chest With Contrast Exam date and time: 02/18/2021 10:50 PM Age: 40 years old Clinical indication: Pain; Chest pressure; Additional info: SOB, pleuritic cp, prior pe TECHNIQUE: Imaging protocol: Computed tomographic angiography of the chest with contrast. 3D rendering (Not supervised by radiologist): MIP and/or 3D reconstructed images were created by the technologist. Radiation optimization: All CT scans at this facility use at least one of these dose optimization techniques: automated exposure control; mA and/or kV adjustment per patient size (includes targeted exams where dose is matched to clinical indication); or iterative reconstruction. Contrast material: ISO 370; Contrast volume: 75 ml; Contrast route: INTRAVENOUS (IV); COMPARISON: CT ANGIO CHEST 03/05/2018 6:36 PM FINDINGS: - PULMONARY ARTERIES: Diameter of the main pulmonary trunk at 21.5 mm is within normal range. Enhancement within the pulmonary arteries is preserved bilaterally through the distal segmental levels, without evidence of acute appearing occlusive pulmonary emboli. Evaluation beyond the distal segmental levels is compromised secondary to suboptimal peripheral contrast bolus and motion related misregistration. - HEART AND AORTA: Cardiac size is at the upper end of normal. Trace amount of pericardial fluid. Evaluation of the aortic root and ascending thoracic aorta is compromised by cardiac motion artifact. No thoracic aortic aneurysm or dissection is seen otherwise. Visualized proximal great vessels within the superior mediastinum are patent. - MEDIASTINUM: No mediastinal soft tissue gas. The visualized thyroid gland is within normal limits. No mediastinal hematoma. Tiny gas containing hiatal hernia. No periesophageal inflammatory change. No mediastinal or hilar lymphadenopathy by size criteria. - LUNGS: The right diaphragm is elevated compared to the left. This may be secondary to underlying hepatic enlargement. Trace amounts of pleural fluid are seen. No pneumothorax. There is no consolidation. A few subpleural reticular opacities are noted which may be secondary to atelectasis and/or parenchymal scarring. No suspicious pulmonary parenchymal mass. No bronchiectasis or peribronchial thickening. - UPPER ABDOMEN: No free air or free fluid within the visualized upper most abdomen. The entire liver is not included. Visualized hepatic length is 19.5 cm. Hepatic attenuation is consistent with steatosis. Surgical clips are seen in the gallbladder fossa. - MSK AND BODY WALL: Mild degenerative changes of the spine and bony thorax. No acute fracture or suspicious bone lesions seen. Mild curvature of the spine may be positional or related to mild scoliosis. - IMPRESSION: No evidence of acute pulmonary embolus through the distal segmental levels. - Trace amounts of pleural fluid bilaterally. - Other incidental findings discussed above. Electronically signed by: Jaswinder Chan On 02/18/2021 23:40:09 PM
[2021-02-19 00:17] LABS: NT-PRO BNP 21 PG/ML (<125)
--- NOTE | 2021-02-19 10:06 | ECGEPIP ---
[facility] - ED Test Date: 2021-02-18 Pat Name: KRISTEN LOVETT Department: Room: - Gender: Female [employer]: CAROLYN : 1980 Requested By: VINCENT Sánchez PA-C Order Number: [id number] Reading MD: Anthony Frias Measurements Intervals [place] Rate: 101 P: 52 CT: 152 QRS: 4 QRSD: 80 T: 56 QT: 350 QTc: 453 Interpretive Statements Sinus tachycardia Possible Inferior infarct , age undetermined SIMILAR TO 02/14/21 Electronically Signed on 02-19-2021 10:05:43 EST by Anthony Frias
== END 2021-02-19 00:28 | disposition home or self-care (01) ==
LOC: M ED 19:49
DX: R06.02 Shortness of breath (principal); J45.909 Unspecified asthma, uncomplicated; Z86.718 Personal history of other venous thrombosis and embolism; E03.9 Hypothyroidism, unspecified; Z92.89 Personal history of other medical treatment; Z88.1 Allergy status to other antibiotic agents; Z88.8 Allergy status to other drugs, medicaments and biological substances; Z79.899 Other long term (current) drug therapy
CPT/HCPCS: 36415; 71275; 80047; 82550; 82553; 83880; 84484; 84702; 85025; 85610; 85730; 93005; 93041; 94760; 99284; Q9967

== ENCOUNTER → 2021-04-23 | Outpatient (CLI) | payer BC, OTHER ==
[~2021-04-23] MED LIST changes: -OMEP-221 OR; +OMEP40CA5 OR
== END ==
LOC: M WUC 12:27
PROVIDERS: ATTEND Internal Medicine
DX: M06.4 Inflammatory polyarthropathy (principal)

== ENCOUNTER 2021-09-04 08:57 | Emergency (ER) | payer BC, OTHER ==
[~2021-09-04] VITALS: Ht 162.6 cm; Wt 116.5 kg
[~2021-09-04 08:57] MED LIST changes: +ALBU2.5V10 INH; -ALBU83IN INH; +CHOL4POW15 PO; -CHOL4POW4 PO
[2021-09-04] MEDS ORDERED: NS 1,000 ML IV ONE (09:25)
[2021-09-04] MEDS ORDERED: ONDANSETRON 4MG/2ML VIAL IV ONE (09:25)
[2021-09-04] MEDS ORDERED: MORPHINE 2 MG/ML 1ML VIAL IV ONE (09:25)
[2021-09-04 09:49] LABS: BASO % 0.4 % (0.0-1.0); EOS # 0.1 10^3/uL (0.0-0.5); EOS % 0.9 % (0.0-3.0); HEMATOCRIT 41.3 % (36.0-47.0); HEMOGLOBIN 13.7 g/dl (12.0-15.5); LYMPH # 1.8 10^3/uL (1.5-5.0); LYMPH % 25.6 % (24.0-44.0); MEAN CORPUSCULAR HEMOGLOBIN 29.5 pg (27.0-33.0); MEAN CORPUSCULAR HGB CONC 33.2 g/dl (32.0-36.5); MONO # 0.5 10^3/uL (0.0-0.8); MONO % 7.3 % (2.0-8.0); NEUTROPHILS # 4.6 10^3/uL (1.5-8.5); NEUTROPHILS % 65.7 % (36.0-66.0); PLATELET COUNT, AUTOMATED 351 10^3/uL (150-450); RED BLOOD COUNT 4.64 10^6/uL (4.00-5.40)
[2021-09-04] MEDS ORDERED: ISOVUE-370 76% 100ML VIAL As Ordered ONE (11:17)
[2021-09-04 11:33] LABS: ALBUMIN 3.3 GM/DL (3.2-5.2); ALT/SGPT 19 U/L (12-78); BILIRUBIN,DIRECT < 0.1 MG/DL (0.0-0.2); BILIRUBIN,TOTAL 0.3 MG/DL (0.2-1.0); LIPASE 92 U/L (73-393); TOTAL PROTEIN 7.3 GM/DL (6.4-8.2)
[2021-09-04 12:28] VITALS: BP 113/56
== END 2021-09-04 12:46 | disposition home or self-care (01) ==
LOC: M ED 08:57
DX: K35.890 Other acute appendicitis without perforation or gangrene (principal); F43.10 Post-traumatic stress disorder, unspecified; M06.9 Rheumatoid arthritis, unspecified; K58.9 Irritable bowel syndrome, unspecified; G43.909 Migraine, unspecified, not intractable, without status migrainosus; Z87.442 Personal history of urinary calculi; Z88.1 Allergy status to other antibiotic agents; Z88.5 Allergy status to narcotic agent; Z79.899 Other long term (current) drug therapy
CPT/HCPCS: 74177; 80047; 80076; 81001; 83605; 83690; 84702; 85025; 87086; 96361; 96374; 99284; J2270; Q9967

== ENCOUNTER 2022-02-13 20:42 | Emergency (ER) | payer BC, OTHER ==
[~2022-02-13] VITALS: Ht 162.6 cm; Wt 110.5 kg
[~2022-02-13 20:42] MED LIST changes: -CHOL4POW15 PO; +CHOL4POW26 PO; -DOXY-342 PO; +DOXY100C81 PO
[2022-02-13] MEDS ORDERED: ARNU1INH3 INH (20:58)
[2022-02-13] MEDS ORDERED: ADDE20CA3 PO (20:58)
[2022-02-13] MEDS ORDERED: MOTR200T44 PO (20:58)
[2022-02-13] MEDS ORDERED: OSELTAMIVIR PHOSPHATE 75 MG CAP (TAMIFLU) PO ONE (23:15)
[2022-02-13] MEDS ORDERED: OSEL75CA PO (23:16)
[2022-02-13 23:34] VITALS: BP 109/59
== END 2022-02-13 23:35 | disposition home or self-care (01) ==
LOC: M ED 20:42
DX: J09.X2 Influenza due to identified novel influenza A virus with other respiratory manifestations (principal); G43.909 Migraine, unspecified, not intractable, without status migrainosus; F43.10 Post-traumatic stress disorder, unspecified; J45.909 Unspecified asthma, uncomplicated; M06.9 Rheumatoid arthritis, unspecified; K21.9 Gastro-esophageal reflux disease without esophagitis; Z88.1 Allergy status to other antibiotic agents; Z88.5 Allergy status to narcotic agent; Z79.82 Long term (current) use of aspirin; Z79.899 Other long term (current) drug therapy

== ENCOUNTER → 2022-03-22 | Outpatient (REF) | payer OTHER ==
[~2022-03-22] MED LIST changes: +ADDE20CA3 PO; +ARNU1INH3 INH; +MOTR200T44 PO; +OSEL75CA PO
== END ==
LOC: M SFHCRHEU 12:04
PROVIDERS: ATTEND Internal Medicine
DX: Z53.20 Procedure and treatment not carried out because of patient's decision for unspecified reasons (principal)

== ENCOUNTER → 2022-07-16 | Outpatient (CLI) | payer BC, OTHER ==
[~2022-07-16] MED LIST changes: +MONT-5 PO; -SING10TA32 PO
[2022-07-16 15:31] LABS: ALBUMIN 3.1 G/DL (3.2-5.2); ALKALINE PHOSPHATASE 132 U/L (46-116); ALT/SGPT 14 U/L (7.0-40); AST/SGOT 12 U/L (<34); BILIRUBIN,DIRECT < 0.1 MG/DL (<0.4); BILIRUBIN,TOTAL 0.2 MG/DL (0.3-1.2); BLOOD UREA NITROGEN 5 MG/DL (9-23); CALCIUM LEVEL 8.4 MG/DL (8.5-10.1); CARBON DIOXIDE LEVEL 29 MMOL/L (20-31); CHLORIDE LEVEL 103 MMOL/L (98-107); CREATININE FOR GFR 0.75 MG/DL (0.55-1.30); GLOMERULAR FILTRATION RATE > 60.0 (>58); GLUCOSE, FASTING 86 MG/DL (60-100); POTASSIUM SERUM 3.8 MMOL/L (3.5-5.1); SODIUM LEVEL 138 MMOL/L (136-145); TOTAL PROTEIN 6.5 G/DL (5.7-8.2)
[2022-07-16 15:33] LABS: TOTAL 25(OH) VITAMIN D 30.1 NG/ML (20.0-100.0)
[2022-07-16 15:35] LABS: BASO # 0.1 10^3/uL (0.0-0.2); BASO % 0.7 % (0.0-1.0); EOS # 0.1 10^3/uL (0.0-0.5); EOS % 1.5 % (0.0-3.0); HEMATOCRIT 40.9 % (36.0-47.0); HEMOGLOBIN 12.9 g/dl (12.0-15.5); LYMPH # 2.4 10^3/uL (1.5-5.0); LYMPH % 36.3 % (24.0-44.0); MEAN CORPUSCULAR HEMOGLOBIN 29.9 pg (27.0-33.0); MEAN CORPUSCULAR HGB CONC 31.5 g/dl (32.0-36.5); MEAN CORPUSCULAR VOLUME 94.9 fl (80.0-96.0); MONO # 0.5 10^3/uL (0.0-0.8); MONO % 6.7 % (2.0-8.0); NEUTROPHILS # 3.7 10^3/uL (1.5-8.5); NEUTROPHILS % 54.5 % (36.0-66.0); PLATELET COUNT, AUTOMATED 386 10^3/uL (150-450); RED BLOOD COUNT 4.31 10^6/uL (4.00-5.40); WHITE BLOOD COUNT 6.7 10^3/uL (4.0-10.0)
[2022-07-16 15:50] LABS: ERYTHROCYTE SEDIMENTATION RATE 58 mm/hr (0-20)
== END ==
LOC: M PLALAB 12:56
PROVIDERS: ATTEND Internal Medicine
DX: Z79.899 Other long term (current) drug therapy (principal); M06.00 Rheumatoid arthritis without rheumatoid factor, unspecified site

== ENCOUNTER → 2022-07-25 | Outpatient (REF) | payer BC, OTHER ==
[~2022-07-25] MED LIST changes: +ACET1TAB55 PO; +ADDE30CA3 PO; +AIMO70IN2 PO; +BUSP5TA PO; +CETI10CH PO; +DICY20TA20 PO; +HYDR-3713 PO; +HYDR200T3 PO; +ONDA-83 PO; -RISP-7 OR; +RISP-7 PO
== END ==
LOC: M SFHCWAGY 17:47
PROVIDERS: ATTEND Nurse Practitioner Family
DX: Z12.4 Encounter for screening for malignant neoplasm of cervix (principal)
CPT/HCPCS: 87624; G0123

== ENCOUNTER → 2022-07-25 | Outpatient (CLI) | payer BC, OTHER | LOC: M WHC 11:47 | PROVIDERS: ATTEND Nurse Practitioner Family | DX: Z12.31 Encounter for screening mammogram for malignant neoplasm of breast (principal) ==

== ENCOUNTER 2022-07-29 14:08 | Inpatient (IN) | payer BC, OTHER ==
[~2022-07-29] VITALS: Ht 162.6 cm; Wt 112.9 kg
[~2022-07-29 14:08] MED LIST changes: -ACET1TAB55 PO; -ADDE30CA3 PO; -AIMO70IN2 PO; -BUSP5TA PO; -CETI10CH PO; -DICY20TA20 PO; -HYDR-3713 PO; -HYDR200T3 PO; -ONDA-83 PO
[2022-07-29] MEDS ORDERED: oxyCODONE 5MG TAB PO PRN (17:50)
[2022-07-29] MEDS: LR 1,000 ML IV SCH ×2 (17:50→20:30)
[2022-07-29] MEDS ORDERED: ONDANSETRON 4MG 2ML VIAL IV PRN ×2 (17:50→21:10)
[2022-07-29] MEDS ORDERED: LR 1,000 ML IV SCH (17:50)
[2022-07-29] MEDS ORDERED: fentaNYL 100 MCG/2 ML INJECTION IV PRN (17:50)
[2022-07-29] MEDS ORDERED: LIDOCAINE 1% SDV 5ML VIAL SC PRN (17:50)
[2022-07-29] MEDS ORDERED: MORPHINE 4 MG/ML 1ML VIAL IV ONE (17:55)
[2022-07-29] MEDS ORDERED: ONDANSETRON 4MG 2ML VIAL IV ONE (17:55)
[2022-07-29] MEDS ORDERED: NS 1,000 ML IV SCH (17:55)
[2022-07-29 18:48] LABS: HEMATOCRIT 39.4 % (36.0-47.0); HEMOGLOBIN 12.8 g/dl (12.0-15.5); MEAN CORPUSCULAR HEMOGLOBIN 30.1 pg (27.0-33.0); MEAN CORPUSCULAR HGB CONC 32.5 g/dl (32.0-36.5); MEAN CORPUSCULAR VOLUME 92.7 fl (80.0-96.0); PLATELET COUNT, AUTOMATED 399 10^3/uL (150-450); RED BLOOD COUNT 4.25 10^6/uL (4.00-5.40); WHITE BLOOD COUNT 11.6 10^3/uL (4.0-10.0)
[2022-07-29] MEDS ORDERED: ALBUTEROL SULFATE 2.5MG/0.5ML INH NEB SOLN INH PRN (18:50)
[2022-07-29 19:13] LABS: BLOOD UREA NITROGEN 6 MG/DL (9-23); CALCIUM LEVEL 8.5 MG/DL (8.5-10.1); CARBON DIOXIDE LEVEL 26 MMOL/L (20-31); CHLORIDE LEVEL 108 MMOL/L (98-107); CREATININE FOR GFR 0.77 MG/DL (0.55-1.30); GLOMERULAR FILTRATION RATE > 60.0 (>58); GLUCOSE, FASTING 95 MG/DL (60-100); POTASSIUM SERUM 4.6 MMOL/L (3.5-5.1); SODIUM LEVEL 138 MMOL/L (136-145)
[2022-07-29 19:16] LABS: INR 0.98; PARTIAL THROMBOPLASTIN TIME 28.5 SECONDS (24.8-34.2); PROTHROMBIN TIME 13.2 SECONDS (12.5-14.5)
[2022-07-29] MEDS ORDERED: HYDR-3713 PO (19:18)
[2022-07-29] MEDS ORDERED: ACET1TAB55 PO (19:18)
[2022-07-29] MEDS ORDERED: CETI10CH PO (19:18)
[2022-07-29] MEDS ORDERED: ONDA-83 PO (19:18)
[2022-07-29] MEDS ORDERED: ONDA4TAB6 PO (19:18)
[2022-07-29] MEDS ORDERED: ADDE30CA3 PO (19:18)
[2022-07-29] MEDS ORDERED: DICY20TA20 PO (19:22)
[2022-07-29] MEDS ORDERED: BUSP5TA PO (19:22)
[2022-07-29] MEDS ORDERED: HYDR200T3 PO (19:22)
[2022-07-29] MEDS ORDERED: AIMO70IN2 PO (19:22)
[2022-07-29] MEDS ORDERED: HOME MED LIST COMPLETE! XX SCH (19:25)
[2022-07-29 20:30] VITALS: BP 125/76
[2022-07-29 20:44] VITALS: BP 124/84
[2022-07-29] MEDS ORDERED: DOCUSATE SODIUM 100MG CAPSULE PO PRN (21:10)
[2022-07-29] MEDS ORDERED: ACETAMINOPHEN TAB 650MG DOSE (2X325MG) PO PRN (21:10)
[2022-07-29] MEDS ORDERED: carisoprodoL 350 MG TAB PO PRN (21:10)
[2022-07-29] MEDS: MORPHINE 2 MG/ML 1ML VIAL IV PRN (22:23)
[2022-07-29] MEDS ORDERED: NORCO, ANEXSIA 5/325MG TABLET (HYDROcodone/ACETAMINOPHEN) PO PRN (22:35)
[2022-07-30] MEDS: buPROPion **SR TABLET** (ZYBAN) 150MG PO SCH ×3 (00:42→21:08)
[2022-07-30] MEDS: traZODone 100 MG TAB PO SCH ×2 (00:43→21:08)
[2022-07-30] MEDS: FAMOTIDINE 20 MG TAB PO SCH ×2 (00:43→21:08)
[2022-07-30] MEDS: clonazePAM 0.5 MG TAB PO SCH ×3 (00:43→21:08)
[2022-07-30] MEDS: risperiDONE 0.5 MG TAB PO SCH ×4 (00:44→21:11)
[2022-07-30] MEDS: busPIRone 10 MG TAB PO SCH ×3 (00:44→21:08)
[2022-07-30] MEDS: MORPHINE 2 MG/ML 1ML VIAL IV PRN ×2 (02:39→08:46)
[2022-07-30] MEDS ORDERED: KETOROLAC 30 MG/ML 1ML VIAL IV ONE (04:00)
[2022-07-30 05:45] VITALS: BP 107/69
[2022-07-30] MEDS: LR 1,000 ML IV SCH ×2 (05:54→21:07)
[2022-07-30 06:14] LABS: HEMATOCRIT 35.6 % (36.0-47.0); HEMOGLOBIN 11.6 g/dl (12.0-15.5); MEAN CORPUSCULAR HEMOGLOBIN 30.2 pg (27.0-33.0); MEAN CORPUSCULAR HGB CONC 32.6 g/dl (32.0-36.5); MEAN CORPUSCULAR VOLUME 92.7 fl (80.0-96.0); PLATELET COUNT, AUTOMATED 341 10^3/uL (150-450); RED BLOOD COUNT 3.84 10^6/uL (4.00-5.40); WHITE BLOOD COUNT 8.2 10^3/uL (4.0-10.0)
[2022-07-30 06:39] LABS: BLOOD UREA NITROGEN < 5 MG/DL (9-23); CALCIUM LEVEL 7.9 MG/DL (8.5-10.1); CARBON DIOXIDE LEVEL 25 MMOL/L (20-31); CHLORIDE LEVEL 107 MMOL/L (98-107); CREATININE FOR GFR 0.67 MG/DL (0.55-1.30); GLOMERULAR FILTRATION RATE > 60.0 (>58); GLUCOSE, FASTING 99 MG/DL (60-100); POTASSIUM SERUM 4.6 MMOL/L (3.5-5.1); SODIUM LEVEL 138 MMOL/L (136-145)
[2022-07-30] MEDS ORDERED: NS 1,000 ML IV SCH (08:45)
[2022-07-30] MEDS: HYDROXYCHLOROQUINE 200 MG TAB PO SCH (08:46)
[2022-07-30] MEDS ORDERED: buPROPion **SR TABLET** (ZYBAN) 150MG PO SCH (09:00)
[2022-07-30] MEDS ORDERED: oxyCODONE 5MG TAB PO PRN (09:35)
[2022-07-30] MEDS ORDERED: BUPIVACAINE/EPIN 0.25% 30ML VIAL As Ordered ONE (13:46)
[2022-07-30 14:00] VITALS: BP 107/67
[2022-07-30] MEDS: MULTIVITAMINS/MINERALS THERAP 1 TAB PO SCH (15:13)
[2022-07-30] MEDS ORDERED: MIDAZOLAM INJ 2MG/2ML VIAL As Ordered ONE (15:59)
[2022-07-30] MEDS ORDERED: ONDANSETRON 4MG 2ML VIAL As Ordered ONE (15:59)
[2022-07-30] MEDS ORDERED: LIDOCAINE 2% 100MG/5ML SDV (FOR ANES.) As Ordered ONE (15:59)
[2022-07-30] MEDS ORDERED: propofoL 200 MG/20 ML VIAL As Ordered ONE ×2 (15:59→17:27)
[2022-07-30] MEDS ORDERED: KETOROLAC 60MG 2ML VIAL As Ordered ONE (15:59)
[2022-07-30] MEDS ORDERED: fentaNYL 100 MCG/2 ML INJECTION As Ordered ONE (15:59)
[2022-07-30] MEDS ORDERED: ROPIvacaine 0.5% 30ML VIAL PN ONE (16:00)
[2022-07-30] MEDS ORDERED: EPINEPHrine INJ 1 MG/ML 1ML AMP PN ONE (16:00)
[2022-07-30] MEDS ORDERED: fentaNYL 100 MCG/2 ML INJECTION IV PRN ×2 (16:00→17:35)
[2022-07-30] MEDS ORDERED: LIDOCAINE 1% SDV 5ML VIAL PN ONE (16:00)
[2022-07-30] MEDS ORDERED: MIDAZOLAM INJ 2MG/2ML VIAL IV PRN (16:00)
[2022-07-30] MEDS ORDERED: ROCURONIUM BROMIDE 50MG/5ML VIAL As Ordered ONE (16:17)
[2022-07-30] MEDS ORDERED: ceFAZolin 1GM VIAL As Ordered ONE (16:30)
[2022-07-30] MEDS ORDERED: LABETALOL 100MG/20ML VIAL As Ordered ONE (16:47)
[2022-07-30] MEDS ORDERED: HYDROmorphone HCL 2MG/ML 1ML VIAL As Ordered ONE (17:28)
[2022-07-30] MEDS ORDERED: SUGAMMADEX SODIUM 500 MG/5 ML VIAL (BRIDION) As Ordered ONE (17:28)
[2022-07-30] MEDS ORDERED: MORPHINE 2 MG/ML 1ML VIAL IV PRN (17:35)
[2022-07-30] MEDS ORDERED: LR 1,000 ML IV SCH (17:35)
[2022-07-30] MEDS ORDERED: ONDANSETRON 4MG 2ML VIAL IV PRN (17:35)
[2022-07-30] MEDS ORDERED: SENNA 8.6 MG TAB (SENOKOT) PO PRN (17:50)
[2022-07-30] MEDS ORDERED: MORPHINE 4 MG/ML 1ML VIAL IV PRN (17:50)
[2022-07-30] MEDS: ONDANSETRON 4MG 2ML VIAL IV PRN (19:05)
[2022-07-30 19:37] VITALS: BP 113/64
[2022-07-30 20:39] VITALS: BP 111/66
[2022-07-30] MEDS: CETIRIZINE (ZyrTEC) 10 MG TAB PO SCH (21:08)
[2022-07-30] MEDS: RIVAROXABAN 20MG TAB (XARELTO) PO SCH (21:10)
[2022-07-30] MEDS: traMADol 50 MG TAB PO PRN (21:10)
[2022-07-30] MEDS: DOCUSATE SODIUM 100MG CAPSULE PO SCH (21:10)
[2022-07-30] MEDS: NYSTATIN 100,000 UNITS/GM TOPICAL PWD 15GM TOP SCH (21:23)
[2022-07-30] MEDS: MAALOX 30 ML SUSP *UDC PO PRN (22:06)
[2022-07-30 22:40] VITALS: BP 106/77
[2022-07-31 00:06] VITALS: BP 96/68
[2022-07-31] MEDS: LR 1,000 ML IV SCH ×3 (01:25→21:20)
[2022-07-31] MEDS: ceFAZolin SOD 2 GM in IV 1 EA IV SCH ×3 (01:27→17:19)
[2022-07-31 01:38] VITALS: BP 100/70
[2022-07-31] MEDS: ONDANSETRON 4MG 2ML VIAL IV PRN ×3 (01:46→22:36)
[2022-07-31] MEDS: ACETAMINOPHEN TAB 650MG DOSE (2X325MG) PO PRN ×2 (01:51→14:11)
[2022-07-31 05:23] VITALS: BP 99/67
[2022-07-31 06:23] LABS: HEMATOCRIT 34.9 % (36.0-47.0); HEMOGLOBIN 11.3 g/dl (12.0-15.5); MEAN CORPUSCULAR HEMOGLOBIN 30.3 pg (27.0-33.0); MEAN CORPUSCULAR HGB CONC 32.4 g/dl (32.0-36.5); MEAN CORPUSCULAR VOLUME 93.6 fl (80.0-96.0); PLATELET COUNT, AUTOMATED 364 10^3/uL (150-450); RED BLOOD COUNT 3.73 10^6/uL (4.00-5.40); WHITE BLOOD COUNT 9.5 10^3/uL (4.0-10.0)
[2022-07-31 06:41] LABS: BLOOD UREA NITROGEN 6 MG/DL (9-23); CALCIUM LEVEL 8.3 MG/DL (8.5-10.1); CARBON DIOXIDE LEVEL 26 MMOL/L (20-31); CHLORIDE LEVEL 106 MMOL/L (98-107); CREATININE FOR GFR 0.58 MG/DL (0.55-1.30); GLOMERULAR FILTRATION RATE > 60.0 (>58); GLUCOSE, FASTING 114 MG/DL (60-100); POTASSIUM SERUM 4.4 MMOL/L (3.5-5.1); SODIUM LEVEL 139 MMOL/L (136-145)
[2022-07-31] MEDS ORDERED: PANTOPRAZOLE 40MG TAB (PROTONIX) PO SCH (09:00)
[2022-07-31] MEDS: MULTIVITAMINS/MINERALS THERAP 1 TAB PO SCH (09:55)
[2022-07-31] MEDS: risperiDONE 0.5 MG TAB PO SCH ×3 (09:56→21:19)
[2022-07-31] MEDS: DOCUSATE SODIUM 100MG CAPSULE PO SCH ×2 (09:56→21:19)
[2022-07-31] MEDS: HYDROXYCHLOROQUINE 200 MG TAB PO SCH (09:56)
[2022-07-31] MEDS: clonazePAM 0.5 MG TAB PO SCH ×2 (09:56→17:19)
[2022-07-31] MEDS: busPIRone 10 MG TAB PO SCH ×2 (09:56→17:20)
[2022-07-31] MEDS: traMADol 50 MG TAB PO PRN ×2 (09:57→21:25)
[2022-07-31] MEDS: NYSTATIN 100,000 UNITS/GM TOPICAL PWD 15GM TOP SCH ×2 (09:58→21:19)
[2022-07-31 10:00] VITALS: BP 132/77
[2022-07-31] MEDS: OMEPRAZOLE 20MG CAP PO SCH ×2 (11:17→21:18)
[2022-07-31] MEDS: buPROPion **SR TABLET** (ZYBAN) 150MG PO SCH ×2 (11:17→17:19)
[2022-07-31] MEDS: RIVAROXABAN 20MG TAB (XARELTO) PO SCH (17:19)
[2022-07-31] MEDS: traZODone 100 MG TAB PO SCH (21:18)
[2022-07-31] MEDS: CETIRIZINE (ZyrTEC) 10 MG TAB PO SCH (21:19)
[2022-07-31] MEDS: MAALOX 30 ML SUSP *UDC PO PRN (22:32)
[2022-07-31] MEDS ORDERED: clonazePAM 0.5 MG TAB PO ONE (23:35)
[2022-08-01 05:08] VITALS: BP 101/66
[2022-08-01] MEDS: traMADol 50 MG TAB PO PRN (05:16)
[2022-08-01] MEDS: busPIRone 10 MG TAB PO SCH ×2 (08:20→16:57)
[2022-08-01] MEDS: OMEPRAZOLE 20MG CAP PO SCH ×2 (08:20→21:08)
[2022-08-01] MEDS: MULTIVITAMINS/MINERALS THERAP 1 TAB PO SCH (08:20)
[2022-08-01] MEDS: DOCUSATE SODIUM 100MG CAPSULE PO SCH ×2 (08:21→20:48)
[2022-08-01] MEDS: buPROPion **SR TABLET** (ZYBAN) 150MG PO SCH ×2 (08:21→16:57)
[2022-08-01] MEDS: HYDROXYCHLOROQUINE 200 MG TAB PO SCH (08:21)
[2022-08-01] MEDS: ONDANSETRON 4MG 2ML VIAL IV PRN ×2 (08:22→18:11)
[2022-08-01] MEDS: NYSTATIN 100,000 UNITS/GM TOPICAL PWD 15GM TOP SCH ×2 (08:50→21:08)
[2022-08-01] MEDS: ACETAMINOPHEN TAB 650MG DOSE (2X325MG) PO PRN ×2 (08:50→19:30)
[2022-08-01] MEDS: risperiDONE 0.5 MG TAB PO SCH ×3 (09:40→21:08)
[2022-08-01] MEDS: clonazePAM 0.5 MG TAB PO SCH ×2 (09:40→16:57)
[2022-08-01] MEDS: RIVAROXABAN 20MG TAB (XARELTO) PO SCH (16:58)
[2022-08-01] MEDS: NORCO, ANEXSIA 5/325MG TABLET (HYDROcodone/ACETAMINOPHEN) PO PRN (17:42)
[2022-08-01] MEDS: CETIRIZINE (ZyrTEC) 10 MG TAB PO SCH (21:08)
[2022-08-01] MEDS: traZODone 100 MG TAB PO SCH (21:08)
[2022-08-02] MEDS: NORCO, ANEXSIA 5/325MG TABLET (HYDROcodone/ACETAMINOPHEN) PO PRN ×2 (02:00→10:40)
[2022-08-02] MEDS: ONDANSETRON 4MG 2ML VIAL IV PRN (02:31)
[2022-08-02 06:00] VITALS: BP 129/79
[2022-08-02] MEDS: ACETAMINOPHEN TAB 650MG DOSE (2X325MG) PO PRN (06:19)
[2022-08-02] MEDS: DOCUSATE SODIUM 100MG CAPSULE PO SCH ×2 (09:00→09:44)
[2022-08-02] MEDS: risperiDONE 0.5 MG TAB PO SCH (09:43)
[2022-08-02] MEDS: buPROPion **SR TABLET** (ZYBAN) 150MG PO SCH (09:43)
[2022-08-02] MEDS: clonazePAM 0.5 MG TAB PO SCH (09:43)
[2022-08-02] MEDS: OMEPRAZOLE 20MG CAP PO SCH (09:43)
[2022-08-02] MEDS: MULTIVITAMINS/MINERALS THERAP 1 TAB PO SCH (09:43)
[2022-08-02] MEDS: HYDROXYCHLOROQUINE 200 MG TAB PO SCH (09:44)
[2022-08-02] MEDS: NYSTATIN 100,000 UNITS/GM TOPICAL PWD 15GM TOP SCH (09:44)
[2022-08-02] MEDS: busPIRone 10 MG TAB PO SCH (09:44)
[2022-08-02] MEDS ORDERED: ONDANSETRON 4MG ORAL DISINTEGRATING TAB PO PRN (10:00)
[2022-08-02] MEDS ORDERED: SENN18TA PO (13:09)
== END 2022-08-02 15:05 | disposition home health service (06) | DRG 313 ==
LOC: M ED 14:08 → M ED INP 18:48 → M MS5PR 20:30
PROVIDERS: ADMIT Family Medicine; ATTEND Family Medicine
PROC: 0QSJ04Z Reposition Right Fibula with Internal Fixation Device, Open Approach (ICD-10-PCS; principal; 2022-07-30 12:30)
DX: S82.841A Displaced bimalleolar fracture of right lower leg, initial encounter for closed fracture (principal); Z68.41 Body mass index [BMI] 40.0-44.9, adult; E66.01 Morbid (severe) obesity due to excess calories; E03.9 Hypothyroidism, unspecified; F90.9 Attention-deficit hyperactivity disorder, unspecified type; G47.33 Obstructive sleep apnea (adult) (pediatric); J45.909 Unspecified asthma, uncomplicated; M06.00 Rheumatoid arthritis without rheumatoid factor, unspecified site; Z79.01 Long term (current) use of anticoagulants; G43.909 Migraine, unspecified, not intractable, without status migrainosus; Z86.711 Personal history of pulmonary embolism; Z88.8 Allergy status to other drugs, medicaments and biological substances; Z88.5 Allergy status to narcotic agent; Z88.0 Allergy status to penicillin; Z79.899 Other long term (current) drug therapy; W10.8XXA Fall (on) (from) other stairs and steps, initial encounter; Y92.009 Unspecified place in unspecified non-institutional (private) residence as the place of occurrence of the external cause

== ENCOUNTER → 2022-08-05 | Outpatient (CLI) | payer BC, OTHER ==
[~2022-08-05] MED LIST changes: +ACET1TAB55 PO; +ADDE30CA3 PO; +AIMO70IN2 PO; +BUSP5TA PO; +CETI10CH PO; +DICY20TA20 PO; +DOXY-443 PO; +HYDR-3713 PO; +HYDR200T3 PO; +NEUR300C PO; +ONDA-83 PO; +SENN18TA PO; +VALA1TAB5 PO
== END ==
LOC: M SOG 07:56
PROVIDERS: ATTEND Orthopaedic Surgery
DX: Z47.89 Encounter for other orthopedic aftercare (principal)

== ENCOUNTER 2022-08-07 19:37 | Emergency (ER) | payer BC, OTHER ==
[~2022-08-07] VITALS: Ht 162.6 cm; Wt 111.4 kg
[~2022-08-07 19:37] MED LIST changes: -DOXY-443 PO; -NEUR300C PO; -VALA1TAB5 PO
[2022-08-07] MEDS ORDERED: ACETAMINOPHEN 325 MG TAB PO ONE (20:05)
[2022-08-07] MEDS ORDERED: GABAPENTIN 300 MG CAP PO ONE (21:05)
[2022-08-07] MEDS ORDERED: NS 1,000 ML IV ONE (21:05)
[2022-08-07] MEDS ORDERED: NORCO, ANEXSIA 5/325MG TABLET (HYDROcodone/ACETAMINOPHEN) PO ONE (21:10)
[2022-08-07 22:32] LABS: BASO % 0.5 % (0.0-1.0); EOS # 0.1 10^3/uL (0.0-0.5); EOS % 0.8 % (0.0-3.0); HEMATOCRIT 38.3 % (36.0-47.0); HEMOGLOBIN 12.7 g/dl (12.0-15.5); LYMPH # 1.7 10^3/uL (1.5-5.0); LYMPH % 22.6 % (24.0-44.0); MEAN CORPUSCULAR HEMOGLOBIN 30.4 pg (27.0-33.0); MEAN CORPUSCULAR HGB CONC 33.2 g/dl (32.0-36.5); MEAN CORPUSCULAR VOLUME 91.6 fl (80.0-96.0); MONO # 0.9 10^3/uL (0.0-0.8); MONO % 12.2 % (2.0-8.0); NEUTROPHILS # 4.7 10^3/uL (1.5-8.5); NEUTROPHILS % 63.5 % (36.0-66.0); PLATELET COUNT, AUTOMATED 410 10^3/uL (150-450); RED BLOOD COUNT 4.18 10^6/uL (4.00-5.40); WHITE BLOOD COUNT 7.4 10^3/uL (4.0-10.0)
[2022-08-08] MEDS ORDERED: valACYclovir HCL 500 MG TAB PO ONE (00:40)
[2022-08-08] MEDS ORDERED: DOXYCYCLINE HYCLATE 100MG TABLET PO ONE (00:40)
[2022-08-08] MEDS ORDERED: VALA1TAB5 PO (00:49)
[2022-08-08] MEDS ORDERED: DOXY-443 PO (00:49)
[2022-08-08] MEDS ORDERED: NEUR300C PO (00:53)
[2022-08-08 01:17] VITALS: BP 103/56
[2022-08-12 23:09] LABS: HSV-1 DNA Negative (Negative); HSV-2 DNA Negative (Negative)
== END 2022-08-08 01:18 | disposition home or self-care (01) ==
LOC: M ED 19:37
DX: L03.312 Cellulitis of back [any part except buttock and flank] (principal); B02.9 Zoster without complications; K21.9 Gastro-esophageal reflux disease without esophagitis; R51.9 Headache, unspecified; Z87.442 Personal history of urinary calculi; Z79.01 Long term (current) use of anticoagulants; Z96.661 Presence of right artificial ankle joint; Z88.1 Allergy status to other antibiotic agents; Z88.5 Allergy status to narcotic agent; Z88.8 Allergy status to other drugs, medicaments and biological substances; Z79.891 Long term (current) use of opiate analgesic; Z79.83 Long term (current) use of bisphosphonates; Z79.899 Other long term (current) drug therapy

== ENCOUNTER → 2022-08-09 | Outpatient (CLI) | payer BC, OTHER ==
[~2022-08-09] MED LIST changes: +DOXY-443 PO; +NEUR300C PO; +VALA1TAB5 PO
== END ==
LOC: M SOG 08:58
PROVIDERS: ATTEND Orthopaedic Surgery
DX: S82.841D Displaced bimalleolar fracture of right lower leg, subsequent encounter for closed fracture with routine healing (principal); M79.89 Other specified soft tissue disorders

== ENCOUNTER → 2022-08-15 | Outpatient (CLI) | payer BC, OTHER | LOC: M SOG 09:19 | PROVIDERS: ATTEND Orthopaedic Surgery | DX: S82.431D Displaced oblique fracture of shaft of right fibula, subsequent encounter for closed fracture with routine healing (principal) ==

== ENCOUNTER → 2022-10-11 | Outpatient (CLI) | payer BC, OTHER ==
[~2022-10-11] MED LIST changes: -DOXY100C81 PO; +DOXY100C82 PO; -HYDR200T3 PO; +HYDR200T46 PO; +SENN-111 PO; -SENN18TA PO
== END ==
LOC: M SOG 07:58
PROVIDERS: ATTEND Orthopaedic Surgery
DX: S82.431D Displaced oblique fracture of shaft of right fibula, subsequent encounter for closed fracture with routine healing (principal); W18.30XD Fall on same level, unspecified, subsequent encounter

== ENCOUNTER → 2022-11-12 | Outpatient (REF) | payer BC, OTHER | LOC: M LAB REF 17:37 | PROVIDERS: ATTEND Internal Medicine | DX: M06.9 Rheumatoid arthritis, unspecified (principal) ==

== ENCOUNTER → 2022-12-11 | Outpatient (CLI) | payer BC, OTHER | LOC: M SOG 14:18 | PROVIDERS: ATTEND Orthopaedic Surgery | DX: S82.391D Other fracture of lower end of right tibia, subsequent encounter for closed fracture with routine healing (principal); Y93.9 Activity, unspecified; Y92.9 Unspecified place or not applicable ==

== ENCOUNTER → 2023-02-03 | Outpatient (CLI) | payer BC, OTHER | LOC: M PLAIMG 08:55 | PROVIDERS: ATTEND Nurse Practitioner Family | DX: Z12.39 Encounter for other screening for malignant neoplasm of breast (principal) ==

== ENCOUNTER → 2023-05-06 | Outpatient (CLI) | payer BC, OTHER | LOC: M PLALAB 15:47 | PROVIDERS: ATTEND Internal Medicine | DX: M06.00 Rheumatoid arthritis without rheumatoid factor, unspecified site (principal); Z79.899 Other long term (current) drug therapy ==

== ENCOUNTER → 2023-05-07 | Outpatient (REF) | payer BC, OTHER ==
[2023-05-07 18:05] LABS: BASO % 0.5 % (0.0-1.0); EOS # 0.1 10^3/uL (0.0-0.5); EOS % 1.2 % (0.0-3.0); HEMATOCRIT 40.1 % (36.0-47.0); HEMOGLOBIN 13.1 g/dl (12.0-15.5); LYMPH # 2.6 10^3/uL (1.5-5.0); LYMPH % 29.6 % (24.0-44.0); MEAN CORPUSCULAR HEMOGLOBIN 30.3 pg (27.0-33.0); MEAN CORPUSCULAR HGB CONC 32.7 g/dl (32.0-36.5); MEAN CORPUSCULAR VOLUME 92.8 fl (80.0-96.0); MONO # 0.5 10^3/uL (0.0-0.8); MONO % 5.4 % (2.0-8.0); NEUTROPHILS # 5.5 10^3/uL (1.5-8.5); NEUTROPHILS % 63.1 % (36.0-66.0); PLATELET COUNT, AUTOMATED 376 10^3/uL (150-450); RED BLOOD COUNT 4.32 10^6/uL (4.00-5.40); WHITE BLOOD COUNT 8.6 10^3/uL (4.0-10.0)
[2023-05-07 18:33] LABS: ALBUMIN 3.3 G/DL (3.2-5.2); ALKALINE PHOSPHATASE 144 U/L (46-116); ALT/SGPT 10 U/L (7.0-40); AST/SGOT 9 U/L (<34); BILIRUBIN,TOTAL 0.2 MG/DL (0.3-1.2); BLOOD UREA NITROGEN 7 MG/DL (9-23); CALCIUM LEVEL 8.6 MG/DL (8.5-10.1); CARBON DIOXIDE LEVEL 27 MMOL/L (20-31); CHLORIDE LEVEL 104 MMOL/L (98-107); CREATININE FOR GFR 0.75 MG/DL (0.55-1.30); GLOMERULAR FILTRATION RATE > 60.0 (>58); GLUCOSE, FASTING 80 MG/DL (60-100); POTASSIUM SERUM 3.9 MMOL/L (3.5-5.1); SODIUM LEVEL 137 MMOL/L (136-145)
[2023-05-07 18:37] LABS: FOLATE 6.2 NG/ML (>5.4)
[2023-05-07 18:39] LABS: VITAMIN B12 LEVEL 290 PG/ML (211-911)
== END ==
LOC: M LABDRAWP 16:56
PROVIDERS: ATTEND Psychiatry & Neurology Neurology
DX: G60.9 Hereditary and idiopathic neuropathy, unspecified (principal); E56.0 Deficiency of vitamin E; D51.9 Vitamin B12 deficiency anemia, unspecified; E55.9 Vitamin D deficiency, unspecified; E51.9 Thiamine deficiency, unspecified; E53.1 Pyridoxine deficiency

== ENCOUNTER 2023-07-08 18:50 | Emergency (ER) | payer BC, OTHER ==
[~2023-07-08 18:50] MED LIST changes: -RISP-7 PO; +RISP0.5T82 PO
[2023-07-08 20:53] LABS: BASO % 0.4 % (0.0-1.0); EOS % 0.1 % (0.0-3.0); HEMOGLOBIN 14.4 g/dl (12.0-15.5); LYMPH # 0.4 10^3/uL (1.5-5.0); LYMPH % 4.9 % (24.0-44.0); MEAN CORPUSCULAR HEMOGLOBIN 30.4 pg (27.0-33.0); MEAN CORPUSCULAR HGB CONC 33.5 g/dl (32.0-36.5); MEAN CORPUSCULAR VOLUME 90.9 fl (80.0-96.0); MONO # 0.6 10^3/uL (0.0-0.8); MONO % 7.2 % (2.0-8.0); NEUTROPHILS # 7.3 10^3/uL (1.5-8.5); PLATELET COUNT, AUTOMATED 388 10^3/uL (150-450); RED BLOOD COUNT 4.73 10^6/uL (4.00-5.40); WHITE BLOOD COUNT 8.4 10^3/uL (4.0-10.0)
[2023-07-08] MEDS: NS 1,000 ML IV ONE (20:53)
[2023-07-08] MEDS ORDERED: ISOVUE-370 76% 100ML VIAL As Ordered ONE (21:07)
[2023-07-08] MEDS: FAMOTIDINE 20MG/2ML VIAL IVP ONE (21:10)
[2023-07-08 21:13] LABS: ALBUMIN 3.5 G/DL (3.2-5.2); BILIRUBIN,DIRECT 0.2 MG/DL (<0.4); BILIRUBIN,TOTAL 0.6 MG/DL (0.3-1.2); TOTAL PROTEIN 7.1 G/DL (5.7-8.2)
[2023-07-09 00:06] VITALS: BP 132/72; TEMP 98.9; O2SAT 99
== END 2023-07-09 00:08 | disposition home or self-care (01) ==
LOC: M ED 18:50
DX: A08.4 Viral intestinal infection, unspecified (principal); G43.909 Migraine, unspecified, not intractable, without status migrainosus; J45.909 Unspecified asthma, uncomplicated; K58.9 Irritable bowel syndrome, unspecified; Z88.1 Allergy status to other antibiotic agents; Z88.5 Allergy status to narcotic agent; Z88.8 Allergy status to other drugs, medicaments and biological substances; Z79.891 Long term (current) use of opiate analgesic; Z79.83 Long term (current) use of bisphosphonates; Z79.1 Long term (current) use of non-steroidal anti-inflammatories (NSAID); Z79.899 Other long term (current) drug therapy
CPT/HCPCS: 74177; 80047; 80076; 83605; 83690; 84702; 85025; 96361; 96374; 99284; Q9967; S0028

== ENCOUNTER → 2023-09-19 | Outpatient (CLI) | payer BC ==
[~2023-09-19] MED LIST changes: +BUPR-597 PO; -BUPR300T92 PO; +DOXY-323 PO; -DOXY-443 PO; +ONDA-282 PO; -ONDA4TAB6 PO
[2023-09-19 13:19] LABS: BASO % 0.6 % (0.0-1.0); EOS # 0.1 10^3/uL (0.0-0.5); EOS % 0.7 % (0.0-3.0); HEMATOCRIT 39.1 % (36.0-47.0); HEMOGLOBIN 12.8 g/dl (12.0-15.5); LYMPH # 2.2 10^3/uL (1.5-5.0); MEAN CORPUSCULAR HEMOGLOBIN 29.4 pg (27.0-33.0); MEAN CORPUSCULAR HGB CONC 32.7 g/dl (32.0-36.5); MEAN CORPUSCULAR VOLUME 89.7 fl (80.0-96.0); MONO # 0.5 10^3/uL (0.0-0.8); MONO % 6.5 % (2.0-8.0); NEUTROPHILS # 4.3 10^3/uL (1.5-8.5); NEUTROPHILS % 60.9 % (36.0-66.0); PLATELET COUNT, AUTOMATED 441 10^3/uL (150-450); RED BLOOD COUNT 4.36 10^6/uL (4.00-5.40)
[2023-09-19 13:40] LABS: ERYTHROCYTE SEDIMENTATION RATE 54 mm/hr (0-20)
[2023-09-19 13:42] LABS: ALBUMIN 3.4 G/DL (3.2-5.2); ALKALINE PHOSPHATASE 154 U/L (46-116); ALT/SGPT 14 U/L (7.0-40); AST/SGOT < 8 U/L (<34); BILIRUBIN,DIRECT < 0.1 MG/DL (<0.4); BILIRUBIN,TOTAL 0.3 MG/DL (0.3-1.2); BLOOD UREA NITROGEN 7 MG/DL (9-23); CALCIUM LEVEL 8.2 MG/DL (8.5-10.1); CARBON DIOXIDE LEVEL 26 MMOL/L (20-31); CHLORIDE LEVEL 105 MMOL/L (98-107); CREATININE FOR GFR 0.72 MG/DL (0.55-1.30); GLOMERULAR FILTRATION RATE > 60.0 (>58); GLUCOSE, FASTING 90 MG/DL (60-100); SODIUM LEVEL 137 MMOL/L (136-145); TOTAL PROTEIN 6.7 G/DL (5.7-8.2)
[2023-09-19 14:01] LABS: HEPATITIS B SURFACE ANTIGEN NEGATIVE (NEGATIVE)
[2023-09-19 14:07] LABS: HEPATITIS B SURFACE ANTIBODY NEGATIVE (POSITIVE)
[2023-09-19 14:22] LABS: HEPATITIS C VIRUS ABY INDEX < 0.02 INDEX (<0.8)
== END ==
LOC: M PLALAB 10:06
PROVIDERS: ATTEND Internal Medicine
DX: M06.00 Rheumatoid arthritis without rheumatoid factor, unspecified site (principal); Z11.59 Encounter for screening for other viral diseases; Z79.899 Other long term (current) drug therapy

== ENCOUNTER 2023-11-14 12:05 | Emergency (ER) | payer BC ==
[~2023-11-14] VITALS: Ht 162.6 cm; Wt 110.8 kg
[2023-11-14] MEDS ORDERED: METH50IN8 (12:23)
[2023-11-14] MEDS ORDERED: FOLI1TAB11 (12:23)
[2023-11-14] MEDS ORDERED: TRAM50TA2 (12:23)
[2023-11-14 15:15] LABS: BASO % 0.4 % (0.0-1.0); EOS % 0.4 % (0.0-3.0); HEMATOCRIT 38.1 % (36.0-47.0); HEMOGLOBIN 12.9 g/dl (12.0-15.5); LYMPH # 2.1 10^3/uL (1.5-5.0); LYMPH % 20.7 % (24.0-44.0); MEAN CORPUSCULAR HEMOGLOBIN 30.8 pg (27.0-33.0); MEAN CORPUSCULAR HGB CONC 33.9 g/dl (32.0-36.5); MEAN CORPUSCULAR VOLUME 90.9 fl (80.0-96.0); MONO # 0.7 10^3/uL (0.0-0.8); MONO % 6.4 % (2.0-8.0); NEUTROPHILS # 7.3 10^3/uL (1.5-8.5); NEUTROPHILS % 71.8 % (36.0-66.0); PLATELET COUNT, AUTOMATED 309 10^3/uL (150-450); RED BLOOD COUNT 4.19 10^6/uL (4.00-5.40); WHITE BLOOD COUNT 10.2 10^3/uL (4.0-10.0)
[2023-11-14 15:37] LABS: HCG, SERUM QUALITATIVE NEGATIVE (NEGATIVE)
[2023-11-14] MEDS ORDERED: ISOVUE-370 76% 100ML VIAL As Ordered ONE (15:41)
[2023-11-14] MEDS: ACETAMINOPHEN 500 MG TAB PO ONE (16:12)
[2023-11-14] MEDS ORDERED: FLUTISP (16:25)
[2023-11-14 16:30] VITALS: BP 122/84; TEMP 97.2; O2SAT 100
== END 2023-11-14 16:57 | disposition home or self-care (01) ==
LOC: M ED 12:05
DX: J01.90 Acute sinusitis, unspecified (principal); M51.36 Other intervertebral disc degeneration, lumbar region; F43.10 Post-traumatic stress disorder, unspecified; G43.909 Migraine, unspecified, not intractable, without status migrainosus; Z86.711 Personal history of pulmonary embolism; Z88.1 Allergy status to other antibiotic agents; Z88.5 Allergy status to narcotic agent; Z88.8 Allergy status to other drugs, medicaments and biological substances; Z79.899 Other long term (current) drug therapy; Z79.83 Long term (current) use of bisphosphonates; Z79.1 Long term (current) use of non-steroidal anti-inflammatories (NSAID)
CPT/HCPCS: 36415; 70491; 80047; 84703; 85025; 99283; Q9967

== ENCOUNTER → 2024-03-15 | Outpatient (CLI) | payer BC ==
[~2024-03-15] MED LIST changes: -DOXY-323 PO; +DOXY-441 PO; +FLUTISP; +FOLI1TAB11; +HYOS0.3723 PO; -HYOS0.374 PO; +METH50IN8; -SENN-111 PO; +SENN-165 PO; +TRAM50TA2; +VANC250C12 PO; -VANC250C3 PO
== END ==
LOC: M RAD 15:25
PROVIDERS: ATTEND Physician Assistant Medical
DX: J01.00 Acute maxillary sinusitis, unspecified (principal)

== ENCOUNTER → 2024-05-14 | Outpatient (CLI) | payer OTHER ==
[2024-05-14 17:26] LABS: BASO % 0.5 % (0.0-1.0); EOS # 0.1 10^3/uL (0.0-0.5); EOS % 1.4 % (0.0-3.0); HEMATOCRIT 40.2 % (36.0-47.0); HEMOGLOBIN 12.8 g/dl (12.0-15.5); LYMPH # 1.9 10^3/uL (1.5-5.0); LYMPH % 31.9 % (24.0-44.0); MEAN CORPUSCULAR HEMOGLOBIN 29.5 pg (27.0-33.0); MEAN CORPUSCULAR HGB CONC 31.8 g/dl (32.0-36.5); MEAN CORPUSCULAR VOLUME 92.6 fl (80.0-96.0); MONO # 0.5 10^3/uL (0.0-0.8); MONO % 8.6 % (2.0-8.0); NEUTROPHILS # 3.4 10^3/uL (1.5-8.5); NEUTROPHILS % 57.4 % (36.0-66.0); PLATELET COUNT, AUTOMATED 372 10^3/uL (150-450); RED BLOOD COUNT 4.34 10^6/uL (4.00-5.40); WHITE BLOOD COUNT 5.9 10^3/uL (4.0-10.0)
[2024-05-14 17:37] LABS: ERYTHROCYTE SEDIMENTATION RATE 32 mm/hr (0-20)
[2024-05-14 17:43] LABS: C REACTIVE PROTEIN QUANTITATIV 0.59 MG/DL (<1.0)
[2024-05-14 17:44] LABS: ALBUMIN 3.3 G/DL (3.2-5.2); ALKALINE PHOSPHATASE 142 U/L (35-104); ALT/SGPT 22 U/L (7.0-40); AST/SGOT 12 U/L (<34); BILIRUBIN,DIRECT < 0.1 MG/DL (<0.4); BILIRUBIN,TOTAL 0.2 MG/DL (0.3-1.2); BLOOD UREA NITROGEN 6 MG/DL (9-23); CALCIUM LEVEL 8.9 MG/DL (8.5-10.1); CARBON DIOXIDE LEVEL 27 MMOL/L (20-31); CHLORIDE LEVEL 105 MMOL/L (98-107); CREATININE FOR GFR 0.88 MG/DL (0.55-1.30); GLOMERULAR FILTRATION RATE > 60.0 (>58); GLUCOSE, FASTING 82 MG/DL (60-100); POTASSIUM SERUM 4.8 MMOL/L (3.5-5.1); SODIUM LEVEL 139 MMOL/L (136-145); TOTAL PROTEIN 7.1 G/DL (5.7-8.2)
== END ==
LOC: M PLALAB 09:20
PROVIDERS: ATTEND Internal Medicine
DX: M06.00 Rheumatoid arthritis without rheumatoid factor, unspecified site (principal)

== ENCOUNTER → 2024-06-04 | Outpatient (CLI) | payer OTHER, BC ==
[2024-06-04 18:58] LABS: IMMUNOGLOBULIN A 289.9 MG/DL (40-350); IMMUNOGLOBULIN M 97.7 MG/DL (50-300)
[2024-06-06 08:12] LABS: T P ELECTROPHORESIS SO 7.1 g/dL (6.1-8.1)
[2024-06-08 12:57] LABS: ALPHA-1-GLOBULINS SO 0.3 g/dL (0.2-0.3); ALPHA-2-GLOBULINS SO 0.8 g/dL (0.5-0.9); BETA 2 GLOBULIN 0.5 g/dL (0.2-0.5); BETA-GLOBULIN SO 0.5 g/dL (0.4-0.6); GAMMA GLOBULINS SO 1.1 g/dL (0.8-1.7)
== END ==
LOC: M PLALAB 15:56
PROVIDERS: ATTEND Internal Medicine
DX: B99.9 Unspecified infectious disease (principal)

== ENCOUNTER → 2024-09-29 | Outpatient (CLI) | payer BC ==
[~2024-09-29] MED LIST changes: -BUPR-597 PO; +BUPR-766 PO; +DOXY-442 PO; -DOXY100C82 PO
== END ==
LOC: M RAD 10:50
PROVIDERS: ATTEND Internal Medicine
DX: M25.561 Pain in right knee (principal); M25.562 Pain in left knee; M25.551 Pain in right hip; M25.552 Pain in left hip; M25.541 Pain in joints of right hand; M25.542 Pain in joints of left hand

== ENCOUNTER 2024-11-16 16:36 | Emergency (ER) | payer BC, OTHER ==
[~2024-11-16] VITALS: Ht 162.6 cm; Wt 108.6 kg
[2024-11-16 16:57] VITALS: TEMP 98.9
[2024-11-16] MEDS ORDERED: HYDR-3713 PO (18:51)
[2024-11-16 19:07] VITALS: BP 120/71; O2SAT 98
== END 2024-11-16 19:10 | disposition home or self-care (01) ==
LOC: M ED 16:36
DX: G50.0 Trigeminal neuralgia (principal); J01.90 Acute sinusitis, unspecified; M06.9 Rheumatoid arthritis, unspecified; G43.909 Migraine, unspecified, not intractable, without status migrainosus; K21.9 Gastro-esophageal reflux disease without esophagitis; F43.10 Post-traumatic stress disorder, unspecified; F41.9 Anxiety disorder, unspecified; F32.A Depression, unspecified; Z79.1 Long term (current) use of non-steroidal anti-inflammatories (NSAID); Z79.83 Long term (current) use of bisphosphonates; Z79.899 Other long term (current) drug therapy; Z88.1 Allergy status to other antibiotic agents; Z88.8 Allergy status to other drugs, medicaments and biological substances; Z88.5 Allergy status to narcotic agent

== ENCOUNTER → 2024-12-23 | Outpatient (CLI) | payer BC ==
[~2024-12-23] MED LIST changes: +ISOVUE-370 76% 100 ML VIAL As Ordered ONE
== END ==
LOC: M RAD 06:52
PROVIDERS: ATTEND Nurse Practitioner Family
DX: R10.9 Unspecified abdominal pain (principal); R11.0 Nausea

== ENCOUNTER 2024-12-24 13:30 | Emergency (ER) | payer BC ==
[~2024-12-24] VITALS: Ht 162.6 cm; Wt 105.4 kg
[~2024-12-24 13:30] MED LIST changes: -ISOVUE-370 76% 100 ML VIAL As Ordered ONE
[2024-12-24 14:41] LABS: BASO # 0.0 10^3/uL (0.0-0.2); BASO % 0.4 % (0.0-1.0); EOS # 0.1 10^3/uL (0.0-0.5); EOS % 0.7 % (0.0-3.0); LYMPH # 2.1 10^3/uL (1.5-5.0); LYMPH % 21.5 % (24.0-44.0); MONO # 0.6 10^3/uL (0.0-0.8); MONO % 5.7 % (2.0-8.0); NEUTROPHILS # 6.9 10^3/uL (1.5-8.5); NEUTROPHILS % 71.5 % (36.0-66.0); PLATELET COUNT, AUTOMATED 466 10^3/uL (150-450)
[2024-12-24 14:57] LABS: ALT/SGPT 17 U/L (7.0-40); AST/SGOT 19 U/L (<34)
[2024-12-24] MEDS: ONDANSETRON 4MG 2ML VIAL IV ONE (18:19)
[2024-12-24 18:35] LABS: C REACTIVE PROTEIN QUANTITATIV < 0.50 MG/DL (<1.0)
[2024-12-24 18:44] LABS: ERYTHROCYTE SEDIMENTATION RATE 35 mm/hr (0-20)
[2024-12-24] MEDS ORDERED: ISOVUE-370 76% 100 ML VIAL As Ordered ONE (18:54)
[2024-12-24 19:10] LABS: CALCIUM LEVEL 8.3 MG/DL (8.5-10.1); CARBON DIOXIDE LEVEL 27 MMOL/L (20-31); CHLORIDE LEVEL 105 MMOL/L (98-107); CREATININE FOR GFR 0.79 MG/DL (0.55-1.30); GLOMERULAR FILTRATION RATE > 90.0 (>58); POTASSIUM SERUM 3.6 MMOL/L (3.5-5.1); SODIUM LEVEL 140 MMOL/L (136-145)
[2024-12-24] MEDS: ACETAMINOPHEN *IV* 1,000 MG in IV 1 EA IV ONE (19:29)
[2024-12-24] MEDS ORDERED: SUCR1TA PO (21:34)
[2024-12-24 21:52] VITALS: BP 112/58; TEMP 97.5; O2SAT 97
== END 2024-12-24 21:53 | disposition home or self-care (01) ==
LOC: M ED 13:30
DX: R10.9 Unspecified abdominal pain (principal); M05.9 Rheumatoid arthritis with rheumatoid factor, unspecified; Z86.711 Personal history of pulmonary embolism; Z88.1 Allergy status to other antibiotic agents; Z88.5 Allergy status to narcotic agent; Z88.8 Allergy status to other drugs, medicaments and biological substances; Z79.52 Long term (current) use of systemic steroids; Z79.1 Long term (current) use of non-steroidal anti-inflammatories (NSAID); Z79.83 Long term (current) use of bisphosphonates; Z79.899 Other long term (current) drug therapy
CPT/HCPCS: 74177; 80048; 80076; 83605; 83690; 85025; 85652; 86140; 96365; 96366; 96374; 99284; J0131; J2405; Q9967

== ENCOUNTER 2025-01-28 06:31 | Emergency (ER) | payer BC, OTHER ==
[~2025-01-28] VITALS: Ht 162.6 cm; Wt 101.9 kg
[2025-01-28] MEDS: ONDANSETRON 4MG/2ML VIAL IV ONE (08:47)
[2025-01-28] MEDS: NS (Normal Saline) 0.9% 1,000 ML IV ONE (08:48)
[2025-01-28 08:50] LABS: BASO # 0.0 10^3/uL (0.0-0.2); BASO % 0.2 % (0.0-1.0); EOS # 0.1 10^3/uL (0.0-0.5); EOS % 0.6 % (0.0-3.0); LYMPH # 0.9 10^3/uL (1.5-5.0); LYMPH % 6.0 % (24.0-44.0); MONO # 0.8 10^3/uL (0.0-0.8); MONO % 5.2 % (2.0-8.0); NEUTROPHILS # 13.1 10^3/uL (1.5-8.5); NEUTROPHILS % 87.6 % (36.0-66.0); PLATELET COUNT, AUTOMATED 455 10^3/uL (150-450)
[2025-01-28 09:17] LABS: INR 0.96
[2025-01-28 09:19] LABS: ALT/SGPT 15 U/L (7.0-40); AST/SGOT 28 U/L (<34); CALCIUM LEVEL 9.1 MG/DL (8.5-10.1); CARBON DIOXIDE LEVEL 19 MMOL/L (20-31); CHLORIDE LEVEL 108 MMOL/L (98-107); CREATININE FOR GFR 0.91 MG/DL (0.55-1.30); GLOMERULAR FILTRATION RATE 79.3 (>58); POTASSIUM SERUM 4.2 MMOL/L (3.5-5.1); SODIUM LEVEL 140 MMOL/L (136-145)
[2025-01-28 09:22] LABS: HCG, SERUM QUALITATIVE NEGATIVE (NEGATIVE)
[2025-01-28] MEDS: DICYCLOMINE 10 MG CAP PO ONE (09:35)
[2025-01-28] MEDS: MORPHINE 4 MG/ML 1 ML VIAL IV ONE (09:35)
[2025-01-28] MEDS ORDERED: ISOVUE-370 76% 100 ML VIAL As Ordered ONE (09:39)
[2025-01-28] MEDS ORDERED: ONDA-282 PO (12:03)
[2025-01-28] MEDS ORDERED: DICY-61 PO (12:03)
[2025-01-28] MEDS: METOCLOPRAMIDE 10 MG TAB PO ONE (12:52)
[2025-01-28 12:55] VITALS: BP 120/76; TEMP 97.3; O2SAT 100
== END 2025-01-28 12:56 | disposition home or self-care (01) ==
LOC: M ED 06:31
DX: A08.11 Acute gastroenteropathy due to Norwalk agent (principal); A04.0 Enteropathogenic Escherichia coli infection; K76.0 Fatty (change of) liver, not elsewhere classified; N83.202 Unspecified ovarian cyst, left side; Z79.1 Long term (current) use of non-steroidal anti-inflammatories (NSAID); Z79.899 Other long term (current) drug therapy; Z88.1 Allergy status to other antibiotic agents; Z88.5 Allergy status to narcotic agent; Z88.8 Allergy status to other drugs, medicaments and biological substances
CPT/HCPCS: 74177; 80048; 80076; 82150; 83605; 83690; 84703; 85025; 85610; 85730; 87507; 96374; 96375; 99284; J2405; Q9967

== ENCOUNTER 2025-02-13 23:31 | Emergency (ER) | payer BC, OTHER ==
[~2025-02-13] VITALS: Ht 162.6 cm; Wt 106.8 kg
[~2025-02-13 23:31] MED LIST changes: +DICY-61 PO
[2025-02-14] MEDS: KETOROLAC 30 MG/ML 1 ML VIAL IV ONE (00:20)
[2025-02-14] MEDS: PANTOPRAZOLE 40MG VIAL IV ONE (00:20)
[2025-02-14] MEDS: NS (Normal Saline) 0.9% 1,000 ML IV ONE (00:20)
[2025-02-14 00:47] LABS: BASO # 0.0 10^3/uL (0.0-0.2); BASO % 0.2 % (0.0-1.0); EOS # 0.1 10^3/uL (0.0-0.5); EOS % 0.7 % (0.0-3.0); LYMPH # 1.3 10^3/uL (1.5-5.0); LYMPH % 9.3 % (24.0-44.0); MONO # 0.8 10^3/uL (0.0-0.8); MONO % 5.7 % (2.0-8.0); NEUTROPHILS # 11.5 10^3/uL (1.5-8.5); NEUTROPHILS % 83.7 % (36.0-66.0); PLATELET COUNT, AUTOMATED 442 10^3/uL (150-450)
[2025-02-14 01:11] LABS: ALT/SGPT 16.0 U/L (7.0-40); AST/SGOT 16.0 U/L (<34); CALCIUM LEVEL 9.0 MG/DL (8.5-10.1); CARBON DIOXIDE LEVEL 22.0 MMOL/L (20-31); CHLORIDE LEVEL 103.0 MMOL/L (98-107); CREATININE FOR GFR 0.83 MG/DL (0.55-1.30); GLOMERULAR FILTRATION RATE 88.5 (>58); POTASSIUM SERUM 3.7 MMOL/L (3.5-5.1); SODIUM LEVEL 137.0 MMOL/L (136-145)
[2025-02-14 02:07] VITALS: BP 107/63; TEMP 97; O2SAT 97
== END 2025-02-14 02:16 | disposition home or self-care (01) ==
LOC: M ED 23:31
DX: R11.2 Nausea with vomiting, unspecified (principal); R19.7 Diarrhea, unspecified; K58.9 Irritable bowel syndrome, unspecified; G43.909 Migraine, unspecified, not intractable, without status migrainosus; F12.10 Cannabis abuse, uncomplicated; Z79.1 Long term (current) use of non-steroidal anti-inflammatories (NSAID); Z79.899 Other long term (current) drug therapy; Z88.1 Allergy status to other antibiotic agents; Z88.5 Allergy status to narcotic agent; Z88.8 Allergy status to other drugs, medicaments and biological substances
CPT/HCPCS: 80048; 80076; 83690; 85025; 87507; 96361; 96374; 99284; J1885; J2470; J2765

== ENCOUNTER → 2025-02-18 | Outpatient (CLI) | payer BC ==
[2025-02-18 18:39] LABS: VITAMIN B12 LEVEL 261.0 PG/ML (211-911)
[2025-02-18 19:41] LABS: ESTIMATED AVERAGE GLUCOSE 103.0 MG/DL (60-110)
[2025-02-20 06:38] LABS: T P ELECTROPHORESIS SO 6.6 g/dL (6.1-8.1)
[2025-02-22 11:08] LABS: ALBUMIN SPEP 3.8 g/dL (3.8-4.8); ALPHA-1-GLOBULINS SO 0.3 g/dL (0.2-0.3); ALPHA-2-GLOBULINS SO 0.6 g/dL (0.5-0.9); BETA 2 GLOBULIN 0.4 g/dL (0.2-0.5); BETA-GLOBULIN SO 0.5 g/dL (0.4-0.6); GAMMA GLOBULINS SO 0.9 g/dL (0.8-1.7)
== END ==
LOC: M PLALAB 16:12
PROVIDERS: ATTEND Psychiatry & Neurology Neurology
DX: E11.40 Type 2 diabetes mellitus with diabetic neuropathy, unspecified (principal); E53.8 Deficiency of other specified B group vitamins; E51.9 Thiamine deficiency, unspecified; E53.1 Pyridoxine deficiency

== ENCOUNTER → 2025-02-18 | Outpatient (CLI) | payer BC ==
[2025-02-18 18:19] LABS: BASO # 0.1 10^3/uL (0.0-0.2); BASO % 0.6 % (0.0-1.0); EOS # 0.1 10^3/uL (0.0-0.5); EOS % 1.6 % (0.0-3.0); LYMPH # 3.0 10^3/uL (1.5-5.0); LYMPH % 36.2 % (24.0-44.0); MONO # 0.5 10^3/uL (0.0-0.8); MONO % 6.6 % (2.0-8.0); NEUTROPHILS # 4.5 10^3/uL (1.5-8.5); NEUTROPHILS % 54.9 % (36.0-66.0); PLATELET COUNT, AUTOMATED 441 10^3/uL (150-450)
[2025-02-18 18:36] LABS: C REACTIVE PROTEIN QUANTITATIV < 0.50 MG/DL (<1.0)
[2025-02-18 18:37] LABS: ALT/SGPT 22 U/L (7.0-40); AST/SGOT 16 U/L (<34); CALCIUM LEVEL 8.3 MG/DL (8.5-10.1); CARBON DIOXIDE LEVEL 26 MMOL/L (20-31); CHLORIDE LEVEL 101 MMOL/L (98-107); CREATININE FOR GFR 0.73 MG/DL (0.55-1.30); GLOMERULAR FILTRATION RATE > 90.0 (>58); POTASSIUM SERUM 3.4 MMOL/L (3.5-5.1); SODIUM LEVEL 138 MMOL/L (136-145)
== END ==
LOC: M PLALAB 16:10
PROVIDERS: ATTEND Internal Medicine
DX: M06.00 Rheumatoid arthritis without rheumatoid factor, unspecified site (principal)

== ENCOUNTER → 2025-03-22 | Outpatient (REF) | payer BC ==
[2025-03-24 17:03] LABS: HPV APTIMA Not Detected (Not Detected)
== END ==
LOC: M SFHCWAGY 18:02
PROVIDERS: ATTEND Nurse Practitioner Family
DX: R87.610 Atypical squamous cells of undetermined significance on cytologic smear of cervix (ASC-US) (principal); Z11.51 Encounter for screening for human papillomavirus (HPV)
CPT/HCPCS: 87624; G0123

== ENCOUNTER → 2025-03-22 | Outpatient (CLI) | payer BC | LOC: M WHC 13:33 | PROVIDERS: ATTEND Nurse Practitioner Family | DX: Z12.31 Encounter for screening mammogram for malignant neoplasm of breast (principal); R92.323 Mammographic fibroglandular density, bilateral breasts ==